=== PATIENT | female | born 1950 | race Caucasian/White ===

== ENCOUNTER 2016-12-25 05:18 | Inpatient (IN) | payer MEDICARE ==
[~2016-12-25] VITALS: Ht 165.1 cm; Wt 70.8 kg
[2016-12-25] VITALS (14 sets, daily range): BP systolic 116–148; BP diastolic 58–82
[~2016-12-25 05:18] MED LIST: ALPR1TAB2 PO; ASPI325T4 PO; ATORVASTATIN CA80 MG PO; CITA40TA5 PO; CLOP75TA PO; CYCL10TA2 PO; DOCU-27 PO; FURO80TA3 PO; GABA300S PO; GUAI1TAB PO; HYDR-2672 PO; ISOS60TA2 PO; LEVO500T38 PO; MULT-246 PO; OMEG1CAP38 PO; PANT40TA5 PO; POTA20TA12 PO; PRED-220 PO; PRED20TA PO; PROAIR HFA8.5 GM INH; SUCR1TAB PO; VERA180T4 PO; ZOLP10TA4 PO
[2016-12-25] MEDS ORDERED: IPRATRPIUM/ALBUTEROL 0.5/2.5MG 3 ML NEBU. NEB ONE (05:30)
[2016-12-25] MEDS ORDERED: IV NORMAL SALINE 500ML BAG 500 ML IV ONE (06:15)
[2016-12-25 06:16] LABS: BASO % 0 % (0-3); EOS % 0 % (0-3); HEMATOCRIT 39.7 % (36.0-47.0); HEMOGLOBIN 12.8 g/dL (12.0-15.5); LYMPH # 0.2 x10^3/uL (1.0-4.8); LYMPH % 2 % (24-48); MEAN CORPUSCULAR HEMOGLOBIN 26 pg (25-35); MEAN CORPUSCULAR HGB CONC 32 g/dL (31-37); MEAN CORPUSCULAR VOLUME 82 fL (79-100); MONO % 12 % (0-9); NEUT % 86 % (31-73); PLATELET COUNT 126 x10^3/uL (140-400); RED BLOOD COUNT 4.85 x10^6/uL (3.50-5.40); RED CELL DISTRIBUTION WIDTH 16.2 % (11.5-14.5); WHITE BLOOD COUNT 7.7 x10^3/uL (4.0-11.0)
[2016-12-25] MEDS ORDERED: DILTIAZEM IV PUSH 25 MG/5 ML VIAL. IVP ONE (06:30)
[2016-12-25] MEDS ORDERED: DILTIAZEM 125 MG in IV DEXTROSE 5% 100 ML IV ONE (06:30)
[2016-12-25 07:06] LABS: CALCIUM 9.2 mg/dL (8.5-10.1); CREATININE 0.8 mg/dL (0.6-1.0); POTASSIUM 3.2 mmol/L (3.5-5.1)
--- NOTE | 2016-12-25 07:31 | RAD ---
Portable chest, 12/25/2016: History: Shortness of breath Comparison is made to a study from 09/30/2016. The heart size and pulmonary vascularity are normal. There is calcific plaquing of the aorta. No pulmonary infiltrates are seen. There is no evidence of pleural fluid. IMPRESSION: No acute cardiopulmonary abnormality is detected.
--- NOTE | 2016-12-25 07:37 | PHYS DOC ---
Past Medical History Past Medical History: COPD, Depression, GERD, Hypertension, CA Additional Past Medical Histor: Alzheimer's, Chronic back and knee pain Past Surgical History: Angioplasty, Cholecystectomy, Hysterectomy, Other Additional Past Surgical Histo: WITH STENTS,KNEE SURGERY Alcohol Use: None Drug Use: None Adult General Chief Complaint Chief Complaint: SHORTNESS OF BREATH HPI HPI Patient is a 66 year old female who presents with complaint of shortness of breath. Patient states her symptoms started last night. The patient has history of COPD and is normally on 2 L nasal cannula. By arrival to the emergency department, the patient was found to have an O2 sat of 88%. The patient was given a DuoNeb treatment prior to my patient interview. The patient states that she is still having shortness of breath at this time. Patient has had history of atrial fibrillation in the past. Patient was found to have a rapid heartbeat area patient states that she does feel a rapid heart rate. Patient denies any chest pain, nausea, vomiting. Patient denies productive cough. Review of Systems Review of Systems Constitutional: Denies fever or chills [] Eyes: Denies change in visual acuity, redness, or eye pain [] HENT: Denies nasal congestion or sore throat [] Respiratory: Shortness of breath [] Cardiovascular: Racing heartbeat, edema [] GI: Denies abdominal pain, nausea, vomiting, bloody stools or diarrhea [] : Denies dysuria or hematuria [] Musculoskeletal: Denies back pain or joint pain [] Integument: Denies rash or skin lesions [] Neurologic: Denies headache, focal weakness or sensory changes [] Current Medications Current Medications Current Medications Medications (Trade) Dose Ordered Sig/Sima Start Time Stop Time Status Last Admin Dose Admin Albuterol/ Ipratropium 3 ml 3 ml 1X ONCE 12/25/16 05:30 12/25/16 05:31 DC 12/25/16 05:49 3 ML Sodium Chloride (Iv Sodium Chloride 0.9% 500ml Bag) 500 ml @ 500 mls/hr 1X ONCE 12/25/16 06:15 12/25/16 07:14 DC 12/25/16 06:09 500 MLS/HR Allergies Allergies Allergies Coded Allergies Type Severity Reaction Last Updated Verified I S O L A T I O N *CONTACT* Allergy Unknown 09/14/16 Yes No Known Medication Allergies Allergy Unknown 09/14/16 Yes Physical Exam Physical Exam Constitutional: Alert, afebrile, appears in moderate respiratory distress. [] HENT: Normocephalic, atraumatic, bilateral external ears normal, oropharynx moist, no oral exudates, nose normal. [] Eyes: PERRLA, EOMI, conjunctiva normal, no discharge. [] Neck: Normal range of motion, no tenderness, supple, no stridor. [] Cardiovascular: Tachycardia, irregular rhythm, no murmur [] Lungs & Thorax: Bilateral breath sounds clear to auscultation [] Abdomen: Bowel sounds normal, soft, no tenderness, no masses, no pulsatile masses. [] Skin: Warm, dry, no erythema, no rash. [] Back: No tenderness, no CVA tenderness. [] Extremities: No tenderness, no cyanosis, no clubbing, ROM intact, 2+ edema in the bilateral lower extremities. [] Neurologic: Alert and oriented X 3, normal motor function, normal sensory function, no focal deficits noted. [] Current Patient Data Vital Signs Vital Signs Date Time Temp Pulse Resp B/P Pulse Ox O2 Delivery O2 Flow Rate FiO2 12/25/16 05:53 114 21 115/77 96 12/25/16 05:52 Nasal Cannula 3.0 12/25/16 05:19 99.0 99.0 Lab Values Laboratory Tests Test 12/25/16 05:49 12/25/16 05:50 Influenza Type A Antigen Negative (NEGATIVE) Influenza Type B Antigen Negative (NEGATIVE) White Blood Count 7.7x10^3/uL (4.0-11.0) Red Blood Count 4.85x10^6/uL (3.50-5.40) Hemoglobin 12.8g/dL (12.0-15.5) Hematocrit 39.7% (36.0-47.0) Mean Corpuscular Volume 82fL (79-100) Mean Corpuscular Hemoglobin 26pg (25-35) Mean Corpuscular Hemoglobin Concent 32g/dL (31-37) Red Cell Distribution Width 16.2% (11.5-14.5) H Platelet Count 126x10^3/uL (140-400) L Neutrophils (%) (Auto) 86% (31-73) H Lymphocytes (%) (Auto) 2% (24-48) L Monocytes (%) (Auto) 12% (0-9) H Eosinophils (%) (Auto) 0% (0-3) Basophils (%) (Auto) 0% (0-3) Neutrophils # (Auto) 6.6x10^3uL (1.8-7.7) Lymphocytes # (Auto) 0.2x10^3/uL (1.0-4.8) L Monocytes # (Auto) 0.9x10^3/uL (0.0-1.1) Eosinophils # (Auto) 0.0x10^3/uL (0.0-0.7) Basophils # (Auto) 0.0x10^3/uL (0.0-0.2) Segmented Neutrophils % 89% (35-66) H Lymphocytes % 2% (24-48) L Monocytes % 9% (0-10) Platelet Estimate Decreased (ADEQUATE) Troponin I Quantitative 1.330ng/mL (0.000-0.055) Laboratory Tests 12/25/16 05:50 EKG EKG EKG #1 at 0530 interpreted by me: Heart rate 125, atrial fibrillation, normal axis, no acute ST/T-wave abnormalities present EKG #2 at 0605 interpreted by me: Heart rate 167, A. fib with RVR, normal axis, no acute ST/T-wave abnormalities present [] Radiology/Procedures Radiology/Procedures One view AP chest x-ray interpreted by me: No infiltrate, no effusion, normal cardiac silhouette [] Course & Med Decision Making Course & Med Decision Making Pertinent Labs and Imaging studies reviewed. (See chart for details) Patient was given IV Cardizem 20 mg bolus followed by continuous infusion. Patient found to have a positive troponin of 1.33. This is likely due to rapid heart rate. The patient will be admitted for further treatment. I spoke with Dr. Traylor who accepted care patient in hospital. I also consulted Dr. Meza of cardiology who will follow patient in hospital. Critical care time excluding procedures: 45 minutes Dragon Disclaimer Dragon Disclaimer This electronic medical record was generated, in whole or in part, using a voice recognition dictation system. Departure Departure Impression: Primary Impression: Atrial fibrillation with RVR Additional Impressions: COPD exacerbation Cardiac ischemia Disposition: ADMITTED INPATIENT Admitting Physician: Carl Traylor Condition: GUARDED Referrals: VÍCTOR STARK MD (PCP) Problem Qualifiers CLAUDETTE SNOW MD Dec 25, 2016 07:37
[2016-12-25 07:51] LABS: OBC FLU VALID
[2016-12-25 08:39] LABS: PLT ESTIMATE DECREASED (ADEQUATE)
--- NOTE | 2016-12-25 09:22 | EKG ---
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
--- NOTE | 2016-12-25 09:40 | ACF ---
Admit Criteria Forms Admit Criteria Forms Admit Criteria Forms ATRIAL FIBRILLATION Clinical Indications for Admission to Inpatient Care (Place 'X' for any and all applicable criteria): Admission indicated for ANY ONE of the following(1)(2)(3)(4)(5) : [X]I. Myocardial ischemia [X]II. Dyspnea or hypoxemia [ ]III. Hemodynamic instability [ ]IV. Heart failure (e.g., pulmonary edema) (7) [ ]V. New-onset (less than 48 hours) atrial fibrillation with high risk for causing complications secondary to comorbidities (eg, symptomatic heart failure ) [ ]. Altered mental status [ ]VII. Syncope [ ]VIII. Patient has implantable cardioverter defibrillator that has fired more than once within past 24hr or needs immediate adjustment of settings that cannot be done other than in inpatient setting. (8) [ ]IX. Suspected accessory pathway (e.g., Hkhkc-Bilhaztyo-Ndlfz syndrome) on ECG [ ]X. Recent systemic thromboembolism (eg, stroke) [ ]XI. Medication toxicity (e.g., digitalis) causing arrhythmia(9) [ ]XII. Underlying medical condition that necessitates inpatient care (e.g., thyrotoxicosis, pneumonia) (10) [ ]XIII. Continuous ECG monitoring is required for condition causing arrhythmia (e.g., severe hyperkalemia, hypokalemia, acid-base disturbance).(11)(12)(13) [ ]XIV. Initiation of antiarrhythmic drug therapy is needed in patient at high risk of adverse effects as indicated by ANY ONE of the following: [ ]a) Significant structural heart disease (e.g., reduced ejection fraction, congenital heart disease, valvular heart disease) [ ]b) Prolonged QT interval [ ]c) Underlying sinus node or atrioventricular conduction disturbances [ ]d) Need for treatment with antiarrhythmic drugs that have significant proarrhythmic potential (e.g., dofetilide, sotalol, procainamide) [ ]e) Patient whose sinus rhythm has never been observed on ECG [ ]XV. Intolerable symptoms despite optimal outpatient treatment [ ]XVI. Elective or urgent cardioversion that cannot be performed on outpatient basis or during observation care. [A] (Use also Atrial Fibrillation: Observation Care ) as appropriate.(14) [ ]XVII.Contraindications and/or Inappropriate clinical situations for Observational Care in patients with Atrial Fibrillation, when ANY ONE of the following is required: [ ]a) Patient with High risk of cardiac embolism (e.g, patients with previous cardiac embolism, LVEF < 40%, age >75 and patients with prosthetic valve) 18 [ ]b) Patient with Moderate risk including DM patient, CAD and patient aged 65-75 18 [ ]c) Patient with any change in cardiac biomarker especially troponin should be managed as high risk in an inpatient setting 19 [ ]d) Physician judgement irrespective of ECG and other diagnostic findings 20 [ ]XVIII.General contraindications and/or Inappropriate clinical situations for Observational Care in patients with Atrial Fibrillation, when ANY ONE of the following is required: [ ]a) Prediction of prolongation of LOS based on ANY ONE of the following may be considered as a contraindication for observational care 2, 3, 4, 5, 6, 7, 8, 9, 10, 11 [ ]i) Age > 65 yrs. [ ]ii) Patient arriving by ambulance [ ]iii) Patient with high acuity [ ]iv) Patient requiring vital sign monitoring [ ]v) Patient on IV medication [ ]b) Systolic blood pressures 180mmHg 3,12 [ ]c) Patient with altered mental status including delirium and other alteration of consciousness3 [ ]d) Patient whose discharge disposition will be to a residential home or rehabilitation home should not be managed in Emergency Department Observation Unit. CMS rule requires 3 days hospital stay before such placement.3,13 [ ]e) Patient with failure to thrive due to broad array of etiologies 3,16,17 [ ]f) Inability to ambulate 3,14 Extended stay beyond goal length of stay may be needed for (1)(25)(26): [ ]a) Unstable comorbidities [ ]b) Persistently uncontrolled atrial fibrillation or other arrhythmias [ ]c) Acute thromboembolic event (e.g., stroke, limb ischemia) [ ]d) Need for inpatient attainment of full anticoagulation The original [employer] content created by [employer] has been revised. The portions of the content which have been revised are identified through the use of italic text or in bold, and [employer] has neither reviewed nor approved the modified material. All other unmodified content is copyright [employer]. Please see references footnoted in the original [employer] edition 2016 JENNY MAURO Dec 25, 2016 09:40
--- NOTE | 2016-12-25 10:07 | EKG ---
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1950 Requested By: CLAUDETTE SNOW Order Number: [id number] Reading MD: Wes Garcia Measurements Intervals [place] Rate: 167 P: ID: QRS: 115 QRSD: 102 T: -78 QT: 298 QTc: 497 Interpretive Statements ATRIAL FIBRILLATION WITH RAPID VENTRICULAR RESPONSE COMPLEX(ES) WITH ABERRANT INTRAVENTRICULAR CONDUCTION ABNORMAL RIGHT AXIS DEVIATION LEFT POSTERIOR FASCICULAR BLOCK QRS(T) CONTOUR ABNORMALITY CONSISTENT WITH ANTERIOR INFARCT PROBABLY OLD CONSISTENT WITH INFEROLATERAL INFARCT AGE UNDETERMINED ABNORMAL ECG RI6.01 Electronically Signed On 01-11-2017 14:28:06 GEOSPATIAL PROGRAM MANAGEMENT OFFICER by Wes Garcia
--- NOTE | 2016-12-25 13:14 | PDOC2 ---
CAMI JOHNSON BRICK OR BLOCK MAKER 12/25/16 1314: CARDIAC CONSULT DATE OF CONSULT Date of Consult DATE: 12/25/16 TIME: 13:06 REASON FOR CONSULT Reason for Consult: AFIB with RVR REFERRING PHYSICIAN Referring Physician: Dr. Traylor SOURCE Source: Chart review, Patient HISTORY OF PRESENT ILLNESS HISTORY OF PRESENT ILLNESS This is a 66 yo female who presented with complaints of inability to move her lower extremities. Patient reports she woke up Sunday morning and was unable to get out of bed. Reports she was unable to feel or move her lower extremities. Had episode of incontinence in bed. Sister was concerned and called EMS. Was noted in AFIB with RVR upon arrival. Was treated with IV Cardizem bolus and gtt initiated. Covert to SR overnight. Patient additionally reports she has been experiencing productive cough and nasal/head congestion over the last couple weeks. Sister also ill. Thierry any chest pain, palpitations, SOA, dizziness, or syncope. Does reports diaphoresis overnight. H/o PVD. Patient reports LE are always cool to touch. Feeling/sensation has returned. Bilateral posterior tibial and left DP detected by doppler. Unable to doppler right DP pulse. Reports compliance with medications. PAST MEDICAL HISTORY Past Medical History Cardiovascular: CAD (with previous PCI to LAD, RCA, and circumflex with Cypher CRISTIAN 3.5 X 13, 2.75 X 18 and 3 X 13 mm - done at [facility] in 2008), HTN, Hyperlipidemia, PAD Pulmonary: COPD CENTRAL NERVOUS SYSTEM: Peripheral neuropathy GI: GERD Heme/Onc: No pertinent hx Hepatobiliary: No pertinent hx Psych: Anxiety, Depression Musculoskeletal: Osteoarthritis, lumbar stenosis ENT: No pertinent hx Renal/: No pertinent hx Endocrine: No pertinent hx Dermatology: No pertinent hx PAST SURGICAL HISTORY Past Surgical History Cholecystectomy, Hysterectomy FAMILY HISTORY Family History noncontributory SOCIAL HISTORY Social History Smoke: No ALCOHOL: none Drugs: None Lives: with Family CURRENT MEDICATIONS CURRENT MEDICATIONS Current Medications Medications (Trade) Dose Ordered Sig/Sima Route PRN Reason Start Time Stop Time Status Last Admin Dose Admin Albuterol/ Ipratropium 3 ml 3 ml 1X ONCE NEB 12/25/16 05:30 12/25/16 05:31 DC 12/25/16 05:49 Sodium Chloride (Iv Sodium Chloride 0.9% 500ml Bag) 500 ml @ 500 mls/hr 1X ONCE IV 12/25/16 06:15 12/25/16 07:14 DC 12/25/16 06:09 Diltiazem HCl 20 mg 20 mg 1X ONCE IVP 12/25/16 06:30 12/25/16 06:31 DC 12/25/16 06:30 Diltiazem HCl/ Dextrose (Cardizem) 125 ml @ 10 mls/hr 1X ONCE IV 12/25/16 06:30 12/25/16 18:59 12/25/16 06:30 ALLERGIES ALLERGIES: Coded Allergies: I S O L A T I O N *CONTACT* (Verified Allergy, Unknown, 09/14/16) ESBL No Known Medication Allergies (Verified Allergy, Unknown, 09/14/16) ROS Review of System 14 point ROS conducted with pertinent positives noted above in HPI PHYSICAL EXAM General: Alert, Oriented X3, Cooperative, No acute distress HEENT: Atraumatic Lungs: Other (expiratory wheezes throughout ) Heart: Regular rate, Normal S1, Normal S2, Other (2/6 systolic murmur, distant heart tones) Abdomen: Soft Extremities: Other (right foot mottling, bilateral posterior tibial and left DP pulses detected by doppler. unable to detect right DP pulse, 1+ bilateral LE edema. chronic venous stasis changes bi LE) Skin: No significant lesion Neuro: Normal speech, Sensation intact Psych/Mental Status: Mental status NL, Other (flat affect ) MUSCULOSKELETAL: Osteoarthritic changes both hands VITALS VITALS Vital Signs Date Time Temp Pulse Resp B/P Pulse Ox O2 Delivery O2 Flow Rate FiO2 12/25/16 13:05 96 Nasal Cannula 3.0 12/25/16 10:47 98.3 89 20 133/63 98.3 LABS Lab: Laboratory Tests Test 12/25/16 05:49 12/25/16 05:50 12/25/16 06:37 Influenza Type A Antigen Negative (NEGATIVE) Influenza Type B Antigen Negative (NEGATIVE) White Blood Count 7.7x10^3/uL (4.0-11.0) Red Blood Count 4.85x10^6/uL (3.50-5.40) Hemoglobin 12.8g/dL (12.0-15.5) Hematocrit 39.7% (36.0-47.0) Mean Corpuscular Volume 82fL (79-100) Mean Corpuscular Hemoglobin 26pg (25-35) Mean Corpuscular Hemoglobin Concent 32g/dL (31-37) Red Cell Distribution Width 16.2% (11.5-14.5) Platelet Count 126x10^3/uL (140-400) Neutrophils (%) (Auto) 86% (31-73) Lymphocytes (%) (Auto) 2% (24-48) Monocytes (%) (Auto) 12% (0-9) Eosinophils (%) (Auto) 0% (0-3) Basophils (%) (Auto) 0% (0-3) Neutrophils # (Auto) 6.6x10^3uL (1.8-7.7) Lymphocytes # (Auto) 0.2x10^3/uL (1.0-4.8) Monocytes # (Auto) 0.9x10^3/uL (0.0-1.1) Eosinophils # (Auto) 0.0x10^3/uL (0.0-0.7) Basophils # (Auto) 0.0x10^3/uL (0.0-0.2) Segmented Neutrophils % 89% (35-66) Lymphocytes % 2% (24-48) Monocytes % 9% (0-10) Platelet Estimate Decreased (ADEQUATE) Troponin I Quantitative 1.330ng/mL (0.000-0.055) Sodium Level 144mmol/L (136-145) Potassium Level 3.2mmol/L (3.5-5.1) Chloride Level 100mmol/L (98-107) Carbon Dioxide Level 33mmol/L (21-32) Anion Gap 11 (6-14) Blood Urea Nitrogen 14mg/dL (7-20) Creatinine 0.8mg/dL (0.6-1.0) Estimated GFR (Cockcroft-Gault) 72.0 Glucose Level 102mg/dL (70-99) Calcium Level 9.2mg/dL (8.5-10.1) ECHOCARDIOGRAM ECHOCARDIOGRAM <Conclusion> Normal LV systolic function. EF 55% No gross valvular abnormalities. DATE: 03/25/16 1653 STRESS TEST STRESS TEST Conclusion 1. No evidence of stress induced EKG changes. 2. Fixed inferior defect as described above. 3. Low normal EF at 50%. 4. Moderate risk based on degree of area previously affected. DATE: 06/28/16 1205 ASSESSMENT/PLAN ASSESSMENT/PLAN 1. Paroxysmal atrial fibrillation 2. NSTEMI 3. Coronary artery disease 4. Chronic diastolic heart failure; 03/2016 LVEF 55% 5. Acute on Chronic Respiratory Failure 6. AE COPD 7. Hypertension 8. Hyperlipidemia 9. Peripheral artery disease 10. h/o med non-compliance 11. Hypokalemia Recommendations Converted to SR with Cardizem. Will convert to oral for rate control Replace K. Check Mg. Recent TSH WNL LE doppler with diffuse plaquing bilaterally- medical management. Trop 7.474. Will start on heparin gtt for now and consider for cardiac cath in am- will discuss with primary cardiology Appears compensated from a HF standpoint; continue with routine diuresis Supportive care Problems: JIM GONZALEZ MD 12/25/162134: CARDIAC CONSULT ALLERGIES ALLERGIES: Coded Allergies: I S O L A T I O N *CONTACT* (Verified Allergy, Unknown, 09/14/16) ESBL No Known Medication Allergies (Verified Allergy, Unknown, 09/14/16) ASSESSMENT/PLAN ASSESSMENT/PLAN Pt. seen and examined. Agree with above STOPPERER ASSEMBLER note. 66 y.o woman with COPD, CAD presenting with NSTEMI On exam she has wheezing. No edema. Will plan for coronary angiography tomorrow. Problems: CAMI JOHNSON APRN Dec 25, 2016 13:14 JIM GONZALEZ MD Dec 25, 2016 21:35
[2016-12-25] MEDS ORDERED: IPRATRPIUM/ALBUTEROL 0.5/2.5MG 3 ML NEBU. NEB SCH (13:30)
--- NOTE | 2016-12-25 14:42 | RAD ---
INDICATION:weak and no pulses in both feet, red and edema. COMPARISON: None. Technique: Spectral Doppler, color and grayscale ultrasound images are obtained of the bilateral leg arterial structures. FINDINGS: Right: Biphasic waveform seen in right common femoral artery. There is more monophasic waveform seen extending from the superficial femoral artery through the popliteal artery. Monophasic waveform seen in the posterior tibial artery. Peroneal artery not well visualized. Anterior tibial and dorsalis pedis arteries are monophasic. Left: Monophasic waveforms in the left common femoral and superficial femoral artery. Popliteal artery is biphasic. Peroneal artery not visualized. Monophasic waveform in the posterior tibial, anterior tibial artery. Dorsalis pedis more biphasic. IMPRESSION: There is multifocal plaque seen throughout the vasculature of the bilateral legs. In addition there are monophasic waveforms seen bilaterally which can be seen with hemodynamically significant regions of narrowing. The bilateral peroneal arteries are not visualized therefore occlusion not excluded. Soft tissue edema is visualized
[2016-12-25] MEDS ORDERED: POTASSIUM CHLORIDE 20 MEQ TABLET.ER. PO ONE (15:00)
[2016-12-25] MEDS ORDERED: HEPARIN 25,000UTS/500ML PREMIX 500 ML IV PRN (15:00)
[2016-12-25] MEDS ORDERED: HEPARIN for IV BOLUS 10,000 UNIT/10 ML VIAL. IV PRN (15:00)
[2016-12-25] MEDS ORDERED: ANTI-COAG MONITOR BY PHARMACY. MC PRN (15:15)
[2016-12-25] MEDS: IPRATRPIUM/ALBUTEROL 0.5/2.5MG 3 ML NEBU. NEB SCH ×2 (15:39→19:49)
[2016-12-25] MEDS: ASPIRIN 325 MG TABLET PO SCH (15:47)
[2016-12-25] MEDS: FUROSEMIDE 80 MG TABLET PO SCH (15:48)
[2016-12-25] MEDS: ISOSORBIDE MONONITRATE ER 60 MG TAB.ER.24H PO SCH (15:48)
[2016-12-25] MEDS: PANTOPRAZOLE 40 MG TABLET. PO SCH (15:48)
[2016-12-25] MEDS: DILTIAZEM HCL 180 MG CAP.ER.24H PO SCH (15:48)
[2016-12-25] MEDS: ALBUTEROL SULFATE 2.5 MG/3 ML NEBU. NEB PRN (17:22)
[2016-12-25] MEDS ORDERED: MAGNESIUM SULFATE 2GM 50 ML IV ONE (17:30)
[2016-12-25] MEDS: POTASSIUM CHLORIDE 20 MEQ TABLET.ER. PO SCH (21:10)
[2016-12-25] MEDS: ATORVASTATIN CALCIUM 40 MG TABLET. PO SCH (21:10)
[2016-12-26] VITALS (8 sets, daily range): BP systolic 108–176; BP diastolic 68–96
[2016-12-26] MEDS: ALBUTEROL SULFATE 2.5 MG/3 ML NEBU. NEB PRN (02:05)
[2016-12-26] MEDS: LORAZEPAM 0.5 MG TABLET. PO PRN (02:45)
[2016-12-26 04:34] LABS: HEMATOCRIT 39.9 % (36.0-47.0); HEMOGLOBIN 12.9 g/dL (12.0-15.5); RED BLOOD COUNT 4.91 x10^6/uL (3.50-5.40); RED CELL DISTRIBUTION WIDTH 16.5 % (11.5-14.5)
[2016-12-26 05:14] LABS: CALCIUM 9.4 mg/dL (8.5-10.1); CREATININE 0.7 mg/dL (0.6-1.0); MAGNESIUM 1.8 mg/dL (1.8-2.4)
[2016-12-26 05:29] LABS: CHOLESTEROL/HDL RATIO 1.9; POTASSIUM 2.8 mmol/L (3.5-5.1)
[2016-12-26] MEDS ORDERED: POTASSIUM CHLORIDE 20 MEQ TABLET.ER. PO ONE (06:00)
[2016-12-26] MEDS: POTASSIUM CHLORIDE 10MEQ 100 ML IV SCH ×5 (06:34→15:29)
[2016-12-26] MEDS: ISOSORBIDE MONONITRATE ER 60 MG TAB.ER.24H PO SCH (08:29)
[2016-12-26] MEDS: FUROSEMIDE 80 MG TABLET PO SCH (08:30)
[2016-12-26] MEDS: DILTIAZEM HCL 180 MG CAP.ER.24H PO SCH (08:30)
[2016-12-26] MEDS: POTASSIUM CHLORIDE 20 MEQ TABLET.ER. PO SCH ×2 (09:00→21:33)
[2016-12-26] MEDS: ASPIRIN 325 MG TABLET PO SCH (09:00)
[2016-12-26] MEDS: PANTOPRAZOLE 40 MG TABLET. PO SCH (09:00)
[2016-12-26] MEDS: IPRATRPIUM/ALBUTEROL 0.5/2.5MG 3 ML NEBU. NEB SCH ×2 (09:01→12:27)
[2016-12-26] MEDS ORDERED: ALBUTEROL SULFATE 2.5 MG/3 ML NEBU. NEB PRN (09:30)
[2016-12-26] MEDS: HYDROCODONE/APAP 10/325 TABLET. PO PRN ×2 (09:48→18:22)
[2016-12-26] MEDS: OMEGA-3 FATTY ACIDS/FISH OIL 1,000 MG CAPSULE. PO SCH (10:00)
[2016-12-26] MEDS: ALPRAZOLAM 0.5 MG TABLET PO SCH ×3 (10:00→21:00)
[2016-12-26] MEDS ORDERED: VERAPAMIL SR 180 MG TABLET.ER. PO SCH (10:00)
[2016-12-26] MEDS ORDERED: IOHEXOL 300 MG/ML 100ML VIAL. ONE (10:51)
[2016-12-26] MEDS ORDERED: LIDOCAINE 2% 20 ML VIAL. ONE (10:52)
[2016-12-26 11:00] LABS: BILIRUBIN,URINE NEGATIVE (NEG); GLUCOSE,URINE NEGATIVE (NEG); NITRITE,URINE NEGATIVE (NEG); PROTEIN,URINE 100 mg/dL (NEG-TRACE)
[2016-12-26] MEDS: hydrALAZINE 20 MG/ML VIAL. IVP PRN (11:08)
[2016-12-26] MEDS ORDERED: FENTANYL PF 100 MCG/2 ML VIAL. ONE (11:19)
[2016-12-26] MEDS ORDERED: HEPARIN for IV BOLUS 10,000 UNIT/10 ML VIAL. ONE (11:19)
[2016-12-26] MEDS ORDERED: VERAPAMIL 5 MG/2 ML VIAL. ONE (11:19)
[2016-12-26] MEDS ORDERED: MIDAZOLAM HCL/PF 5 MG/5 ML VIAL ONE (11:19)
[2016-12-26] MEDS ORDERED: NITROGLYCERIN 200 MCG/2 ML SYRINGE FOR CATH/VASC LAB. ONE (11:19)
[2016-12-26] MEDS ORDERED: VERAPAMIL 5 MG/2 ML VIAL. IART ONE (11:30)
[2016-12-26] MEDS ORDERED: MIDAZOLAM HCL/PF 5 MG/5 ML VIAL IV ONE (11:30)
[2016-12-26] MEDS ORDERED: HEPARIN for IV BOLUS 10,000 UNIT/10 ML VIAL. IART ONE (11:30)
[2016-12-26] MEDS ORDERED: IOHEXOL 300 MG/ML 100ML VIAL. IART ONE (11:30)
[2016-12-26] MEDS ORDERED: LIDOCAINE 2% 20 ML VIAL. IJ ONE (11:30)
[2016-12-26] MEDS ORDERED: NITROGLYCERIN 200 MCG/2 ML SYRINGE FOR CATH/VASC LAB. IART ONE (11:30)
[2016-12-26] MEDS ORDERED: FENTANYL PF 100 MCG/2 ML VIAL. IV ONE (11:30)
[2016-12-26 11:58] LABS: BACTERIA,URINE 0 /HPF (0-FEW); WBC,URINE 0 /HPF (0-4)
[2016-12-26] MEDS ORDERED: CLOPIDOGREL BISULFATE 75 MG TABLET ONE (12:00)
[2016-12-26] MEDS ORDERED: CLOPIDOGREL BISULFATE 75 MG TABLET PO ONE (12:15)
[2016-12-26] MEDS ORDERED: ADENOSINE 6 MG/2 ML VIAL IV ONE (13:00)
[2016-12-26] MEDS: SUCRALFATE 1 GM TABLET. PO SCH ×3 (13:00→21:32)
--- NOTE | 2016-12-26 13:08 | PDOC1 ---
History and Physical Date of Admission Date of Admission 12/25/16 Identification/Chief Complaint Chief Complaint SOB Problems: Source Source: Chart review, Patient History of Present Illness History of Present Illness HPI HPI Patient is a 66 year old female who presents with complaint of shortness of breath. Pt said has been mild coughing with sob for 4 days, with substernal chest pain, cannot really tell me how it felt like, or radiation. home o2 2l, WAS FOUND SAT 88% IN er. RAPID afib IN ER HIGH TROPONIN. Past Medical History Cardiovascular: CAD, HTN Pulmonary: COPD, Pneumonia CENTRAL NERVOUS SYSTEM: Periperal neuropathy GI: Constipation Heme/Onc: Cancer Hepatobiliary: No pertinent hx Psych: Anxiety, Depression Renal/: No pertinent hx Endocrine: No pertinent hx Past Surgical History Past Surgical History: Cholecystectomy, Cataract Removal, Hysterectomy, Other Family History Family History: Other Social History Smoke: Quit ALCOHOL: none Drugs: None Current Problem List Problem List Problems Medical Problems: (1) Atrial fibrillation with RVR Status: Acute (2) Cardiac ischemia Status: Acute (3) COPD exacerbation Status: Acute Current Medications Current Medications Current Medications Medications (Trade) Dose Ordered Sig/Sima Start Time Stop Time Status Last Admin Dose Admin Acetaminophen/ Hydrocodone Bitart (Lortab 10/325) 1 tab PRN Q8HRS PRN 12/26/16 09:30 12/26/16 09:48 1 TAB Adenosine (Adenocard) 12 mg 1X ONCE 12/26/16 13:00 12/26/16 13:01 DC Albuterol Sulfate (Ventolin Neb Soln) 2.5 mg PRN Q4HRS PRN 12/26/16 09:30 Cancel Albuterol/ Ipratropium (Duoneb) 3 ml QID 12/25/16 13:30 12/25/16 14:46 DC 12/25/16 13:05 3 ML Albuterol/ Ipratropium 3 ml 3 ml RTQID 12/25/16 16:00 12/26/16 12:27 3 ML Alprazolam (Xanax) 0.5 mg TID 12/26/16 10:00 Aspirin (Dutch Aspirin) 325 mg DAILY 12/25/16 15:30 12/25/16 15:47 325 MG Atorvastatin Calcium (Lipitor) 80 mg QHS 12/25/16 21:00 12/25/16 21:10 80 MG Clopidogrel Bisulfate (Plavix) 600 mg 1X ONCE 12/26/16 12:15 12/26/16 12:16 DC 12/26/16 12:03 600 MG Cyclobenzaprine HCl (Flexeril) 10 mg PRN QHS PRN 12/26/16 09:30 Digoxin (Lanoxin) 500 mcg 1X ONCE 12/26/16 13:15 12/26/16 13:16 Diltiazem HCl (Cardizem 24hr Cd) 180 mg DAILY 12/25/16 15:30 12/26/16 08:30 180 MG Diltiazem HCl 20 mg 20 mg 1X ONCE 12/25/16 06:30 12/25/16 15:01 DC 12/25/16 06:30 20 MG Diltiazem HCl/ Dextrose (Cardizem) 125 ml @ 10 mls/hr 1X ONCE 12/25/16 06:30 12/25/16 15:01 DC 12/25/16 06:30 10 MLS/HR Docusate Sodium (Colace) 100 mg DAILY 12/26/16 10:00 Fentanyl Citrate (Fentanyl 2ml Vial) 100 mcg 1X ONCE 12/26/16 11:30 12/26/16 11:38 DC 12/26/16 11:53 25 MCG Fish Oil (Fish Oil) 1,000 mg DAILY 12/26/16 10:00 Furosemide (Lasix) 80 mg DAILY 12/25/16 15:30 12/26/16 08:30 80 MG Gabapentin (Neurontin) 300 mg QHS 12/26/16 21:00 Guaifenesin (Mucinex) 600 mg PRN BID PRN 12/26/16 21:00 Heparin Sodium (Porcine) 2,500 unit 1X ONCE 12/26/16 11:30 12/26/16 11:38 DC 12/26/16 11:55 2,500 UNIT Heparin Sodium/ Dextrose 500 ml @ 0 mls/hr CONT PRN 12/25/16 15:00 12/25/16 16:00 18.7 MLS/HR Heparin Sodium/ Sodium Chloride 1,000 unit 1X ONCE 12/26/16 11:30 12/26/16 11:38 DC 12/26/16 11:54 1,000 UNIT Hydralazine HCl (Apresoline) 10 mg PRN Q4HRS PRN 12/26/16 08:45 12/26/16 11:08 10 MG Info 1 each 1 each PRN DAILY PRN 12/25/16 15:15 Iohexol (Omnipaque 300 Mg/ml) 100 ml 1X ONCE 12/26/16 11:30 12/26/16 11:38 DC 12/26/16 11:53 102 ML Isosorbide Mononitrate (Imdur) 60 mg DAILY 12/25/16 15:30 12/26/16 08:29 60 MG Lidocaine HCl 20 ml 1X ONCE 12/26/16 11:30 12/26/16 11:38 DC 12/26/16 11:52 1 ML Lorazepam (Ativan) 0.5 mg PRN Q8HRS PRN 12/25/16 17:15 12/26/16 02:45 0.5 MG Magnesium Sulfate/ Dextrose (Magnesium Sulfate PREMIX 2GM) 50 ml @ 25 mls/hr 1X ONCE 12/25/16 17:30 12/25/16 19:29 DC 12/25/16 17:38 25 MLS/HR Midazolam HCl (Versed) 5 mg 1X ONCE 12/26/16 11:30 12/26/16 11:38 DC 12/26/16 11:52 1.5 MG Nitroglycerin (Nitroglycerin) 200 mcg 1X ONCE 12/26/16 11:30 12/26/16 11:38 DC 12/26/16 11:30 200 MCG Pantoprazole Sodium (Protonix) 40 mg DAILY 12/25/16 15:30 12/25/16 15:48 40 MG Potassium Chloride 40 meq 40 meq 1X ONCE 12/26/16 06:00 12/26/16 06:01 DC 12/26/16 06:34 40 MEQ Potassium Chloride (KCl Premix 10meq) 100 ml @ 100 mls/hr Q1H 12/26/16 06:00 12/26/16 09:59 DC 12/26/16 12:38 100 MLS/HR Potassium Chloride (Klor-Con) 40 meq 1X ONCE 12/25/16 15:00 12/25/16 15:01 DC 12/25/16 15:49 40 MEQ Prednisone (Prednisone) 10 mg DAILY 12/26/16 10:00 Sodium Chloride (Iv Sodium Chloride 0.9% 500ml Bag) 500 ml @ 500 mls/hr 1X ONCE 12/25/16 06:15 12/25/16 07:14 DC 12/25/16 06:09 500 MLS/HR Sucralfate (Carafate) 1 gm QID 12/26/16 13:00 Verapamil HCl (Calan Sr) 180 mg DAILY 12/26/16 10:00 12/26/16 10:12 180 MG Verapamil HCl (Verapamil) 2.5 mg 1X ONCE 12/26/16 11:30 12/26/16 11:38 DC 12/26/16 11:30 2.5 MG Allergies Allergies Allergies Coded Allergies Type Severity Reaction Last Updated Verified I S O L A T I O N *CONTACT* Allergy Unknown 09/14/16 Yes No Known Medication Allergies Allergy Unknown 09/14/16 Yes ROS Review of System CONSTITUTIONAL: No fever or chills EYES: No recent changes SKIN: No rash or itching CARDIOVASCULAR: No chest pain, syncope, palpitations, or edema RESPIRATORY: No SOB or cough GASTROINTESTINAL: No nausea, vomiting or abdominal pain NEUROLOGICAL: No headaches or weakness ENDOCRINE: No cold or heat intolerance GENITOURINARY: No urgency or frequency of urination MUSCULOSKELETAL: No back pain or joint pain LYMPHATICS: No enlarged lymph nodes PSYCHIATRIC: No anxiety or depression Physical Exam Physical Exam GEN.: No apparent distress. Alert and oriented. HEENT: Head is normocephalic, atraumatic NECK: Supple. LUNGS: Clear to auscultation. HEART: RRR, S1, S2 present. Peripheral pulses intact ABDOMEN: Soft, nontender. Positive bowel sounds. EXTREMITIES: Without any cyanosis. NEUROLOGIC: Normal speech, normal tone PSYCHIATRIC: Normal affect, normal mood. SKIN: No ulcerations Vitals Vitals Vital Signs Date Time Temp Pulse Resp B/P Pulse Ox O2 Delivery O2 Flow Rate FiO2 12/26/16 12:33 146/87 12/26/16 12:31 94 Nasal Cannula 3.0 12/26/16 11:53 25 12/26/16 11:47 86 12/26/16 10:10 98.8 98.8 Labs Labs Laboratory Tests Test 12/25/16 05:49 12/25/16 05:50 12/25/16 06:37 12/25/16 13:25 Influenza Type A Antigen Negative (NEGATIVE) Influenza Type B Antigen Negative (NEGATIVE) White Blood Count 7.7x10^3/uL (4.0-11.0) Red Blood Count 4.85x10^6/uL (3.50-5.40) Hemoglobin 12.8g/dL (12.0-15.5) Hematocrit 39.7% (36.0-47.0) Mean Corpuscular Volume 82fL (79-100) Mean Corpuscular Hemoglobin 26pg (25-35) Mean Corpuscular Hemoglobin Concent 32g/dL (31-37) Red Cell Distribution Width 16.2% (11.5-14.5) Platelet Count 126x10^3/uL (140-400) Neutrophils (%) (Auto) 86% (31-73) Lymphocytes (%) (Auto) 2% (24-48) Monocytes (%) (Auto) 12% (0-9) Eosinophils (%) (Auto) 0% (0-3) Basophils (%) (Auto) 0% (0-3) Neutrophils # (Auto) 6.6x10^3uL (1.8-7.7) Lymphocytes # (Auto) 0.2x10^3/uL (1.0-4.8) Monocytes # (Auto) 0.9x10^3/uL (0.0-1.1) Eosinophils # (Auto) 0.0x10^3/uL (0.0-0.7) Basophils # (Auto) 0.0x10^3/uL (0.0-0.2) Segmented Neutrophils % 89% (35-66) Lymphocytes % 2% (24-48) Monocytes % 9% (0-10) Platelet Estimate Decreased (ADEQUATE) Troponin I Quantitative 1.330ng/mL (0.000-0.055) 7.474ng/mL (0.000-0.055) Sodium Level 144mmol/L (136-145) Potassium Level 3.2mmol/L (3.5-5.1) Chloride Level 100mmol/L (98-107) Carbon Dioxide Level 33mmol/L (21-32) Anion Gap 11 (6-14) Blood Urea Nitrogen 14mg/dL (7-20) Creatinine 0.8mg/dL (0.6-1.0) Estimated GFR (Cockcroft-Gault) 72.0 Glucose Level 102mg/dL (70-99) Calcium Level 9.2mg/dL (8.5-10.1) Magnesium Level 1.7mg/dL (1.8-2.4) Test 12/25/16 18:30 12/25/16 22:24 12/26/16 03:45 12/26/16 08:00 Troponin I Quantitative 8.492ng/mL (0.000-0.055) Heparin Anti-Xa Act, Unfractionated 0.32IU/mL (0.30-0.70) 0.40IU/mL (0.30-0.70) White Blood Count 4.0x10^3/uL (4.0-11.0) Red Blood Count 4.91x10^6/uL (3.50-5.40) Hemoglobin 12.9g/dL (12.0-15.5) Hematocrit 39.9% (36.0-47.0) Mean Corpuscular Volume 81fL (79-100) Mean Corpuscular Hemoglobin 26pg (25-35) Mean Corpuscular Hemoglobin Concent 32g/dL (31-37) Red Cell Distribution Width 16.5% (11.5-14.5) Platelet Count 117x10^3/uL (140-400) Sodium Level 142mmol/L (136-145) Potassium Level 2.8mmol/L (3.5-5.1) Chloride Level 97mmol/L (98-107) Carbon Dioxide Level 36mmol/L (21-32) Anion Gap 9 (6-14) Blood Urea Nitrogen 10mg/dL (7-20) Creatinine 0.7mg/dL (0.6-1.0) Estimated GFR (Cockcroft-Gault) 84.0 Glucose Level 116mg/dL (70-99) Calcium Level 9.4mg/dL (8.5-10.1) Magnesium Level 1.8mg/dL (1.8-2.4) Triglycerides Level 53mg/dL (0-150) Cholesterol Level 182mg/dL (0-200) LDL Cholesterol, Calculated 75mg/dL (0-100) VLDL Cholesterol, Calculated 11mg/dL (0-40) HDL Cholesterol 96mg/dL (40-60) Cholesterol/HDL Ratio 1.9 Urine Collection Type U cath Urine Color Yellow Urine Clarity Clear Urine pH 8.0 Urine Specific Schurz 1.010 Urine Protein 100mg/dL (NEG-TRACE) Urine Glucose (UA) Negativemg/dL (NEG) Urine Ketones (Stick) Negativemg/dL (NEG) Urine Blood Large (NEG) Urine Nitrite Negative (NEG) Urine Bilirubin Negative (NEG) Urine Urobilinogen Dipstick 1.0mg/dL (0.2 mg/dL) Urine Leukocyte Esterase Negative (NEG) Urine RBC 11-20/HPF (0-2) Urine WBC 0/HPF (0-4) Urine Bacteria 0/HPF (0-FEW) Urine Mucus Slight/LPF Laboratory Tests Test 12/25/16 13:25 12/25/16 18:30 12/25/16 22:24 12/26/16 03:45 Magnesium Level 1.7mg/dL (1.8-2.4) 1.8mg/dL (1.8-2.4) Troponin I Quantitative 7.474ng/mL (0.000-0.055) 8.492ng/mL (0.000-0.055) Heparin Anti-Xa Act, Unfractionated 0.32IU/mL (0.30-0.70) 0.40IU/mL (0.30-0.70) White Blood Count 4.0x10^3/uL (4.0-11.0) Red Blood Count 4.91x10^6/uL (3.50-5.40) Hemoglobin 12.9g/dL (12.0-15.5) Hematocrit 39.9% (36.0-47.0) Mean Corpuscular Volume 81fL (79-100) Mean Corpuscular Hemoglobin 26pg (25-35) Mean Corpuscular Hemoglobin Concent 32g/dL (31-37) Red Cell Distribution Width 16.5% (11.5-14.5) Platelet Count 117x10^3/uL (140-400) Sodium Level 142mmol/L (136-145) Potassium Level 2.8mmol/L (3.5-5.1) Chloride Level 97mmol/L (98-107) Carbon Dioxide Level 36mmol/L (21-32) Anion Gap 9 (6-14) Blood Urea Nitrogen 10mg/dL (7-20) Creatinine 0.7mg/dL (0.6-1.0) Estimated GFR (Cockcroft-Gault) 84.0 Glucose Level 116mg/dL (70-99) Calcium Level 9.4mg/dL (8.5-10.1) Triglycerides Level 53mg/dL (0-150) Cholesterol Level 182mg/dL (0-200) LDL Cholesterol, Calculated 75mg/dL (0-100) VLDL Cholesterol, Calculated 11mg/dL (0-40) HDL Cholesterol 96mg/dL (40-60) Cholesterol/HDL Ratio 1.9 Test 12/26/16 08:00 Urine Collection Type U cath Urine Color Yellow Urine Clarity Clear Urine pH 8.0 Urine Specific Schurz 1.010 Urine Protein 100mg/dL (NEG-TRACE) Urine Glucose (UA) Negativemg/dL (NEG) Urine Ketones (Stick) Negativemg/dL (NEG) Urine Blood Large (NEG) Urine Nitrite Negative (NEG) Urine Bilirubin Negative (NEG) Urine Urobilinogen Dipstick 1.0mg/dL (0.2 mg/dL) Urine Leukocyte Esterase Negative (NEG) Urine RBC 11-20/HPF (0-2) Urine WBC 0/HPF (0-4) Urine Bacteria 0/HPF (0-FEW) Urine Mucus Slight/LPF VTE Prophylaxis Ordered VTE Prophylaxis Devices: Yes VTE Pharmacological Prophylaxi: Yes Assessment/Plan Assessment/Plan 1. ACUTE on chronic hypoxic resp failure with CHF, COPD 2. NSTEMI with chest pain 3. COPD 4. H/O CAD 5. htn 6.hld 7. GERD 8. DEmentia, mild 9. chronic back and knee pain 10. hypokalemia 11. hyomagnesemia 12. thrombocytopenia 13. rapid afib PLAN: .1. fu with card, on heparin drip, cath today 2. cont home meds 3. on cardizem 4. cont prednisone 10mg daily, duoneb gi ppx replete HEYDI SALDANA MD Dec 26, 2016 13:08
[2016-12-26] MEDS ORDERED: MAGNESIUM SULFATE 2GM 50 ML IV ONE (13:15)
[2016-12-26] MEDS ORDERED: DIGOXIN 500 MCG/2 ML AMPUL. IV ONE (13:15)
--- NOTE | 2016-12-26 14:11 | CARD ---
APPROVED REPORT Procedure(s) performed: Right transradial approach Left Heart Catheterization + Coronary angiography + Left ventriculography HISTORY The patient is a 66 year-old female with a history of : previous OK, diabetes mellitus with oral armen tment, coronary artery disease, chronic lung disease, previous PCI (The PCI date was 11/12/2008), hyper tension, dyslipidemia, family history of premature CAD. INDICATION The indication(s) include : non-STEMI . CASE TECHNIQUE During this case, Fluoroscopy and low osmolar contrast were used for imaging. PROCEDURE NARRATIVE The patient was brought electively to the cardiac catheterization lab. A timeout was performed confi rming the patient's name, date of , procedure, and site of procedure. All necessary personnel w ere wearing the appropriate protective equipment and radiation monitor devices. After explaining the risks and benefits of the procedure and alternatives, informed consent was obtained. (See nursing no pedro for medications administered). The right wrist was sterilely prepped and draped in the usual fas hion. The right wrist was infiltrated with 1 mL of 2% lidocaine for subcutaneous anesthesia. A 6 Fr ench Terumo glide sheath was inserted into the right radial artery without difficulty. Right and lef t coronary angiography was performed using a 6Fr TIG 4.0 catheter. Left ventricular end diastolic pr essure was obtained with a pigtail catheter and pullback was performed after left ventriculography. All catheter exchanges and advancements were performed over a guidewire. At case completion the righ t radial sheath was removed and a Terumo radial band was applied with 13 ml of air. The patient tole rated the procedure well and there were no immediate complications. HEMODYNAMICS: LVEDP 22 mm Hg No gradient on LV to aortic pullback. LEFT VENTRICULOGRAM: EF 25% There is severe global hypokinesis. No significant MR noted. CORONARY ANGIOGRAPHY: LM is a large caliber vessel with a patent stent extending into the LAD. The proximal edge of the graham nt has a 30-40% stenosis LAD is a large caliber tortous vessel with a patent LM into LAD stent with minimal ISR. D1 is a moderate caliber vessel with normal angiographic apeparance. LCx is a moderate caliber non-dominant vessel with a patent ostial ostent extending from the LM/LAD s tent in a T-stent manner versus culotte. OM1 is a moderate caliber vessel with normal angiographic appearance. RCA is a large caliber dominant vessel with mild diffuse irregularities with a mid stent with 40% ISR . RPDA and RPL are moderate caliber vessels with normal angiographic appearance. Conclusion 1. Mildly elevated left sided filling pressures. 2. Severe LV dysfunction. EF 25% 3. Three vessel CAD with patent LM into LCx and LAD stents. Patent RCA stent. 4. 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 Recommendations Aggressive Medical Therapy ASA 81mg daily Plavix 75mg daily.
[2016-12-26] MEDS: IPRATROPIUM BROMIDE 0.5 MG/2.5 ML NEBU. NEB SCH ×2 (16:02→19:42)
[2016-12-26] MEDS: DOCUSATE SODIUM 100 MG CAPSULE PO SCH (18:18)
[2016-12-26] MEDS: PREDNISONE 10 MG TABLET PO SCH (18:19)
[2016-12-26] MEDS: ATORVASTATIN CALCIUM 40 MG TABLET. PO SCH (21:31)
[2016-12-26] MEDS: GABAPENTIN 300 MG CAPSULE. PO SCH (21:31)
[2016-12-26] MEDS: GUAIFENESIN ER 600 MG TABLET.ER PO PRN (21:32)
[2016-12-26] MEDS: VERAPAMIL SR 180 MG TABLET.ER. PO SCH (21:32)
[2016-12-26] MEDS: CYCLOBENZAPRINE 10 MG TABLET. PO PRN (21:32)
[2016-12-27 03:14] VITALS: BP 112/76
[2016-12-27 06:04] LABS: BASO % 0 % (0-3); EOS % 0 % (0-3); HEMATOCRIT 41.4 % (36.0-47.0); HEMOGLOBIN 13.2 g/dL (12.0-15.5); LYMPH # 0.4 x10^3/uL (1.0-4.8); LYMPH % 10 % (24-48); MEAN CORPUSCULAR HEMOGLOBIN 27 pg (25-35); MEAN CORPUSCULAR HGB CONC 32 g/dL (31-37); MEAN CORPUSCULAR VOLUME 83 fL (79-100); MONO % 22 % (0-9); NEUT % 67 % (31-73); PLATELET COUNT 144 x10^3/uL (140-400); RED BLOOD COUNT 4.98 x10^6/uL (3.50-5.40); RED CELL DISTRIBUTION WIDTH 16.5 % (11.5-14.5); WHITE BLOOD COUNT 4.1 x10^3/uL (4.0-11.0)
[2016-12-27 07:00] VITALS: BP 126/88
[2016-12-27] MEDS: ALPRAZOLAM 0.5 MG TABLET PO SCH ×3 (07:55→20:38)
[2016-12-27] MEDS: SUCRALFATE 1 GM TABLET. PO SCH ×4 (07:56→20:39)
[2016-12-27] MEDS: DOCUSATE SODIUM 100 MG CAPSULE PO SCH (07:56)
[2016-12-27] MEDS: PANTOPRAZOLE 40 MG TABLET. PO SCH (07:56)
[2016-12-27] MEDS: FUROSEMIDE 80 MG TABLET PO SCH (07:56)
[2016-12-27] MEDS: ASPIRIN 325 MG TABLET PO SCH (07:56)
[2016-12-27] MEDS: PREDNISONE 10 MG TABLET PO SCH (07:56)
[2016-12-27] MEDS: POTASSIUM CHLORIDE 20 MEQ TABLET.ER. PO SCH ×2 (07:56→20:39)
[2016-12-27] MEDS: HYDROCODONE/APAP 10/325 TABLET. PO PRN ×2 (07:57→16:01)
[2016-12-27] MEDS: OMEGA-3 FATTY ACIDS/FISH OIL 1,000 MG CAPSULE. PO SCH (07:57)
[2016-12-27] MEDS: VERAPAMIL SR 180 MG TABLET.ER. PO SCH ×2 (08:00→20:39)
[2016-12-27] MEDS: ISOSORBIDE MONONITRATE ER 60 MG TAB.ER.24H PO SCH (08:00)
[2016-12-27] MEDS: IPRATROPIUM BROMIDE 0.5 MG/2.5 ML NEBU. NEB SCH ×2 (08:02→11:40)
[2016-12-27 08:37] LABS: CALCIUM 9.1 mg/dL (8.5-10.1); CREATININE 0.9 mg/dL (0.6-1.0); GFR 62.8; POTASSIUM 3.8 mmol/L (3.5-5.1)
[2016-12-27 11:26] VITALS: BP 98/69
[2016-12-27] MEDS: IPRATRPIUM/ALBUTEROL 0.5/2.5MG 3 ML NEBU. NEB SCH ×3 (11:40→19:13)
--- NOTE | 2016-12-27 11:46 | PDOC2 ---
Pulmonary Consultation Medications Current Medications Albuterol/ Ipratropium 3 ml 3 ml 1X ONCE NEB Last administered on 12/25/16 05 :49; Start 12/25/16 at 05:30; Stop 12/25/16 at 05:31; Status DC Sodium Chloride (Iv Sodium Chloride 0.9% 500ml Bag) 500 ml @ 500 mls/hr 1X ONCE IV Last administered on 12/25/16 06:09; Start 12/25/16 at 06:15; Stop at 07:14; Status DC Diltiazem HCl 20 mg 20 mg 1X ONCE IVP Last administered on 12/25/16 06:30; Start 12/25/16 at 06:30; Stop 12/25/16 at 15:01; Status DC Diltiazem HCl/ Dextrose (Cardizem) 125 ml @ 10 mls/hr 1X ONCE IV Last administered on 12/25/16 06:30; Start 12/25/16 at 06:30; Stop 12/25/16 at 15:01 ; Status DC Albuterol/ Ipratropium (Duoneb) 3 ml QID NEB Last administered on 12/25/16 13: 05; Start 12/25/16 at 13:30; Stop 12/25/16 at 14:46; Status DC Aspirin (Dutch Aspirin) 325 mg DAILY PO Last administered on 12/27/16 07:56; Start 12/25/16 at 15:30 Furosemide (Lasix) 80 mg DAILY PO Last administered on 12/27/16 07:56; Start 12/25/16 at 15:30 Isosorbide Mononitrate (Imdur) 60 mg DAILY PO Last administered on 12/27/16 08 :00; Start 12/25/16 at 15:30 Pantoprazole Sodium (Protonix) 40 mg DAILY PO Last administered on 12/27/16 07 :56; Start 12/25/16 at 15:30 Potassium Chloride (Klor-Con) 20 meq BID PO Last administered on 12/27/16 07: 56; Start 12/25/16 at 21:00 Atorvastatin Calcium (Lipitor) 80 mg QHS PO Last administered on 12/26/16 21: 31; Start 12/25/16 at 21:00 Potassium Chloride (Klor-Con) 40 meq 1X ONCE PO Last administered on 15:49; Start 12/25/16 at 15:00; Stop 12/25/16 at 15:01; Status DC Albuterol/ Ipratropium 3 ml 3 ml RTQID NEB Last administered on 12/26/16 12:27 ; Start 12/25/16 at 16:00; Stop 12/26/16 at 15:35; Status DC Heparin Sodium/ Dextrose 500 ml @ 0 mls/hr CONT PRN IV SEE I/O RECORD Last administered on 12/25/16 16:00; Start 12/25/16 at 15:00 Heparin Sodium (Porcine) 1,900 unit PRN Q6HRS PRN IV FOR UFH LEVEL LESS THAN 0.2; Start 12/25/16 at 15:00 Diltiazem HCl (Cardizem 24hr Cd) 180 mg DAILY PO Last administered on 08:30; Start 12/25/16 at 15:30; Stop 12/26/16 at 13:17; Status DC Info 1 each 1 each PRN DAILY PRN MC SEE COMMENTS Last administered on 13:01; Start 12/25/16 at 15:15 Magnesium Sulfate/ Dextrose (Magnesium Sulfate PREMIX 2GM) 50 ml @ 25 mls/hr 1X ONCE IV Last administered on 12/25/16 17:38; Start 12/25/16 at 17:30; Stop 12/25/16 at 19:29; Status DC Albuterol Sulfate (Ventolin Neb Soln) 2.5 mg PRN Q4HRS PRN NEB SHORTNESS OF BREATH Last administered on 12/26/16 02:05; Start 12/25/16 at 17:15 Lorazepam (Ativan) 0.5 mg PRN Q8HRS PRN PO ANXIETY / AGITATION Last administered on 12/26/16 02:45; Start 12/25/16 at 17:15 Potassium Chloride 40 meq 40 meq 1X ONCE PO Last administered on 12/26/16 06: 34; Start 12/26/16 at 06:00; Stop 12/26/16 at 06:01; Status DC Potassium Chloride (KCl Premix 10meq) 100 ml @ 100 mls/hr Q1H IV Last administered on 12/26/16 15:29; Start 12/26/16 at 06:00; Stop 12/26/16 at 09:59 ; Status DC Hydralazine HCl (Apresoline) 10 mg PRN Q4HRS PRN IVP ELEVATED BP, SEE COMMENTS Last administered on 12/26/16 11:08; Start 12/26/16 at 08:45 Alprazolam (Xanax) 0.5 mg TID PO Last administered on 12/27/16 07:55; Start at 10:00 Cyclobenzaprine HCl (Flexeril) 10 mg PRN QHS PRN PO MUSCLE SPASMS Last administered on 12/26/16 21:32; Start 12/26/16 at 09:30 Docusate Sodium (Colace) 100 mg DAILY PO Last administered on 12/27/16 07:56; Start 12/26/16 at 10:00 Acetaminophen/ Hydrocodone Bitart (Lortab 10/325) 1 tab PRN Q8HRS PRN PO PAIN Last administered on 12/27/16 07:57; Start 12/26/16 at 09:30 Prednisone (Prednisone) 10 mg DAILY PO Last administered on 12/27/16 07:56; Start 12/26/16 at 10:00 Verapamil HCl (Calan Sr) 180 mg DAILY PO Last administered on 12/26/16 10:12; Start 12/26/16 at 10:00; Stop 12/26/16 at 13:17; Status DC Gabapentin (Neurontin) 300 mg QHS PO Last administered on 12/26/16 21:31; Start 12/26/16 at 21:00 Guaifenesin (Mucinex) 600 mg PRN BID PRN PO CONGESTION Last administered on 21:32; Start 12/26/16 at 21:00 Fish Oil (Fish Oil) 1,000 mg DAILY PO Last administered on 12/27/16 07:57; Start 12/26/16 at 10:00 Sucralfate (Carafate) 1 gm QID PO Last administered on 12/27/16 07:56; Start 12/26/16 at 13:00 Albuterol Sulfate (Ventolin Neb Soln) 2.5 mg PRN Q4HRS PRN NEB SHORTNESS OF BREATH; Start 12/26/16 at 09:30; Status Cancel Iohexol 100 ml 100 ml STK-MED ONCE .ROUTE ; Start 12/26/16 at 10:51; Stop at 10:52; Status DC Heparin Sodium/ Sodium Chloride 1,000 ml @ As Directed STK-MED ONCE .ROUTE ; Start 12/26/16 at 10:51; Stop 12/26/16 at 10:52; Status DC Lidocaine HCl 20 ml STK-MED ONCE .ROUTE ; Start 12/26/16 at 10:52; Stop at 10:53; Status DC Nitroglycerin (Nitroglycerin) 200 mcg STK-MED ONCE .ROUTE ; Start 12/26/16 at 11 :19; Stop 12/26/16 at 11:20; Status DC Verapamil HCl (Verapamil) 5 mg STK-MED ONCE .ROUTE ; Start 12/26/16 at 11:19; Stop 12/26/16 at 11:20; Status DC Heparin Sodium (Porcine) 10,000 unit STK-MED ONCE .ROUTE ; Start 12/26/16 at 11: 19; Stop 12/26/16 at 11:20; Status DC Fentanyl Citrate (Fentanyl 2ml Vial) 100 mcg STK-MED ONCE .ROUTE ; Start at 11:19; Stop 12/26/16 at 11:20; Status DC Midazolam HCl (Versed) 5 mg STK-MED ONCE .ROUTE ; Start 12/26/16 at 11:19; Stop 12/26/16 at 11:20; Status DC Nitroglycerin (Nitroglycerin) 200 mcg 1X ONCE IART Last administered on 11:30; Start 12/26/16 at 11:30; Stop 12/26/16 at 11:38; Status DC Verapamil HCl (Verapamil) 2.5 mg 1X ONCE IART Last administered on 12/26/16 11:30; Start 12/26/16 at 11:30; Stop 12/26/16 at 11:38; Status DC Heparin Sodium (Porcine) 2,500 unit 1X ONCE IART Last administered on 11:55; Start 12/26/16 at 11:30; Stop 12/26/16 at 11:38; Status DC Heparin Sodium/ Sodium Chloride 1,000 unit 1X ONCE IART Last administered on 11:54; Start 12/26/16 at 11:30; Stop 12/26/16 at 11:38; Status DC Midazolam HCl (Versed) 5 mg 1X ONCE IV Last administered on 12/26/16 11:52; Start 12/26/16 at 11:30; Stop 12/26/16 at 11:38; Status DC Fentanyl Citrate (Fentanyl 2ml Vial) 100 mcg 1X ONCE IV Last administered on 11:53; Start 12/26/16 at 11:30; Stop 12/26/16 at 11:38; Status DC Iohexol (Omnipaque 300 Mg/ml) 100 ml 1X ONCE IART Last administered on 11:53; Start 12/26/16 at 11:30; Stop 12/26/16 at 11:38; Status DC Lidocaine HCl 20 ml 1X ONCE IJ Last administered on 12/26/16 11:52; Start at 11:30; Stop 12/26/16 at 11:38; Status DC Clopidogrel Bisulfate (Plavix) 75 mg STK-MED ONCE .ROUTE ; Start 12/26/16 at 12: 00; Stop 12/26/16 at 12:01; Status DC Clopidogrel Bisulfate (Plavix) 600 mg 1X ONCE PO Last administered on 12:03; Start 12/26/16 at 12:15; Stop 12/26/16 at 12:16; Status DC Digoxin (Lanoxin) 500 mcg 1X ONCE IV Last administered on 12/26/16 13:14; Start 12/26/16 at 13:15; Stop 12/26/16 at 13:16; Status DC Adenosine (Adenocard) 12 mg 1X ONCE IV Last administered on 12/26/16 13:08; Start 12/26/16 at 13:00; Stop 12/26/16 at 13:01; Status DC Verapamil HCl 180 mg 180 mg BID PO Last administered on 12/27/16 08:00; Start 12/26/16 at 21:00 Magnesium Sulfate/ Dextrose (Magnesium Sulfate PREMIX 2GM) 50 ml @ 25 mls/hr STAT ONCE IV Last administered on 12/26/16 13:55; Start 12/26/16 at 13:15; Stop 2/14/17 at 15:14; Status DC Ipratropium [place] (Atrovent) 0.5 mg RTQID NEB Last administered on 12/27/16t 11:40; Start 12/26/16 at 16:00 Digoxin (Lanoxin) 125 mcg DAILY PO ; Start 12/27/16 at 12:00 Active Scripts Active Hydrocodone-Apap 10-325 (Hydrocodone Bit/Acetaminophen) 1 Each Tablet 1 Tab PO Q8HRS PRN Reported Prednisone 10 Mg Tablet 10 Mg PO DAILY Proair Hfa Inhaler (Albuterol Sulfate) 8.5 Gm Hfa.aer.ad 1 Puff INH PRN Q6HRS PRN Zolpidem Tartrate 10 Mg Tablet 1 Tab PO QHS Verapamil Er (Verapamil Hcl) 180 Mg Tablet.er 180 Mg PO DAILY Pantoprazole Sodium 40 Mg Tablet.dr 1 Tab PO DAILY [place] 3 Fish Oil Softgel ([place]-3 Fatty Acids/Fish Oil) 1 Each Capsule.dr 1 Each PO DAILY Multi-Vitamin Daily (Multivitamin) 1 Each Tablet 1 Each PO Isosorbide Mononitrate Er (Isosorbide Mononitrate) 60 Mg Tab.er.24h 1.5 Tab PO DAILY Gabapentin Oral Solution (Gabapentin) 300 Mg/6 Ml Solution 300 Mg PO HS Furosemide 80 Mg Tablet 1 Tab PO DAILY Colace (Docusate Sodium) 100 Mg Capsule 1 Cap PO DAILY Cyclobenzaprine Hcl 10 Mg Tablet 1 Tab PO QHS PRN Atorvastatin Calcium 80 Mg Tablet 1 Tab PO HS PRN Aspirin 325 Mg Tablet 1 Tab PO DAILY Xanax (Alprazolam) 1 Mg Tablet 1 Tab PO TID Mucus And Cough Relief Tablet (Guaifenesin/Dextromethorphan) 1 Each Tablet 1 Each PO Q4-6HRS PRN Potassium Chloride 20 Meq Tab.er.prt 1 Tab PO BID Sucralfate 1 Gm Tablet 1 Tab PO QID Allergies Allergies Coded Allergies Type Severity Reaction Last Updated Verified I S O L A T I O N *CONTACT* Allergy Unknown 09/14/16 Yes No Known Medication Allergies Allergy Unknown 09/14/16 Yes Vital Signs Vital Signs Date Time Temp Pulse Resp B/P Pulse Ox O2 Delivery O2 Flow Rate FiO2 12/27/16 11:40 Nasal Cannula 3.0 12/27/16 11:26 97.4 50 19 98/69 95 97.4 Last Labs Laboratory Tests Test 12/27/16 05:44 2/15/17 08:10 White Blood Count 4.1x10^3/uL (4.0-11.0) Red Blood Count 4.98x10^6/uL (3.50-5.40) Hemoglobin 13.2g/dL (12.0-15.5) Hematocrit 41.4% (36.0-47.0) Mean Corpuscular Volume 83fL (79-100) Mean Corpuscular Hemoglobin 27pg (25-35) Mean Corpuscular Hemoglobin Concent 32g/dL (31-37) Red Cell Distribution Width 16.5% (11.5-14.5) Platelet Count 144x10^3/uL (140-400) Neutrophils (%) (Auto) 67% (31-73) Lymphocytes (%) (Auto) 10% (24-48) Monocytes (%) (Auto) 22% (0-9) Eosinophils (%) (Auto) 0% (0-3) Basophils (%) (Auto) 0% (0-3) Neutrophils # (Auto) 2.8x10^3uL (1.8-7.7) Lymphocytes # (Auto) 0.4x10^3/uL (1.0-4.8) Monocytes # (Auto) 0.9x10^3/uL (0.0-1.1) Eosinophils # (Auto) 0.0x10^3/uL (0.0-0.7) Basophils # (Auto) 0.0x10^3/uL (0.0-0.2) Magnesium Level 2.1mg/dL (1.8-2.4) Sodium Level 143mmol/L (136-145) Potassium Level 3.8mmol/L (3.5-5.1) Chloride Level 98mmol/L (98-107) Carbon Dioxide Level 36mmol/L (21-32) Anion Gap 9 (6-14) Blood Urea Nitrogen 18mg/dL (7-20) Creatinine 0.9mg/dL (0.6-1.0) Estimated GFR (Cockcroft-Gault) 62.8 Glucose Level 119mg/dL (70-99) Calcium Level 9.1mg/dL (8.5-10.1) ESCOBAR BALL MD Dec 27, 2016 11:46
[2016-12-27 12:14] LABS: ANISOCYTOSIS SLIGHT; PLT ESTIMATE ADEQUATE (ADEQUATE)
[2016-12-27 12:15] LABS: BURR CELLS FEW; OVALOCYTES PRESENT
[2016-12-27] MEDS: CYCLOBENZAPRINE 10 MG TABLET. PO PRN (13:21)
[2016-12-27] MEDS: DIGOXIN 125 MCG TABLET PO SCH (13:22)
--- NOTE | 2016-12-27 13:49 | PDOC ---
CAMI JOHNSON [employer]INATION SPINNER 12/27/16 1349: CARDIO Progress Notes Date and Time Date of Service 12/27/16 Time of Evaluation 1010 Subjective Subjective: Other (lower back pain, uncomfortable in bed. ) Vitals Vitals Vital Signs Date Time Temp Pulse Resp B/P Pulse Ox O2 Delivery O2 Flow Rate FiO2 12/27/16 13:22 89 123/62 12/27/16 11:40 Nasal Cannula 3.0 12/27/16 11:26 97.4 19 95 97.4 Weight Weight [ ] Input and Output Intake and Output Intake and Output 12/27/16 06:59 Intake Total 995 ml Output Total 3400 ml Balance -2405 ml Intake Oral 995 ml Output Urine Total 3400 ml Laboratory Labs Laboratory Tests Test 12/27/16 05:44 12/27/16 08:10 White Blood Count 4.1x10^3/uL (4.0-11.0) Red Blood Count 4.98x10^6/uL (3.50-5.40) Hemoglobin 13.2g/dL (12.0-15.5) Hematocrit 41.4% (36.0-47.0) Mean Corpuscular Volume 83fL (79-100) Mean Corpuscular Hemoglobin 27pg (25-35) Mean Corpuscular Hemoglobin Concent 32g/dL (31-37) Red Cell Distribution Width 16.5% (11.5-14.5) Platelet Count 144x10^3/uL (140-400) Neutrophils (%) (Auto) 67% (31-73) Lymphocytes (%) (Auto) 10% (24-48) Monocytes (%) (Auto) 22% (0-9) Eosinophils (%) (Auto) 0% (0-3) Basophils (%) (Auto) 0% (0-3) Neutrophils # (Auto) 2.8x10^3uL (1.8-7.7) Lymphocytes # (Auto) 0.4x10^3/uL (1.0-4.8) Monocytes # (Auto) 0.9x10^3/uL (0.0-1.1) Eosinophils # (Auto) 0.0x10^3/uL (0.0-0.7) Basophils # (Auto) 0.0x10^3/uL (0.0-0.2) Segmented Neutrophils % 53% (35-66) Band Neutrophils % 16% (0-9) Lymphocytes % 11% (24-48) Monocytes % 20% (0-10) Platelet Estimate Adequate (ADEQUATE) Anisocytosis Slight Ovalocytes Present [place] Cells Few Magnesium Level 2.1mg/dL (1.8-2.4) Sodium Level 143mmol/L (136-145) Potassium Level 3.8mmol/L (3.5-5.1) Chloride Level 98mmol/L (98-107) Carbon Dioxide Level 36mmol/L (21-32) Anion Gap 9 (6-14) Blood Urea Nitrogen 18mg/dL (7-20) Creatinine 0.9mg/dL (0.6-1.0) Estimated GFR (Cockcroft-Gault) 62.8 Glucose Level 119mg/dL (70-99) Calcium Level 9.1mg/dL (8.5-10.1) Physical Exam HEENT: Neck Supple W Full Motion Chest: Symmetric LUNGS: Other (fine ext. wheezes) Heart: S1S2, RRR, other (2/6 systolic murmur ) Abdomen: Soft N/T Extremities: No Edema, Other (1+ bilateral DP pulses. Chronic venous stasis changes to bi LE. Bi feet cool to touch. ) Neurology: alert, follow commands, other (anxious ) Assessment Assessment 1. Paroxysmal atrial fibrillation 2. SVT 3. NSTEMI s/p cath with no obstructive CAD 4. Chronic diastolic heart failure; 03/2016 LVEF 55% 5. Acute on Chronic Respiratory Failure 6. Hypertension 7. Peripheral artery disease Recommendations Bradycardia noted in vital sign recordings; telemetry reviewed with no evidence of bradycardia noted. Tachy throughout evening but HR stable overnight. Will add dig for rate control in addition to Verapamil If further paroxysmal episodes occur; will consider Sotalol for rhythm maintenance Compensated from HF standpoint; continue with routine diuresis Supportive care JIM GONZALEZ MD 12/28/16 0933: CARDIO Progress Notes Plan Plan Late entry for 12/27/2016. Pt. seen and examined. 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 Patient stable overnight. HR has been stable. On exam she still has rhonchi/wheezing. On cath her volume status was wnl. Await pulmonary input. Continue supportive care with Verapamil/Dig. She might ultimately be a candidate for ablation for atrial tachycardia/AVNRT if she is stable from a psychiatric perspective given her anxiety issues. CAMI JOHNSON APRN Dec 27, 2016 13:49 JIM GONZALEZ MD Dec 28, 2016 09:33
--- NOTE | 2016-12-27 13:58 | PDOC ---
PROGRESS NOTES Chief Complaint Chief Complaint 1. ACUTE on chronic hypoxic resp failure with COPD 2. NSTEMI s/p PCI with 2 stents 3. COPD 4. H/O CAD 5. htn 6.hld 7. GERD 8. DEmentia, mild 9. chronic back and knee pain 10. hypokalemia 11. hyomagnesemia 12. thrombocytopenia 13. rapid afib 14. CHF diastolic , stable 15. SVT POST cath 16. PAD PLAN: .1. fu with card. post Cath , fu pulm 2. cont home meds 3. off cardizem, on dig and verapimil. ON ASA, plavix, lipitor 4. cont prednisone 10mg daily, duoneb gi ppx replete K History of Present Illness History of Present Illness post cath on 12/26, 2 stents SVT at night, got adenosine 2 times, then dig sob, home o2 2.5L, now 3 Vitals Vitals Vital Signs Date Time Temp Pulse Resp B/P Pulse Ox O2 Delivery O2 Flow Rate FiO2 12/27/16 13:22 89 123/62 12/27/16 11:40 Nasal Cannula 3.0 12/27/16 11:26 97.4 19 95 97.4 Physical Exam General: Alert, Oriented X3, Cooperative, No acute distress Heart: Regular rate, Normal S1, Normal S2, Other (2/6 systolic murmur, distant heart tones) Lungs: Other (BL DECREASED BS) Abdomen: Soft Extremities: Other (right foot mottling, bilateral posterior tibial and left DP pulses detected by doppler. unable to detect right DP pulse, 1+ bilateral LE edema. chronic venous stasis changes bi LE) Skin: No significant lesion Labs LABS Laboratory Tests Test 12/27/16 05:44 12/27/16 08:10 White Blood Count 4.1x10^3/uL (4.0-11.0) Red Blood Count 4.98x10^6/uL (3.50-5.40) Hemoglobin 13.2g/dL (12.0-15.5) Hematocrit 41.4% (36.0-47.0) Mean Corpuscular Volume 83fL (79-100) Mean Corpuscular Hemoglobin 27pg (25-35) Mean Corpuscular Hemoglobin Concent 32g/dL (31-37) Red Cell Distribution Width 16.5% (11.5-14.5) Platelet Count 144x10^3/uL (140-400) Neutrophils (%) (Auto) 67% (31-73) Lymphocytes (%) (Auto) 10% (24-48) Monocytes (%) (Auto) 22% (0-9) Eosinophils (%) (Auto) 0% (0-3) Basophils (%) (Auto) 0% (0-3) Neutrophils # (Auto) 2.8x10^3uL (1.8-7.7) Lymphocytes # (Auto) 0.4x10^3/uL (1.0-4.8) Monocytes # (Auto) 0.9x10^3/uL (0.0-1.1) Eosinophils # (Auto) 0.0x10^3/uL (0.0-0.7) Basophils # (Auto) 0.0x10^3/uL (0.0-0.2) Segmented Neutrophils % 53% (35-66) Band Neutrophils % 16% (0-9) Lymphocytes % 11% (24-48) Monocytes % 20% (0-10) Platelet Estimate Adequate (ADEQUATE) Anisocytosis Slight Ovalocytes Present [place] Cells Few Magnesium Level 2.1mg/dL (1.8-2.4) Sodium Level 143mmol/L (136-145) Potassium Level 3.8mmol/L (3.5-5.1) Chloride Level 98mmol/L (98-107) Carbon Dioxide Level 36mmol/L (21-32) Anion Gap 9 (6-14) Blood Urea Nitrogen 18mg/dL (7-20) Creatinine 0.9mg/dL (0.6-1.0) Estimated GFR (Cockcroft-Gault) 62.8 Glucose Level 119mg/dL (70-99) Calcium Level 9.1mg/dL (8.5-10.1) Assessment and Plan Assessmemt and Plan Problems Medical Problems: (1) Atrial fibrillation with RVR Status: Acute (2) Cardiac ischemia Status: Acute (3) COPD exacerbation Status: Acute Problems: Comment Review of Relevant I have reviewed the following items claudia (where applicable) has been applied. Labs Laboratory Tests Test 12/25/16 18:30 12/25/16 22:24 12/26/16 03:45 12/26/16 08:00 Troponin I Quantitative 8.492ng/mL (0.000-0.055) Heparin Anti-Xa Act, Unfractionated 0.32IU/mL (0.30-0.70) 0.40IU/mL (0.30-0.70) White Blood Count 4.0x10^3/uL (4.0-11.0) Red Blood Count 4.91x10^6/uL (3.50-5.40) Hemoglobin 12.9g/dL (12.0-15.5) Hematocrit 39.9% (36.0-47.0) Mean Corpuscular Volume 81fL (79-100) Mean Corpuscular Hemoglobin 26pg (25-35) Mean Corpuscular Hemoglobin Concent 32g/dL (31-37) Red Cell Distribution Width 16.5% (11.5-14.5) Platelet Count 117x10^3/uL (140-400) Sodium Level 142mmol/L (136-145) Potassium Level 2.8mmol/L (3.5-5.1) Chloride Level 97mmol/L (98-107) Carbon Dioxide Level 36mmol/L (21-32) Anion Gap 9 (6-14) Blood Urea Nitrogen 10mg/dL (7-20) Creatinine 0.7mg/dL (0.6-1.0) Estimated GFR (Cockcroft-Gault) 84.0 Glucose Level 116mg/dL (70-99) Calcium Level 9.4mg/dL (8.5-10.1) Magnesium Level 1.8mg/dL (1.8-2.4) Triglycerides Level 53mg/dL (0-150) Cholesterol Level 182mg/dL (0-200) LDL Cholesterol, Calculated 75mg/dL (0-100) VLDL Cholesterol, Calculated 11mg/dL (0-40) HDL Cholesterol 96mg/dL (40-60) Cholesterol/HDL Ratio 1.9 Urine Collection Type U cath Urine Color Yellow Urine Clarity Clear Urine pH 8.0 Urine Specific [place] 1.010 Urine Protein 100mg/dL (NEG-TRACE) Urine Glucose (UA) Negativemg/dL (NEG) Urine Ketones (Stick) Negativemg/dL (NEG) Urine Blood Large (NEG) Urine Nitrite Negative (NEG) Urine Bilirubin Negative (NEG) Urine Urobilinogen Dipstick 1.0mg/dL (0.2 mg/dL) Urine Leukocyte Esterase Negative (NEG) Urine RBC 11-20/HPF (0-2) Urine WBC 0/HPF (0-4) Urine Bacteria 0/HPF (0-FEW) Urine Mucus Slight/LPF Test 12/27/16 05:44 12/27/16 08:10 White Blood Count 4.1x10^3/uL (4.0-11.0) Red Blood Count 4.98x10^6/uL (3.50-5.40) Hemoglobin 13.2g/dL (12.0-15.5) Hematocrit 41.4% (36.0-47.0) Mean Corpuscular Volume 83fL (79-100) Mean Corpuscular Hemoglobin 27pg (25-35) Mean Corpuscular Hemoglobin Concent 32g/dL (31-37) Red Cell Distribution Width 16.5% (11.5-14.5) Platelet Count 144x10^3/uL (140-400) Neutrophils (%) (Auto) 67% (31-73) Lymphocytes (%) (Auto) 10% (24-48) Monocytes (%) (Auto) 22% (0-9) Eosinophils (%) (Auto) 0% (0-3) Basophils (%) (Auto) 0% (0-3) Neutrophils # (Auto) 2.8x10^3uL (1.8-7.7) Lymphocytes # (Auto) 0.4x10^3/uL (1.0-4.8) Monocytes # (Auto) 0.9x10^3/uL (0.0-1.1) Eosinophils # (Auto) 0.0x10^3/uL (0.0-0.7) Basophils # (Auto) 0.0x10^3/uL (0.0-0.2) Segmented Neutrophils % 53% (35-66) Band Neutrophils % 16% (0-9) Lymphocytes % 11% (24-48) Monocytes % 20% (0-10) Platelet Estimate Adequate (ADEQUATE) Anisocytosis Slight Ovalocytes Present [place] Cells Few Magnesium Level 2.1mg/dL (1.8-2.4) Sodium Level 143mmol/L (136-145) Potassium Level 3.8mmol/L (3.5-5.1) Chloride Level 98mmol/L (98-107) Carbon Dioxide Level 36mmol/L (21-32) Anion Gap 9 (6-14) Blood Urea Nitrogen 18mg/dL (7-20) Creatinine 0.9mg/dL (0.6-1.0) Estimated GFR (Cockcroft-Gault) 62.8 Glucose Level 119mg/dL (70-99) Calcium Level 9.1mg/dL (8.5-10.1) Laboratory Tests Test 12/27/16 05:44 12/27/16 08:10 White Blood Count 4.1x10^3/uL (4.0-11.0) Red Blood Count 4.98x10^6/uL (3.50-5.40) Hemoglobin 13.2g/dL (12.0-15.5) Hematocrit 41.4% (36.0-47.0) Mean Corpuscular Volume 83fL (79-100) Mean Corpuscular Hemoglobin 27pg (25-35) Mean Corpuscular Hemoglobin Concent 32g/dL (31-37) Red Cell Distribution Width 16.5% (11.5-14.5) Platelet Count 144x10^3/uL (140-400) Neutrophils (%) (Auto) 67% (31-73) Lymphocytes (%) (Auto) 10% (24-48) Monocytes (%) (Auto) 22% (0-9) Eosinophils (%) (Auto) 0% (0-3) Basophils (%) (Auto) 0% (0-3) Neutrophils # (Auto) 2.8x10^3uL (1.8-7.7) Lymphocytes # (Auto) 0.4x10^3/uL (1.0-4.8) Monocytes # (Auto) 0.9x10^3/uL (0.0-1.1) Eosinophils # (Auto) 0.0x10^3/uL (0.0-0.7) Basophils # (Auto) 0.0x10^3/uL (0.0-0.2) Segmented Neutrophils % 53% (35-66) Band Neutrophils % 16% (0-9) Lymphocytes % 11% (24-48) Monocytes % 20% (0-10) Platelet Estimate Adequate (ADEQUATE) Anisocytosis Slight Ovalocytes Present [place] Cells Few Magnesium Level 2.1mg/dL (1.8-2.4) Sodium Level 143mmol/L (136-145) Potassium Level 3.8mmol/L (3.5-5.1) Chloride Level 98mmol/L (98-107) Carbon Dioxide Level 36mmol/L (21-32) Anion Gap 9 (6-14) Blood Urea Nitrogen 18mg/dL (7-20) Creatinine 0.9mg/dL (0.6-1.0) Estimated GFR (Cockcroft-Gault) 62.8 Glucose Level 119mg/dL (70-99) Calcium Level 9.1mg/dL (8.5-10.1) Medications Current Medications Albuterol/ Ipratropium 3 ml 3 ml 1X ONCE NEB Last administered on 12/25/16 05 :49; Start 12/25/16 at 05:30; Stop 12/25/16 at 05:31; Status DC Sodium Chloride (Iv Sodium Chloride 0.9% 500ml Bag) 500 ml @ 500 mls/hr 1X ONCE IV Last administered on 12/25/16 06:09; Start 12/25/16 at 06:15; Stop at 07:14; Status DC Diltiazem HCl 20 mg 20 mg 1X ONCE IVP Last administered on 12/25/16 06:30; Start 12/25/16 at 06:30; Stop 12/25/16 at 15:01; Status DC Diltiazem HCl/ Dextrose (Cardizem) 125 ml @ 10 mls/hr 1X ONCE IV Last administered on 12/25/16 06:30; Start 12/25/16 at 06:30; Stop 12/25/16 at 15:01 ; Status DC Albuterol/ Ipratropium (Duoneb) 3 ml QID NEB Last administered on 12/25/16 13: 05; Start 12/25/16 at 13:30; Stop 12/25/16 at 14:46; Status DC Aspirin ([place] Aspirin) 325 mg DAILY PO Last administered on 12/27/16 07:56; Start 12/25/16 at 15:30 Furosemide (Lasix) 80 mg DAILY PO Last administered on 12/27/16 07:56; Start 12/25/16 at 15:30 Isosorbide Mononitrate (Imdur) 60 mg DAILY PO Last administered on 12/27/16 08 :00; Start 12/25/16 at 15:30 Pantoprazole Sodium (Protonix) 40 mg DAILY PO Last administered on 12/27/16 07 :56; Start 12/25/16 at 15:30 Potassium Chloride (Klor-Con) 20 meq BID PO Last administered on 12/27/16 07: 56; Start 12/25/16 at 21:00 Atorvastatin Calcium (Lipitor) 80 mg QHS PO Last administered on 12/26/16 21: 31; Start 12/25/16 at 21:00 Potassium Chloride (Klor-Con) 40 meq 1X ONCE PO Last administered on 15:49; Start 12/25/16 at 15:00; Stop 12/25/16 at 15:01; Status DC Albuterol/ Ipratropium 3 ml 3 ml RTQID NEB Last administered on 12/26/16 12:27 ; Start 12/25/16 at 16:00; Stop 12/26/16 at 15:35; Status DC Heparin Sodium/ Dextrose 500 ml @ 0 mls/hr CONT PRN IV SEE I/O RECORD Last administered on 12/25/16 16:00; Start 12/25/16 at 15:00 Heparin Sodium (Porcine) 1,900 unit PRN Q6HRS PRN IV FOR UFH LEVEL LESS THAN 0.2; Start 12/25/16 at 15:00 Diltiazem HCl (Cardizem 24hr Cd) 180 mg DAILY PO Last administered on 08:30; Start 12/25/16 at 15:30; Stop 12/26/16 at 13:17; Status DC Info 1 each 1 each PRN DAILY PRN MC SEE COMMENTS Last administered on 13:01; Start 12/25/16 at 15:15 Magnesium Sulfate/ Dextrose (Magnesium Sulfate PREMIX 2GM) 50 ml @ 25 mls/hr 1X ONCE IV Last administered on 12/25/16 17:38; Start 12/25/16 at 17:30; Stop 12/25/16 at 19:29; Status DC Albuterol Sulfate (Ventolin Neb Soln) 2.5 mg PRN Q4HRS PRN NEB SHORTNESS OF BREATH Last administered on 12/26/16 02:05; Start 12/25/16 at 17:15 Lorazepam (Ativan) 0.5 mg PRN Q8HRS PRN PO ANXIETY / AGITATION Last administered on 12/26/16 02:45; Start 12/25/16 at 17:15 Potassium Chloride 40 meq 40 meq 1X ONCE PO Last administered on 12/26/16 06: 34; Start 12/26/16 at 06:00; Stop 12/26/16 at 06:01; Status DC Potassium Chloride (KCl Premix 10meq) 100 ml @ 100 mls/hr Q1H IV Last administered on 12/26/16 15:29; Start 12/26/16 at 06:00; Stop 12/26/16 at 09:59 ; Status DC Hydralazine HCl (Apresoline) 10 mg PRN Q4HRS PRN IVP ELEVATED BP, SEE COMMENTS Last administered on 12/26/16 11:08; Start 12/26/16 at 08:45 Alprazolam (Xanax) 0.5 mg TID PO Last administered on 12/27/16 13:22; Start at 10:00 Cyclobenzaprine HCl (Flexeril) 10 mg PRN QHS PRN PO MUSCLE SPASMS Last administered on 12/27/16 13:21; Start 12/26/16 at 09:30 Docusate Sodium (Colace) 100 mg DAILY PO Last administered on 12/27/16 07:56; Start 12/26/16 at 10:00 Acetaminophen/ Hydrocodone Bitart (Lortab 10/325) 1 tab PRN Q8HRS PRN PO PAIN Last administered on 12/27/16 07:57; Start 12/26/16 at 09:30 Prednisone (Prednisone) 10 mg DAILY PO Last administered on 12/27/16 07:56; Start 12/26/16 at 10:00 Verapamil HCl (Calan Sr) 180 mg DAILY PO Last administered on 12/26/16 10:12; Start 12/26/16 at 10:00; Stop 12/26/16 at 13:17; Status DC Gabapentin (Neurontin) 300 mg QHS PO Last administered on 12/26/16 21:31; Start 12/26/16 at 21:00 Guaifenesin (Mucinex) 600 mg PRN BID PRN PO CONGESTION Last administered on 21:32; Start 12/26/16 at 21:00 Fish Oil (Fish Oil) 1,000 mg DAILY PO Last administered on 12/27/16 07:57; Start 12/26/16 at 10:00 Sucralfate (Carafate) 1 gm QID PO Last administered on 12/27/16 13:22; Start 12/26/16 at 13:00 Albuterol Sulfate (Ventolin Neb Soln) 2.5 mg PRN Q4HRS PRN NEB SHORTNESS OF BREATH; Start 12/26/16 at 09:30; Status Cancel Iohexol 100 ml 100 ml STK-MED ONCE .ROUTE ; Start 12/26/16 at 10:51; Stop at 10:52; Status DC Heparin Sodium/ Sodium Chloride 1,000 ml @ As Directed STK-MED ONCE .ROUTE ; Start 12/26/16 at 10:51; Stop 12/26/16 at 10:52; Status DC Lidocaine HCl 20 ml STK-MED ONCE .ROUTE ; Start 12/26/16 at 10:52; Stop at 10:53; Status DC Nitroglycerin (Nitroglycerin) 200 mcg STK-MED ONCE .ROUTE ; Start 12/26/16 at 11 :19; Stop 12/26/16 at 11:20; Status DC Verapamil HCl (Verapamil) 5 mg STK-MED ONCE .ROUTE ; Start 12/26/16 at 11:19; Stop 12/26/16 at 11:20; Status DC Heparin Sodium (Porcine) 10,000 unit STK-MED ONCE .ROUTE ; Start 12/26/16 at 11: 19; Stop 12/26/16 at 11:20; Status DC Fentanyl Citrate (Fentanyl 2ml Vial) 100 mcg STK-MED ONCE .ROUTE ; Start at 11:19; Stop 12/26/16 at 11:20; Status DC Midazolam HCl (Versed) 5 mg STK-MED ONCE .ROUTE ; Start 12/26/16 at 11:19; Stop 12/26/16 at 11:20; Status DC Nitroglycerin (Nitroglycerin) 200 mcg 1X ONCE IART Last administered on 11:30; Start 12/26/16 at 11:30; Stop 12/26/16 at 11:38; Status DC Verapamil HCl (Verapamil) 2.5 mg 1X ONCE IART Last administered on 12/26/16 11:30; Start 12/26/16 at 11:30; Stop 12/26/16 at 11:38; Status DC Heparin Sodium (Porcine) 2,500 unit 1X ONCE IART Last administered on 11:55; Start 12/26/16 at 11:30; Stop 12/26/16 at 11:38; Status DC Heparin Sodium/ Sodium Chloride 1,000 unit 1X ONCE IART Last administered on 11:54; Start 12/26/16 at 11:30; Stop 12/26/16 at 11:38; Status DC Midazolam HCl (Versed) 5 mg 1X ONCE IV Last administered on 12/26/16 11:52; Start 12/26/16 at 11:30; Stop 12/26/16 at 11:38; Status DC Fentanyl Citrate (Fentanyl 2ml Vial) 100 mcg 1X ONCE IV Last administered on 11:53; Start 12/26/16 at 11:30; Stop 12/26/16 at 11:38; Status DC Iohexol (Omnipaque 300 Mg/ml) 100 ml 1X ONCE IART Last administered on 11:53; Start 12/26/16 at 11:30; Stop 12/26/16 at 11:38; Status DC Lidocaine HCl 20 ml 1X ONCE IJ Last administered on 12/26/16 11:52; Start at 11:30; Stop 12/26/16 at 11:38; Status DC Clopidogrel Bisulfate (Plavix) 75 mg STK-MED ONCE .ROUTE ; Start 12/26/16 at 12: 00; Stop 12/26/16 at 12:01; Status DC Clopidogrel Bisulfate (Plavix) 600 mg 1X ONCE PO Last administered on 12:03; Start 12/26/16 at 12:15; Stop 12/26/16 at 12:16; Status DC Digoxin (Lanoxin) 500 mcg 1X ONCE IV Last administered on 12/26/16 13:14; Start 12/26/16 at 13:15; Stop 12/26/16 at 13:16; Status DC Adenosine (Adenocard) 12 mg 1X ONCE IV Last administered on 12/26/16 13:08; Start 12/26/16 at 13:00; Stop 12/26/16 at 13:01; Status DC Verapamil HCl 180 mg 180 mg BID PO Last administered on 12/27/16 08:00; Start 12/26/16 at 21:00 Magnesium Sulfate/ Dextrose (Magnesium Sulfate PREMIX 2GM) 50 ml @ 25 mls/hr STAT ONCE IV Last administered on 12/26/16 13:55; Start 12/26/16 at 13:15; Stop 12/26/16 at 15:14; Status DC Ipratropium [place] (Atrovent) 0.5 mg RTQID NEB Last administered on 12/27/16 11:40; Start 12/26/16 at 16:00; Stop 12/27/16 at 11:50; Status DC Digoxin (Lanoxin) 125 mcg DAILY PO Last administered on 12/27/16 13:22; Start 12/27/16 at 12:00 Albuterol/ Ipratropium (Duoneb) 3 ml RTQID NEB ; Start 12/27/16 at 12:00 Active Scripts Active Hydrocodone-Apap 10-325 (Hydrocodone Bit/Acetaminophen) 1 Each Tablet 1 Tab PO Q8HRS PRN Reported Prednisone 10 Mg Tablet 10 Mg PO DAILY Proair Hfa Inhaler (Albuterol Sulfate) 8.5 Gm Hfa.aer.ad 1 Puff INH PRN Q6HRS PRN Zolpidem Tartrate 10 Mg Tablet 1 Tab PO QHS Verapamil Er (Verapamil Hcl) 180 Mg Tablet.er 180 Mg PO DAILY Pantoprazole Sodium 40 Mg Tablet. 1 Tab PO DAILY [place] 3 Fish Oil Softgel ([place]-3 Fatty Acids/Fish Oil) 1 Each Capsule.dr 1 Each PO DAILY Multi-Vitamin Daily (Multivitamin) 1 Each Tablet 1 Each PO Isosorbide Mononitrate Er (Isosorbide Mononitrate) 60 Mg Tab.er.24h 1.5 Tab PO DAILY Gabapentin Oral Solution (Gabapentin) 300 Mg/6 Ml Solution 300 Mg PO HS Furosemide 80 Mg Tablet 1 Tab PO DAILY Colace (Docusate Sodium) 100 Mg Capsule 1 Cap PO DAILY Cyclobenzaprine Hcl 10 Mg Tablet 1 Tab PO QHS PRN Atorvastatin Calcium 80 Mg Tablet 1 Tab PO HS PRN Aspirin 325 Mg Tablet 1 Tab PO DAILY Xanax (Alprazolam) 1 Mg Tablet 1 Tab PO TID Mucus And Cough Relief Tablet (Guaifenesin/Dextromethorphan) 1 Each Tablet 1 Each PO Q4-6HRS PRN Potassium Chloride 20 Meq Tab.er.prt 1 Tab PO BID Sucralfate 1 Gm Tablet 1 Tab PO QID Vitals/I & O Vital Sign - Last 24 Hours 12/26/16 12/26/16 12/26/16 12/26/16 15:23 16:05 18:22 19:44 Pulse 114 Resp 26 B/P 150/89 Pulse Ox 94 94 94 O2 Delivery Nasal Cannula Nasal Cannula Nasal Cannula Nasal Cannula O2 Flow Rate 2.0 3.0 3.0 3.0 12/26/16 12/26/16 12/26/16 12/26/16 20:00 20:19 21:32 23:40 Temp 97.5 97.4 97.5 97.4 Pulse 53 96 77 Resp 18 20 B/P 120/90 150/89 108/68 Pulse Ox 94 93 O2 Delivery Nasal Cannula Nasal Cannula Nasal Cannula O2 Flow Rate 3.0 3.0 3.0 12/27/16 12/27/16 12/27/16 12/27/16 03:14 07:00 07:57 08:00 Temp 97.7 98.3 97.7 98.3 Pulse 54 101 101 Resp 18 18 20 B/P 112/76 126/88 126/88 Pulse Ox 91 94 91 O2 Delivery Nasal Cannula Nasal Cannula Nasal Cannula O2 Flow Rate 3.0 3.0 3.0 12/27/16 12/27/16 12/27/16 12/27/16 08:00 08:01 08:02 08:57 Pulse 101 Resp 18 B/P 126/88 Pulse Ox 95 95 O2 Delivery Nasal Cannula Nasal Cannula Nasal Cannula O2 Flow Rate 3.0 3.0 3.0 12/27/16 12/27/16 12/27/16 11:26 11:40 13:22 Temp 97.4 97.4 Pulse 50 89 Resp 19 B/P 98/69 123/62 Pulse Ox 95 O2 Delivery Nasal Cannula Nasal Cannula O2 Flow Rate 3.0 3.0 Intake and Output 12/26/16 12/26/16 12/27/16 15:00 23:00 07:00 Intake Total 375 ml 620 ml Output Total 2500 ml 900 ml Balance -2125 ml -280 ml HEYDI IGLESIAS MD Dec 27, 2016 13:57
[2016-12-27 14:38] VITALS: BP 126/80
--- NOTE | 2016-12-27 17:52 | PDOC ---
PULMONARY PROGRESS NOTES Vitals Vital Signs Date Time Temp Pulse Resp B/P Pulse Ox O2 Delivery O2 Flow Rate FiO2 12/27/16 17:01 20 95 Nasal Cannula 3.0 12/27/16 14:38 97.4 126/80 97.4 12/27/16 13:22 89 General: Alert, No acute distress Lungs: Other (BL DECREASED BS) Cardiovascular: S1, S2 Abdomen: Soft, Non-tender Extremities: Other Labs Laboratory Tests Test 12/25/16 18:30 12/25/16 22:24 12/26/16 03:45 12/26/16 08:00 Troponin I Quantitative 8.492ng/mL (0.000-0.055) Heparin Anti-Xa Act, Unfractionated 0.32IU/mL (0.30-0.70) 0.40IU/mL (0.30-0.70) White Blood Count 4.0x10^3/uL (4.0-11.0) Red Blood Count 4.91x10^6/uL (3.50-5.40) Hemoglobin 12.9g/dL (12.0-15.5) Hematocrit 39.9% (36.0-47.0) Mean Corpuscular Volume 81fL (79-100) Mean Corpuscular Hemoglobin 26pg (25-35) Mean Corpuscular Hemoglobin Concent 32g/dL (31-37) Red Cell Distribution Width 16.5% (11.5-14.5) Platelet Count 117x10^3/uL (140-400) Sodium Level 142mmol/L (136-145) Potassium Level 2.8mmol/L (3.5-5.1) Chloride Level 97mmol/L (98-107) Carbon Dioxide Level 36mmol/L (21-32) Anion Gap 9 (6-14) Blood Urea Nitrogen 10mg/dL (7-20) Creatinine 0.7mg/dL (0.6-1.0) Estimated GFR (Cockcroft-Gault) 84.0 Glucose Level 116mg/dL (70-99) Calcium Level 9.4mg/dL (8.5-10.1) Magnesium Level 1.8mg/dL (1.8-2.4) Triglycerides Level 53mg/dL (0-150) Cholesterol Level 182mg/dL (0-200) LDL Cholesterol, Calculated 75mg/dL (0-100) VLDL Cholesterol, Calculated 11mg/dL (0-40) HDL Cholesterol 96mg/dL (40-60) Cholesterol/HDL Ratio 1.9 Urine Collection Type U cath Urine Color Yellow Urine Clarity Clear Urine pH 8.0 Urine Specific [place] 1.010 Urine Protein 100mg/dL (NEG-TRACE) Urine Glucose (UA) Negativemg/dL (NEG) Urine Ketones (Stick) Negativemg/dL (NEG) Urine Blood Large (NEG) Urine Nitrite Negative (NEG) Urine Bilirubin Negative (NEG) Urine Urobilinogen Dipstick 1.0mg/dL (0.2 mg/dL) Urine Leukocyte Esterase Negative (NEG) Urine RBC 11-20/HPF (0-2) Urine WBC 0/HPF (0-4) Urine Bacteria 0/HPF (0-FEW) Urine Mucus Slight/LPF Test 12/27/16 05:44 12/27/16 08:10 White Blood Count 4.1x10^3/uL (4.0-11.0) Red Blood Count 4.98x10^6/uL (3.50-5.40) Hemoglobin 13.2g/dL (12.0-15.5) Hematocrit 41.4% (36.0-47.0) Mean Corpuscular Volume 83fL (79-100) Mean Corpuscular Hemoglobin 27pg (25-35) Mean Corpuscular Hemoglobin Concent 32g/dL (31-37) Red Cell Distribution Width 16.5% (11.5-14.5) Platelet Count 144x10^3/uL (140-400) Neutrophils (%) (Auto) 67% (31-73) Lymphocytes (%) (Auto) 10% (24-48) Monocytes (%) (Auto) 22% (0-9) Eosinophils (%) (Auto) 0% (0-3) Basophils (%) (Auto) 0% (0-3) Neutrophils # (Auto) 2.8x10^3uL (1.8-7.7) Lymphocytes # (Auto) 0.4x10^3/uL (1.0-4.8) Monocytes # (Auto) 0.9x10^3/uL (0.0-1.1) Eosinophils # (Auto) 0.0x10^3/uL (0.0-0.7) Basophils # (Auto) 0.0x10^3/uL (0.0-0.2) Segmented Neutrophils % 53% (35-66) Band Neutrophils % 16% (0-9) Lymphocytes % 11% (24-48) Monocytes % 20% (0-10) Platelet Estimate Adequate (ADEQUATE) Anisocytosis Slight Ovalocytes Present [place] Cells Few Magnesium Level 2.1mg/dL (1.8-2.4) Sodium Level 143mmol/L (136-145) Potassium Level 3.8mmol/L (3.5-5.1) Chloride Level 98mmol/L (98-107) Carbon Dioxide Level 36mmol/L (21-32) Anion Gap 9 (6-14) Blood Urea Nitrogen 18mg/dL (7-20) Creatinine 0.9mg/dL (0.6-1.0) Estimated GFR (Cockcroft-Gault) 62.8 Glucose Level 119mg/dL (70-99) Calcium Level 9.1mg/dL (8.5-10.1) Laboratory Tests Test 12/27/16 05:44 12/27/16 08:10 White Blood Count 4.1x10^3/uL (4.0-11.0) Red Blood Count 4.98x10^6/uL (3.50-5.40) Hemoglobin 13.2g/dL (12.0-15.5) Hematocrit 41.4% (36.0-47.0) Mean Corpuscular Volume 83fL (79-100) Mean Corpuscular Hemoglobin 27pg (25-35) Mean Corpuscular Hemoglobin Concent 32g/dL (31-37) Red Cell Distribution Width 16.5% (11.5-14.5) Platelet Count 144x10^3/uL (140-400) Neutrophils (%) (Auto) 67% (31-73) Lymphocytes (%) (Auto) 10% (24-48) Monocytes (%) (Auto) 22% (0-9) Eosinophils (%) (Auto) 0% (0-3) Basophils (%) (Auto) 0% (0-3) Neutrophils # (Auto) 2.8x10^3uL (1.8-7.7) Lymphocytes # (Auto) 0.4x10^3/uL (1.0-4.8) Monocytes # (Auto) 0.9x10^3/uL (0.0-1.1) Eosinophils # (Auto) 0.0x10^3/uL (0.0-0.7) Basophils # (Auto) 0.0x10^3/uL (0.0-0.2) Segmented Neutrophils % 53% (35-66) Band Neutrophils % 16% (0-9) Lymphocytes % 11% (24-48) Monocytes % 20% (0-10) Platelet Estimate Adequate (ADEQUATE) Anisocytosis Slight Ovalocytes Present Sherry Cells Few Magnesium Level 2.1mg/dL (1.8-2.4) Sodium Level 143mmol/L (136-145) Potassium Level 3.8mmol/L (3.5-5.1) Chloride Level 98mmol/L (98-107) Carbon Dioxide Level 36mmol/L (21-32) Anion Gap 9 (6-14) Blood Urea Nitrogen 18mg/dL (7-20) Creatinine 0.9mg/dL (0.6-1.0) Estimated GFR (Cockcroft-Gault) 62.8 Glucose Level 119mg/dL (70-99) Calcium Level 9.1mg/dL (8.5-10.1) Medications Active Scripts Medications Dose Route/Sig Days Date Category Prednisone 10 Mg Tablet 10 Mg PO DAILY 09/13/16 Reported Proair Hfa Inhaler (Albuterol Sulfate) 8.5 Gm Hfa.aer.ad 1 Puff INH PRN Q6HRS PRN 08/01/16 Reported Hydrocodone-Apap 10-325 (Hydrocodone Bit/Acetaminophen) 1 Each Tablet 1 Tab PO Q8HRS PRN 07/19/16 Rx Zolpidem Tartrate 10 Mg Tablet 1 Tab PO QHS 10/31/15 Reported Verapamil Er (Verapamil Hcl) 180 Mg Tablet.er 180 Mg PO DAILY 10/31/15 Reported Pantoprazole Sodium 40 Mg Tablet.dr 1 Tab PO DAILY 10/31/15 Reported [place] 3 Fish Oil Softgel ([place]-3 Fatty Acids/Fish Oil) 1 Each Capsule.dr 1 Each PO DAILY 10/31/15 Reported Multi-Vitamin Daily (Multivitamin) 1 Each Tablet 1 Each PO 10/31/15 Reported Isosorbide Mononitrate Er (Isosorbide Mononitrate) 60 Mg Tab.er.24h 1.5 Tab PO DAILY 10/31/15 Reported Gabapentin Oral Solution (Gabapentin) 300 Mg/6 Ml Solution 300 Mg PO HS 10/31/15 Reported Furosemide 80 Mg Tablet 1 Tab PO DAILY 10/31/15 Reported Colace (Docusate Sodium) 100 Mg Capsule 1 Cap PO DAILY 10/31/15 Reported Cyclobenzaprine Hcl 10 Mg Tablet 1 Tab PO QHS PRN 10/31/15 Reported Atorvastatin Calcium 80 Mg Tablet 1 Tab PO HS PRN 10/31/15 Reported Aspirin 325 Mg Tablet 1 Tab PO DAILY 10/31/15 Reported Xanax (Alprazolam) 1 Mg Tablet 1 Tab PO TID 10/31/15 Reported Mucus And Cough Relief Tablet (Guaifenesin/Dextromethorphan) 1 Each Tablet 1 Each PO Q4-6HRS PRN 10/31/15 Reported Potassium Chloride 20 Meq Tab.er.prt 1 Tab PO BID 10/31/15 Reported Sucralfate 1 Gm Tablet 1 Tab PO QID 10/31/15 Reported Impression . [id number] AGREE WITH CURRENT RX AECOPD CM EF 25 SEE ORDERS THANKS ESCOBAR BALL MD Dec 27, 2016 17:53
[2016-12-27 19:42] VITALS: BP 117/88
[2016-12-27] MEDS: GUAIFENESIN ER 600 MG TABLET.ER PO PRN (20:38)
[2016-12-27] MEDS: GABAPENTIN 300 MG CAPSULE. PO SCH (20:39)
[2016-12-27] MEDS: ATORVASTATIN CALCIUM 40 MG TABLET. PO SCH (20:39)
[2016-12-27 22:39] VITALS: BP 140/77
[2016-12-28] VITALS (17 sets, daily range): BP systolic 102–157; BP diastolic 60–115
[2016-12-28 05:01] LABS: BASO % 0 % (0-3); EOS % 0 % (0-3); HEMATOCRIT 42.4 % (36.0-47.0); HEMOGLOBIN 13.3 g/dL (12.0-15.5); LYMPH # 0.4 x10^3/uL (1.0-4.8); LYMPH % 6 % (24-48); MEAN CORPUSCULAR HEMOGLOBIN 26 pg (25-35); MEAN CORPUSCULAR HGB CONC 31 g/dL (31-37); MEAN CORPUSCULAR VOLUME 84 fL (79-100); MONO % 20 % (0-9); NEUT % 74 % (31-73); PLATELET COUNT 144 x10^3/uL (140-400); RED BLOOD COUNT 5.05 x10^6/uL (3.50-5.40); RED CELL DISTRIBUTION WIDTH 16.5 % (11.5-14.5); WHITE BLOOD COUNT 5.8 x10^3/uL (4.0-11.0)
[2016-12-28] MEDS: IPRATRPIUM/ALBUTEROL 0.5/2.5MG 3 ML NEBU. NEB SCH ×3 (05:11→20:19)
[2016-12-28 05:29] LABS: CALCIUM 9.2 mg/dL (8.5-10.1); CREATININE 1.4 mg/dL (0.6-1.0); GFR 37.7; POTASSIUM 4.1 mmol/L (3.5-5.1)
[2016-12-28] MEDS: SUCRALFATE 1 GM TABLET. PO SCH ×5 (06:55→21:29)
[2016-12-28] MEDS ORDERED: FUROSEMIDE 40 MG/4 ML VIAL IVP ONE ×2 (07:00→09:00)
[2016-12-28] MEDS: ALBUTEROL SULFATE 2.5 MG/3 ML NEBU. NEB PRN ×2 (08:02→15:12)
[2016-12-28] MEDS ORDERED: methylPREDNISolone SOD SUCC PF 125 MG/2 ML VIAL. IV ONE (08:30)
[2016-12-28] MEDS: ALPRAZOLAM 0.5 MG TABLET PO SCH ×4 (08:39→21:30)
[2016-12-28 08:51] LABS: HCO3 ABG 38 mmol/L (21-28); PH ABG 7.26 (7.35-7.45); PO2 ABG 73 mmHg (65-108)
--- NOTE | 2016-12-28 08:58 | RAD ---
Portable chest, 12/28/2016: History: Respiratory distress Comparison is made to a study from 12/25/2016. The heart size and pulmonary vascularity are normal. There is calcific plaquing of the aorta. No pulmonary infiltrates are seen. There is no evidence of pleural fluid. A moderate amount of bowel gas is noted in the upper abdomen. IMPRESSION: No acute cardiopulmonary abnormality is detected.
[2016-12-28] MEDS: VERAPAMIL SR 180 MG TABLET.ER. PO SCH ×3 (09:00→21:31)
[2016-12-28] MEDS: FUROSEMIDE 80 MG TABLET PO SCH (09:00)
[2016-12-28] MEDS: DOCUSATE SODIUM 100 MG CAPSULE PO SCH ×2 (09:00→13:44)
[2016-12-28] MEDS: OMEGA-3 FATTY ACIDS/FISH OIL 1,000 MG CAPSULE. PO SCH ×2 (09:00→13:42)
[2016-12-28] MEDS: ISOSORBIDE MONONITRATE ER 60 MG TAB.ER.24H PO SCH ×2 (09:00→13:44)
[2016-12-28] MEDS: POTASSIUM CHLORIDE 20 MEQ TABLET.ER. PO SCH ×3 (09:00→21:30)
--- NOTE | 2016-12-28 09:02 | CONS ---
DATE OF CONSULTATION: 12/27/2016 ATTENDING PHYSICIAN: Dr. Mcdaniel. REASON FOR CONSULTATION: The patient is seen in pulmonary consultation at the request of Dr. Mcdaniel for shortness of air. HISTORY OF PRESENT ILLNESS: The patient is a 66-year-old female who presented with shortness of breath, started the evening prior to admission. She normally wears 2 liters of oxygen at home. She was found to have O2 saturations on 2 liters of 88%. She was given breathing treatments. She was still short of breath. She was admitted. She was also complaining of some chest discomfort. Cardiology has seen her. The patient underwent a cardiac catheterization today revealing mildly elevated left-sided filling pressures, ejection fraction of 25%. Three-vessel coronary artery disease. It was suspected that she had suspected takotsubo stress-induced cardiomyopathy. The patient feels better. She is still short of breath. She has a cough mostly nonproductive. No fever, chills or night sweats. PAST MEDICAL HISTORY: Chronic respiratory failure, on oxygen supplementation at 2 liters. She has had previous respiratory failure requiring mechanical ventilation. Depression, gastroesophageal, hypertension, coronary artery disease, Alzheimer dementia, and chronic back pain. PAST SURGICAL HISTORY: Cholecystectomy, hysterectomy, previous coronary artery stenting, previous knee surgery. ALLERGIES: No known drug allergies. CURRENT MEDICATIONS: List was reviewed. Please see the MRAD. ALLERGIES: No known drug allergies. REVIEW OF SYSTEMS: As indicated above, otherwise a 10-point system was reviewed and negative. GENERAL: No fever, chills, or night sweats. EYES: No change in visual acuity. HEENT: No nasal congestion, no sore throat. RESPIRATORY: As indicated above. CARDIOVASCULAR: Some tachycardia and chest discomfort. GASTROINTESTINAL: No nausea, vomiting, or diarrhea. GENITOURINARY: No dysuria or frequency. MUSCULOSKELETAL: No localized muscle aches or joint pains. SKIN: No new skin lesions. NEUROLOGIC: No headaches, diplopia or blurred vision. SOCIAL HISTORY: She continues to smoke on and off. PHYSICAL EXAMINATION: VITAL SIGNS: Stable. O2 saturation is greater than 92%, currently on 3 liters. HEENT: Eyes, the sclerae were nonicteric. NECK: Jugular venous distention was not elevated. No lymphadenopathy. CHEST: Full expansion. LUNGS: Poor airway flow with no wheezes. CARDIOVASCULAR: Regular rate and rhythm with S1, S2, no S3. ABDOMEN: Soft, nontender, nondistended. EXTREMITIES: No clubbing, cyanosis. Minimal edema. NEUROLOGIC: The patient was awake, alert, following commands. A detailed neuro exam was not performed. LABORATORY DATA: Reviewed. Chest x-ray revealed no new infiltrates. White count was normal. Hemoglobin and hematocrit noted. Electrolytes were noted. BUN and creatinine were normal. IMPRESSION: 1. Wmvoy-vk-dpcyeey hypoxemic respiratory failure. 2. Mild acute exacerbation of chronic obstructive pulmonary disease. 3. Non-ST segment elevation, status post previous percutaneous coronary with two stents. 4. Coronary artery disease as described above. 5. Chronic obstructive pulmonary disease. 6. Gastroesophageal reflux. 7. Dementia. 8. Electrolytes abnormalities. 9. Chronic diastolic heart failure. 10. Peripheral arterial disease. 11. Nonspecific anxiety. PLAN: 1. Respiratory ray, the patient appears to be compensated. I recommend continued prednisone 20 mg a day. 2. No antibiotics. 3. Nebulized treatments. 4. Oxygen supplementation. 5. Xanax p.r.n. for anxiety. 6. P.r.n. BiPAP. Dr. Mcdaniel, I do appreciate the privilege in sharing in the patient's care. ESCOBAR BALL MD DR: VLADISLAV/dawson JOB#: [id number] / [id number]
--- NOTE | 2016-12-28 09:41 | PDOC ---
PULMONARY PROGRESS NOTES Subjective PT ON BIPAP, FOLLOWS COMMANDS Vitals Vital Signs Date Time Temp Pulse Resp B/P Pulse Ox O2 Delivery O2 Flow Rate FiO2 12/28/16 08:04 Nasal Cannula 5.0 12/28/16 07:00 98.4 95 28 149/71 84 98.4 ROS: No Nausea, No Chest Pain, No Abdominal Pain, No Increase Cough General: Alert Lungs: Other (BL DECREASED BS) Cardiovascular: S1, S2 Abdomen: Soft, Non-tender Neuro Exam: Alert Extremities: No Edema, Other Skin: Warm Labs Laboratory Tests Test 12/27/16 05:44 12/27/16 08:10 12/28/16 03:10 12/28/16 03:40 White Blood Count 4.1x10^3/uL (4.0-11.0) 5.8x10^3/uL (4.0-11.0) Red Blood Count 4.98x10^6/uL (3.50-5.40) 5.05x10^6/uL (3.50-5.40) Hemoglobin 13.2g/dL (12.0-15.5) 13.3g/dL (12.0-15.5) Hematocrit 41.4% (36.0-47.0) 42.4% (36.0-47.0) Mean Corpuscular Volume 83fL (79-100) 84fL (79-100) Mean Corpuscular Hemoglobin 27pg (25-35) 26pg (25-35) Mean Corpuscular Hemoglobin Concent 32g/dL (31-37) 31g/dL (31-37) Red Cell Distribution Width 16.5% (11.5-14.5) 16.5% (11.5-14.5) Platelet Count 144x10^3/uL (140-400) 144x10^3/uL (140-400) Neutrophils (%) (Auto) 67% (31-73) 74% (31-73) Lymphocytes (%) (Auto) 10% (24-48) 6% (24-48) Monocytes (%) (Auto) 22% (0-9) 20% (0-9) Eosinophils (%) (Auto) 0% (0-3) 0% (0-3) Basophils (%) (Auto) 0% (0-3) 0% (0-3) Neutrophils # (Auto) 2.8x10^3uL (1.8-7.7) 4.3x10^3uL (1.8-7.7) Lymphocytes # (Auto) 0.4x10^3/uL (1.0-4.8) 0.4x10^3/uL (1.0-4.8) Monocytes # (Auto) 0.9x10^3/uL (0.0-1.1) 1.1x10^3/uL (0.0-1.1) Eosinophils # (Auto) 0.0x10^3/uL (0.0-0.7) 0.0x10^3/uL (0.0-0.7) Basophils # (Auto) 0.0x10^3/uL (0.0-0.2) 0.0x10^3/uL (0.0-0.2) Segmented Neutrophils % 53% (35-66) Band Neutrophils % 16% (0-9) Lymphocytes % 11% (24-48) Monocytes % 20% (0-10) Platelet Estimate Adequate (ADEQUATE) Anisocytosis Slight Ovalocytes Present [place] Cells Few Magnesium Level 2.1mg/dL (1.8-2.4) Sodium Level 143mmol/L (136-145) 143mmol/L (136-145) Potassium Level 3.8mmol/L (3.5-5.1) 4.1mmol/L (3.5-5.1) Chloride Level 98mmol/L (98-107) 100mmol/L (98-107) Carbon Dioxide Level 36mmol/L (21-32) 37mmol/L (21-32) Anion Gap 9 (6-14) 6 (6-14) Blood Urea Nitrogen 18mg/dL (7-20) 34mg/dL (7-20) Creatinine 0.9mg/dL (0.6-1.0) 1.4mg/dL (0.6-1.0) Estimated GFR (Cockcroft-Gault) 62.8 37.7 Glucose Level 119mg/dL (70-99) 107mg/dL (70-99) Calcium Level 9.1mg/dL (8.5-10.1) 9.2mg/dL (8.5-10.1) BX-Enp-F-Type Natriuretic Peptide 4846pg/mL (0-124) Laboratory Tests Test 12/28/16 03:10 12/28/16 03:40 Sodium Level 143mmol/L (136-145) Potassium Level 4.1mmol/L (3.5-5.1) Chloride Level 100mmol/L (98-107) Carbon Dioxide Level 37mmol/L (21-32) Anion Gap 6 (6-14) Blood Urea Nitrogen 34mg/dL (7-20) Creatinine 1.4mg/dL (0.6-1.0) Estimated GFR (Cockcroft-Gault) 37.7 Glucose Level 107mg/dL (70-99) Calcium Level 9.2mg/dL (8.5-10.1) LA-Deo-G-Type Natriuretic Peptide 4846pg/mL (0-124) White Blood Count 5.8x10^3/uL (4.0-11.0) Red Blood Count 5.05x10^6/uL (3.50-5.40) Hemoglobin 13.3g/dL (12.0-15.5) Hematocrit 42.4% (36.0-47.0) Mean Corpuscular Volume 84fL (79-100) Mean Corpuscular Hemoglobin 26pg (25-35) Mean Corpuscular Hemoglobin Concent 31g/dL (31-37) Red Cell Distribution Width 16.5% (11.5-14.5) Platelet Count 144x10^3/uL (140-400) Neutrophils (%) (Auto) 74% (31-73) Lymphocytes (%) (Auto) 6% (24-48) Monocytes (%) (Auto) 20% (0-9) Eosinophils (%) (Auto) 0% (0-3) Basophils (%) (Auto) 0% (0-3) Neutrophils # (Auto) 4.3x10^3uL (1.8-7.7) Lymphocytes # (Auto) 0.4x10^3/uL (1.0-4.8) Monocytes # (Auto) 1.1x10^3/uL (0.0-1.1) Eosinophils # (Auto) 0.0x10^3/uL (0.0-0.7) Basophils # (Auto) 0.0x10^3/uL (0.0-0.2) Medications Active Scripts Medications Dose Route/Sig Days Date Category Prednisone 10 Mg Tablet 10 Mg PO DAILY 09/13/16 Reported Proair Hfa Inhaler (Albuterol Sulfate) 8.5 Gm Hfa.aer.ad 1 Puff INH PRN Q6HRS PRN 08/01/16 Reported Hydrocodone-Apap 10-325 (Hydrocodone Bit/Acetaminophen) 1 Each Tablet 1 Tab PO Q8HRS PRN 07/19/16 Rx Zolpidem Tartrate 10 Mg Tablet 1 Tab PO QHS 10/31/15 Reported Verapamil Er (Verapamil Hcl) 180 Mg Tablet.er 180 Mg PO DAILY 10/31/15 Reported Pantoprazole Sodium 40 Mg Tablet.dr 1 Tab PO DAILY 10/31/15 Reported [place] 3 Fish Oil Softgel ([place]-3 Fatty Acids/Fish Oil) 1 Each Capsule.dr 1 Each PO DAILY 10/31/15 Reported Multi-Vitamin Daily (Multivitamin) 1 Each Tablet 1 Each PO 10/31/15 Reported Isosorbide Mononitrate Er (Isosorbide Mononitrate) 60 Mg Tab.er.24h 1.5 Tab PO DAILY 10/31/15 Reported Gabapentin Oral Solution (Gabapentin) 300 Mg/6 Ml Solution 300 Mg PO HS 10/31/15 Reported Furosemide 80 Mg Tablet 1 Tab PO DAILY 10/31/15 Reported Colace (Docusate Sodium) 100 Mg Capsule 1 Cap PO DAILY 10/31/15 Reported Cyclobenzaprine Hcl 10 Mg Tablet 1 Tab PO QHS PRN 10/31/15 Reported Atorvastatin Calcium 80 Mg Tablet 1 Tab PO HS PRN 10/31/15 Reported Aspirin 325 Mg Tablet 1 Tab PO DAILY 10/31/15 Reported Xanax (Alprazolam) 1 Mg Tablet 1 Tab PO TID 10/31/15 Reported Mucus And Cough Relief Tablet (Guaifenesin/Dextromethorphan) 1 Each Tablet 1 Each PO Q4-6HRS PRN 10/31/15 Reported Potassium Chloride 20 Meq Tab.er.prt 1 Tab PO BID 10/31/15 Reported Sucralfate 1 Gm Tablet 1 Tab PO QID 10/31/15 Reported Impression . 1. Txsis-xy-nbikyyn hypoxemic respiratory failure. 2. Mild acute exacerbation of chronic obstructive pulmonary disease. 3. Non-ST segment elevation, status post previous percutaneous coronary with two stents. 4. Coronary artery disease as described above. 5. Chronic obstructive pulmonary disease. 6. Gastroesophageal reflux. 7. Dementia. 8. Electrolytes abnormalities. 9. Chronic diastolic heart failure. 10. Peripheral arterial disease. 11. Nonspecific anxiety. Plan . PT MOVE TO ICU ABG NOTED BECAME HYPERCAPNIC NOW BETTER WILL TRY N/C SPOKE WITH RT CONTINUE SAME START DIET ARTERIAL STUDY BELOW PER PCP ARTERIAL STUDY There is multifocal plaque seen throughout the vasculature of the bilateral legs. In addition there are monophasic waveforms seen bilaterally which can be seen with hemodynamically significant regions of narrowing. The bilateral peroneal arteries are not visualized therefore occlusion not excluded. Soft tissue edema is visualized ESCOBAR BALL MD Dec 28, 2016 09:41
--- NOTE | 2016-12-28 10:03 | PDOC ---
CARDIO Progress Notes Date and Time Date of Service 12/28/2016 Time of Evaluation 0915 Subjective Subjective: Other (nods head; pulling off bi-pap) Vitals Vitals Vital Signs Date Time Temp Pulse Resp B/P Pulse Ox O2 Delivery O2 Flow Rate FiO2 12/28/16 08:04 Nasal Cannula 5.0 12/28/16 07:00 98.4 95 28 149/71 84 98.4 Weight Weight [ ] Input and Output Intake and Output Intake and Output 12/28/16 07:00 Intake Total 480 ml Output Total 100 ml Balance 380 ml Intake Oral 480 ml Output Urine Total 100 ml Laboratory Labs Laboratory Tests Test 12/28/16 03:10 12/28/16 03:40 Sodium Level 143mmol/L (136-145) Potassium Level 4.1mmol/L (3.5-5.1) Chloride Level 100mmol/L (98-107) Carbon Dioxide Level 37mmol/L (21-32) Anion Gap 6 (6-14) Blood Urea Nitrogen 34mg/dL (7-20) Creatinine 1.4mg/dL (0.6-1.0) Estimated GFR (Cockcroft-Gault) 37.7 Glucose Level 107mg/dL (70-99) Calcium Level 9.2mg/dL (8.5-10.1) ZX-Dmf-U-Type Natriuretic Peptide 4846pg/mL (0-124) White Blood Count 5.8x10^3/uL (4.0-11.0) Red Blood Count 5.05x10^6/uL (3.50-5.40) Hemoglobin 13.3g/dL (12.0-15.5) Hematocrit 42.4% (36.0-47.0) Mean Corpuscular Volume 84fL (79-100) Mean Corpuscular Hemoglobin 26pg (25-35) Mean Corpuscular Hemoglobin Concent 31g/dL (31-37) Red Cell Distribution Width 16.5% (11.5-14.5) Platelet Count 144x10^3/uL (140-400) Neutrophils (%) (Auto) 74% (31-73) Lymphocytes (%) (Auto) 6% (24-48) Monocytes (%) (Auto) 20% (0-9) Eosinophils (%) (Auto) 0% (0-3) Basophils (%) (Auto) 0% (0-3) Neutrophils # (Auto) 4.3x10^3uL (1.8-7.7) Lymphocytes # (Auto) 0.4x10^3/uL (1.0-4.8) Monocytes # (Auto) 1.1x10^3/uL (0.0-1.1) Eosinophils # (Auto) 0.0x10^3/uL (0.0-0.7) Basophils # (Auto) 0.0x10^3/uL (0.0-0.2) Physical Exam HEENT: Neck Supple W Full Motion Chest: Symmetric LUNGS: Other (basilar crackles anteriorly; coarse) Heart: S1S2, RRR, murmurs, other (tele: SR/ST with PAF) Abdomen: Soft N/T Extremities: No Edema Neurology: alert, other (anxious ) Assessment Assessment 1. acute on chronic systolic heart failure depressed LV function @ 25% by cath; 12/26/2016 NT-proBNP 4846 this a.m. has been given IV furosemide 40 mg X 1 @ 0649 and then again at 0852; re- evaluate output tomorrow and consider IV bumex instead of furosemide ? accuracy of I & O and weights 2. acute on chronic respiratory failure currently on bi-pap and non-compliant with use 3. non-ischemic cardiomyopathy ? Takotsubo's continue diuretics no BB due to wheezing ? ACEI vs Entresto 4. NSTEMI troponin peaked @ 8.42 non-obstructive disease on cath patent LM to Lt circ, LAD and RCA stents 4. atrial dysrythmias SVT previously treated with adenosine PAF - now on dig and verapamil BID for rate control; consider use of sotalol as anti-arrhythmic if freq recurrence 5. HTN controlled with multiple medications 6. Hyperlipidemia LDLs = 75 on statin therapy 7. RILEY CUMMINGS ELIGIBILITY ANALYST Dec 28, 2016 10:03
[2016-12-28 10:55] LABS: FIO2 ABG 40; PCO2 ABG 87 mmHg (35-46)
[2016-12-28 11:46] LABS: HCO3 ABG 32 mmol/L (21-28); PCO2 ABG 54 mmHg (35-46); PH ABG 7.39 (7.35-7.45); PO2 ABG 79 mmHg (65-108); SAT O2 ABG 95 % (92-99)
[2016-12-28 11:48] LABS: FIO2 ABG 40
[2016-12-28] MEDS: CLOPIDOGREL BISULFATE 75 MG TABLET PO SCH ×2 (12:30→13:42)
[2016-12-28] MEDS: PREDNISONE 10 MG TABLET PO SCH (13:42)
[2016-12-28] MEDS: DIGOXIN 125 MCG TABLET PO SCH (13:43)
[2016-12-28] MEDS: PANTOPRAZOLE 40 MG TABLET. PO SCH (13:46)
[2016-12-28] MEDS ORDERED: DIGOXIN 500 MCG/2 ML AMPUL. IV ONE (14:30)
--- NOTE | 2016-12-28 14:53 | PDOC ---
PROGRESS NOTES Chief Complaint Chief Complaint 1. ACUTE on chronic hypoxic resp failure with COPD 2. NSTEMI s/p PCI with 2 stents 3. COPD 4. H/O CAD 5. htn 6.hld 7. GERD 8. DEmentia, mild 9. chronic back and knee pain 10. hypokalemia 11. hyomagnesemia 12. thrombocytopenia 13. rapid afib 14. CHF diastolic , stable 15. SVT POST cath 16. PAD 17 rapid afib PLAN: .1. fu with card. post Cath , fu pulm 2. cont home meds 3. off cardizem, on dig and verapimil. ON ASA, plavix, lipitor 4.transfer to ICU ON 12/28 WITH RESP FAIlure, need bipap. add solumedrol, levaquin, on duoneb change some meds to iv since cannot eat dig iv now, will give cardizem if need gi ppx replete K History of Present Illness History of Present Illness post cath on 12/26, 2 stents SVT at night, got adenosine 2 times, then dig sob, home o2 2.5L, now 3 very sob on 12/28 am, desat, got ABG, CXR, lasix iv ,PCO2 86 TRANSFER TO icu rapid afib Vitals Vitals Vital Signs Date Time Temp Pulse Resp B/P Pulse Ox O2 Delivery O2 Flow Rate FiO2 12/28/16 14:36 156 118/87 12/28/16 12:05 BiPAP/CPAP 12/28/16 12:00 98.7 26 96 98.7 12/28/16 09:10 5.0 Physical Exam General: Alert, Oriented X3, Cooperative, No acute distress Heart: Regular rate, Normal S1, Normal S2, Other (2/6 systolic murmur, distant heart tones) Lungs: Other (bl rhonchis) Abdomen: Soft Extremities: Other (right foot mottling, bilateral posterior tibial and left DP pulses detected by doppler. unable to detect right DP pulse, 1+ bilateral LE edema. chronic venous stasis changes bi LE) Skin: No significant lesion Labs LABS Laboratory Tests Test 12/28/16 03:10 12/28/16 03:40 12/28/16 08:34 12/28/16 10:45 Sodium Level 143mmol/L (136-145) Potassium Level 4.1mmol/L (3.5-5.1) Chloride Level 100mmol/L (98-107) Carbon Dioxide Level 37mmol/L (21-32) Anion Gap 6 (6-14) Blood Urea Nitrogen 34mg/dL (7-20) Creatinine 1.4mg/dL (0.6-1.0) Estimated GFR (Cockcroft-Gault) 37.7 Glucose Level 107mg/dL (70-99) Calcium Level 9.2mg/dL (8.5-10.1) UF-Lnt-S-Type Natriuretic Peptide 4846pg/mL (0-124) White Blood Count 5.8x10^3/uL (4.0-11.0) Red Blood Count 5.05x10^6/uL (3.50-5.40) Hemoglobin 13.3g/dL (12.0-15.5) Hematocrit 42.4% (36.0-47.0) Mean Corpuscular Volume 84fL (79-100) Mean Corpuscular Hemoglobin 26pg (25-35) Mean Corpuscular Hemoglobin Concent 31g/dL (31-37) Red Cell Distribution Width 16.5% (11.5-14.5) Platelet Count 144x10^3/uL (140-400) Neutrophils (%) (Auto) 74% (31-73) Lymphocytes (%) (Auto) 6% (24-48) Monocytes (%) (Auto) 20% (0-9) Eosinophils (%) (Auto) 0% (0-3) Basophils (%) (Auto) 0% (0-3) Neutrophils # (Auto) 4.3x10^3uL (1.8-7.7) Lymphocytes # (Auto) 0.4x10^3/uL (1.0-4.8) Monocytes # (Auto) 1.1x10^3/uL (0.0-1.1) Eosinophils # (Auto) 0.0x10^3/uL (0.0-0.7) Basophils # (Auto) 0.0x10^3/uL (0.0-0.2) Arterial Blood pH 7.26 (7.35-7.45) 7.39 (7.35-7.45) Arterial Blood pCO2 at Patient Temp 87mmHg (35-46) 54mmHg (35-46) Arterial Blood pO2 at Patient Temp 73mmHg (65-108) 79mmHg (65-108) Arterial Blood HCO3 38mmol/L (21-28) 32mmol/L (21-28) Arterial Blood Base Excess 7mmol/L (-3-3) 6mmol/L (-3-3) FiO2 40 40 O2 Saturation 95% (92-99) Review of Systems Review of Systems no fever, chills, chest pain Assessment and Plan Assessmemt and Plan Problems Medical Problems: (1) Atrial fibrillation with RVR Status: Acute (2) Cardiac ischemia Status: Acute (3) COPD exacerbation Status: Acute Problems: Comment Review of Relevant I have reviewed the following items claudia (where applicable) has been applied. Labs Laboratory Tests Test 12/27/16 05:44 12/27/16 08:10 12/28/16 03:10 12/28/16 03:40 White Blood Count 4.1x10^3/uL (4.0-11.0) 5.8x10^3/uL (4.0-11.0) Red Blood Count 4.98x10^6/uL (3.50-5.40) 5.05x10^6/uL (3.50-5.40) Hemoglobin 13.2g/dL (12.0-15.5) 13.3g/dL (12.0-15.5) Hematocrit 41.4% (36.0-47.0) 42.4% (36.0-47.0) Mean Corpuscular Volume 83fL (79-100) 84fL (79-100) Mean Corpuscular Hemoglobin 27pg (25-35) 26pg (25-35) Mean Corpuscular Hemoglobin Concent 32g/dL (31-37) 31g/dL (31-37) Red Cell Distribution Width 16.5% (11.5-14.5) 16.5% (11.5-14.5) Platelet Count 144x10^3/uL (140-400) 144x10^3/uL (140-400) Neutrophils (%) (Auto) 67% (31-73) 74% (31-73) Lymphocytes (%) (Auto) 10% (24-48) 6% (24-48) Monocytes (%) (Auto) 22% (0-9) 20% (0-9) Eosinophils (%) (Auto) 0% (0-3) 0% (0-3) Basophils (%) (Auto) 0% (0-3) 0% (0-3) Neutrophils # (Auto) 2.8x10^3uL (1.8-7.7) 4.3x10^3uL (1.8-7.7) Lymphocytes # (Auto) 0.4x10^3/uL (1.0-4.8) 0.4x10^3/uL (1.0-4.8) Monocytes # (Auto) 0.9x10^3/uL (0.0-1.1) 1.1x10^3/uL (0.0-1.1) Eosinophils # (Auto) 0.0x10^3/uL (0.0-0.7) 0.0x10^3/uL (0.0-0.7) Basophils # (Auto) 0.0x10^3/uL (0.0-0.2) 0.0x10^3/uL (0.0-0.2) Segmented Neutrophils % 53% (35-66) Band Neutrophils % 16% (0-9) Lymphocytes % 11% (24-48) Monocytes % 20% (0-10) Platelet Estimate Adequate (ADEQUATE) Anisocytosis Slight Ovalocytes Present Sherry Cells Few Magnesium Level 2.1mg/dL (1.8-2.4) Sodium Level 143mmol/L (136-145) 143mmol/L (136-145) Potassium Level 3.8mmol/L (3.5-5.1) 4.1mmol/L (3.5-5.1) Chloride Level 98mmol/L (98-107) 100mmol/L (98-107) Carbon Dioxide Level 36mmol/L (21-32) 37mmol/L (21-32) Anion Gap 9 (6-14) 6 (6-14) Blood Urea Nitrogen 18mg/dL (7-20) 34mg/dL (7-20) Creatinine 0.9mg/dL (0.6-1.0) 1.4mg/dL (0.6-1.0) Estimated GFR (Cockcroft-Gault) 62.8 37.7 Glucose Level 119mg/dL (70-99) 107mg/dL (70-99) Calcium Level 9.1mg/dL (8.5-10.1) 9.2mg/dL (8.5-10.1) SQ-Ngf-K-Type Natriuretic Peptide 4846pg/mL (0-124) Test 12/28/16 08:34 12/28/16 10:45 Arterial Blood pH 7.26 (7.35-7.45) 7.39 (7.35-7.45) Arterial Blood pCO2 at Patient Temp 87mmHg (35-46) 54mmHg (35-46) Arterial Blood pO2 at Patient Temp 73mmHg (65-108) 79mmHg (65-108) Arterial Blood HCO3 38mmol/L (21-28) 32mmol/L (21-28) Arterial Blood Base Excess 7mmol/L (-3-3) 6mmol/L (-3-3) FiO2 40 40 O2 Saturation 95% (92-99) Laboratory Tests Test 12/28/16 03:10 12/28/16 03:40 12/28/16 08:34 12/28/16 10:45 Sodium Level 143mmol/L (136-145) Potassium Level 4.1mmol/L (3.5-5.1) Chloride Level 100mmol/L (98-107) Carbon Dioxide Level 37mmol/L (21-32) Anion Gap 6 (6-14) Blood Urea Nitrogen 34mg/dL (7-20) Creatinine 1.4mg/dL (0.6-1.0) Estimated GFR (Cockcroft-Gault) 37.7 Glucose Level 107mg/dL (70-99) Calcium Level 9.2mg/dL (8.5-10.1) CA-Jok-Q-Type Natriuretic Peptide 4846pg/mL (0-124) White Blood Count 5.8x10^3/uL (4.0-11.0) Red Blood Count 5.05x10^6/uL (3.50-5.40) Hemoglobin 13.3g/dL (12.0-15.5) Hematocrit 42.4% (36.0-47.0) Mean Corpuscular Volume 84fL (79-100) Mean Corpuscular Hemoglobin 26pg (25-35) Mean Corpuscular Hemoglobin Concent 31g/dL (31-37) Red Cell Distribution Width 16.5% (11.5-14.5) Platelet Count 144x10^3/uL (140-400) Neutrophils (%) (Auto) 74% (31-73) Lymphocytes (%) (Auto) 6% (24-48) Monocytes (%) (Auto) 20% (0-9) Eosinophils (%) (Auto) 0% (0-3) Basophils (%) (Auto) 0% (0-3) Neutrophils # (Auto) 4.3x10^3uL (1.8-7.7) Lymphocytes # (Auto) 0.4x10^3/uL (1.0-4.8) Monocytes # (Auto) 1.1x10^3/uL (0.0-1.1) Eosinophils # (Auto) 0.0x10^3/uL (0.0-0.7) Basophils # (Auto) 0.0x10^3/uL (0.0-0.2) Arterial Blood pH 7.26 (7.35-7.45) 7.39 (7.35-7.45) Arterial Blood pCO2 at Patient Temp 87mmHg (35-46) 54mmHg (35-46) Arterial Blood pO2 at Patient Temp 73mmHg (65-108) 79mmHg (65-108) Arterial Blood HCO3 38mmol/L (21-28) 32mmol/L (21-28) Arterial Blood Base Excess 7mmol/L (-3-3) 6mmol/L (-3-3) FiO2 40 40 O2 Saturation 95% (92-99) Medications Current Medications Albuterol/ Ipratropium 3 ml 3 ml 1X ONCE NEB Last administered on 12/25/16 05 :49; Start 12/25/16 at 05:30; Stop 12/25/16 at 05:31; Status DC Sodium Chloride (Iv Sodium Chloride 0.9% 500ml Bag) 500 ml @ 500 mls/hr 1X ONCE IV Last administered on 12/25/16 06:09; Start 12/25/16 at 06:15; Stop at 07:14; Status DC Diltiazem HCl 20 mg 20 mg 1X ONCE IVP Last administered on 12/25/16 06:30; Start 12/25/16 at 06:30; Stop 12/25/16 at 15:01; Status DC Diltiazem HCl/ Dextrose (Cardizem) 125 ml @ 10 mls/hr 1X ONCE IV Last administered on 12/25/16 06:30; Start 12/25/16 at 06:30; Stop 12/25/16 at 15:01 ; Status DC Albuterol/ Ipratropium (Duoneb) 3 ml QID NEB Last administered on 12/25/16 13: 05; Start 12/25/16 at 13:30; Stop 12/25/16 at 14:46; Status DC Aspirin (Dutch Aspirin) 325 mg DAILY PO Last administered on 12/27/16 07:56; Start 12/25/16 at 15:30; Stop 12/28/16 at 12:29; Status DC Furosemide (Lasix) 80 mg DAILY PO Last administered on 12/27/16 07:56; Start 12/25/16 at 15:30 Isosorbide Mononitrate (Imdur) 60 mg DAILY PO Last administered on 12/27/16 08 :00; Start 12/25/16 at 15:30 Pantoprazole Sodium (Protonix) 40 mg DAILY PO Last administered on 12/27/16 07 :56; Start 12/25/16 at 15:30 Potassium Chloride (Klor-Con) 20 meq BID PO Last administered on 12/27/16 20: 39; Start 12/25/16 at 21:00 Atorvastatin Calcium (Lipitor) 80 mg QHS PO Last administered on 12/27/16 20: 39; Start 12/25/16 at 21:00 Potassium Chloride (Klor-Con) 40 meq 1X ONCE PO Last administered on 15:49; Start 12/25/16 at 15:00; Stop 12/25/16 at 15:01; Status DC Albuterol/ Ipratropium 3 ml 3 ml RTQID NEB Last administered on 12/26/16 12:27 ; Start 12/25/16 at 16:00; Stop 12/26/16 at 15:35; Status DC Heparin Sodium/ Dextrose 500 ml @ 0 mls/hr CONT PRN IV SEE I/O RECORD Last administered on 12/25/16 16:00; Start 12/25/16 at 15:00; Stop 12/27/16 at 16:54 ; Status DC Heparin Sodium (Porcine) 1,900 unit PRN Q6HRS PRN IV FOR UFH LEVEL LESS THAN 0.2; Start 12/25/16 at 15:00; Stop 12/27/16 at 16:54; Status DC Diltiazem HCl (Cardizem 24hr Cd) 180 mg DAILY PO Last administered on 08:30; Start 12/25/16 at 15:30; Stop 12/26/16 at 13:17; Status DC Info 1 each 1 each PRN DAILY PRN MC SEE COMMENTS Last administered on 13:01; Start 12/25/16 at 15:15; Stop 12/28/16 at 12:31; Status DC Magnesium Sulfate/ Dextrose (Magnesium Sulfate PREMIX 2GM) 50 ml @ 25 mls/hr 1X ONCE IV Last administered on 12/25/16 17:38; Start 12/25/16 at 17:30; Stop 12/25/16 at 19:29; Status DC Albuterol Sulfate (Ventolin Neb Soln) 2.5 mg PRN Q4HRS PRN NEB SHORTNESS OF BREATH Last administered on 12/28/16 08:02; Start 12/25/16 at 17:15 Lorazepam (Ativan) 0.5 mg PRN Q8HRS PRN PO ANXIETY / AGITATION Last administered on 12/26/16 02:45; Start 12/25/16 at 17:15 Potassium Chloride 40 meq 40 meq 1X ONCE PO Last administered on 12/26/16 06: 34; Start 12/26/16 at 06:00; Stop 12/26/16 at 06:01; Status DC Potassium Chloride (KCl Premix 10meq) 100 ml @ 100 mls/hr Q1H IV Last administered on 12/26/16 15:29; Start 12/26/16 at 06:00; Stop 12/26/16 at 09:59 ; Status DC Hydralazine HCl (Apresoline) 10 mg PRN Q4HRS PRN IVP ELEVATED BP, SEE COMMENTS Last administered on 12/26/16 11:08; Start 12/26/16 at 08:45 Alprazolam (Xanax) 0.5 mg TID PO Last administered on 12/28/16 08:39; Start at 10:00 Cyclobenzaprine HCl (Flexeril) 10 mg PRN QHS PRN PO MUSCLE SPASMS Last administered on 12/27/16 13:21; Start 12/26/16 at 09:30 Docusate Sodium (Colace) 100 mg DAILY PO Last administered on 12/27/16 07:56; Start 12/26/16 at 10:00 Acetaminophen/ Hydrocodone Bitart (Lortab 10/325) 1 tab PRN Q8HRS PRN PO PAIN Last administered on 12/27/16 16:01; Start 12/26/16 at 09:30 Prednisone (Prednisone) 10 mg DAILY PO Last administered on 12/27/16 07:56; Start 12/26/16 at 10:00 Verapamil HCl (Calan Sr) 180 mg DAILY PO Last administered on 12/26/16 10:12; Start 12/26/16 at 10:00; Stop 12/26/16 at 13:17; Status DC Gabapentin (Neurontin) 300 mg QHS PO Last administered on 12/27/16 20:39; Start 12/26/16 at 21:00 Guaifenesin (Mucinex) 600 mg PRN BID PRN PO CONGESTION Last administered on 20:38; Start 12/26/16 at 21:00 Fish Oil (Fish Oil) 1,000 mg DAILY PO Last administered on 12/27/16 07:57; Start 12/26/16 at 10:00 Sucralfate (Carafate) 1 gm QID PO Last administered on 12/28/16 06:55; Start 12/26/16 at 13:00 Albuterol Sulfate (Ventolin Neb Soln) 2.5 mg PRN Q4HRS PRN NEB SHORTNESS OF BREATH; Start 12/26/16 at 09:30; Status Cancel Iohexol 100 ml 100 ml STK-MED ONCE .ROUTE ; Start 12/26/16 at 10:51; Stop at 10:52; Status DC Heparin Sodium/ Sodium Chloride 1,000 ml @ As Directed STK-MED ONCE .ROUTE ; Start 12/26/16 at 10:51; Stop 12/26/16 at 10:52; Status DC Lidocaine HCl 20 ml STK-MED ONCE .ROUTE ; Start 12/26/16 at 10:52; Stop at 10:53; Status DC Nitroglycerin (Nitroglycerin) 200 mcg STK-MED ONCE .ROUTE ; Start 12/26/16 at 11 :19; Stop 12/26/16 at 11:20; Status DC Verapamil HCl (Verapamil) 5 mg STK-MED ONCE .ROUTE ; Start 12/26/16 at 11:19; Stop 12/26/16 at 11:20; Status DC Heparin Sodium (Porcine) 10,000 unit STK-MED ONCE .ROUTE ; Start 12/26/16 at 11: 19; Stop 12/26/16 at 11:20; Status DC Fentanyl Citrate (Fentanyl 2ml Vial) 100 mcg STK-MED ONCE .ROUTE ; Start at 11:19; Stop 12/26/16 at 11:20; Status DC Midazolam HCl (Versed) 5 mg STK-MED ONCE .ROUTE ; Start 12/26/16 at 11:19; Stop 12/26/16 at 11:20; Status DC Nitroglycerin (Nitroglycerin) 200 mcg 1X ONCE IART Last administered on 11:30; Start 12/26/16 at 11:30; Stop 12/26/16 at 11:38; Status DC Verapamil HCl (Verapamil) 2.5 mg 1X ONCE IART Last administered on 12/26/16 11:30; Start 12/26/16 at 11:30; Stop 12/26/16 at 11:38; Status DC Heparin Sodium (Porcine) 2,500 unit 1X ONCE IART Last administered on 11:55; Start 12/26/16 at 11:30; Stop 12/26/16 at 11:38; Status DC Heparin Sodium/ Sodium Chloride 1,000 unit 1X ONCE IART Last administered on 11:54; Start 12/26/16 at 11:30; Stop 12/26/16 at 11:38; Status DC Midazolam HCl (Versed) 5 mg 1X ONCE IV Last administered on 12/26/16 11:52; Start 12/26/16 at 11:30; Stop 12/26/16 at 11:38; Status DC Fentanyl Citrate (Fentanyl 2ml Vial) 100 mcg 1X ONCE IV Last administered on 11:53; Start 12/26/16 at 11:30; Stop 12/26/16 at 11:38; Status DC Iohexol (Omnipaque 300 Mg/ml) 100 ml 1X ONCE IART Last administered on 11:53; Start 12/26/16 at 11:30; Stop 12/26/16 at 11:38; Status DC Lidocaine HCl 20 ml 1X ONCE IJ Last administered on 12/26/16 11:52; Start at 11:30; Stop 12/26/16 at 11:38; Status DC Clopidogrel Bisulfate (Plavix) 75 mg STK-MED ONCE .ROUTE ; Start 12/26/16 at 12: 00; Stop 12/26/16 at 12:01; Status DC Clopidogrel Bisulfate (Plavix) 600 mg 1X ONCE PO Last administered on 12:03; Start 12/26/16 at 12:15; Stop 12/26/16 at 12:16; Status DC Digoxin (Lanoxin) 500 mcg 1X ONCE IV Last administered on 12/26/16 13:14; Start 12/26/16 at 13:15; Stop 12/26/16 at 13:16; Status DC Adenosine (Adenocard) 12 mg 1X ONCE IV Last administered on 12/26/16 13:08; Start 12/26/16 at 13:00; Stop 12/26/16 at 13:01; Status DC Verapamil HCl 180 mg 180 mg BID PO Last administered on 12/27/16 20:39; Start 12/26/16 at 21:00 Magnesium Sulfate/ Dextrose (Magnesium Sulfate PREMIX 2GM) 50 ml @ 25 mls/hr STAT ONCE IV Last administered on 12/26/16 13:55; Start 12/26/16 at 13:15; Stop 12/26/16 at 15:14; Status DC Ipratropium Renner (Atrovent) 0.5 mg RTQID NEB Last administered on 12/27/16 11:40; Start 12/26/16 at 16:00; Stop 12/27/16 at 11:50; Status DC Digoxin (Lanoxin) 125 mcg DAILY PO Last administered on 12/27/16 13:22; Start 12/27/16 at 12:00; Stop 12/28/16 at 14:27; Status DC Albuterol/ Ipratropium (Duoneb) 3 ml RTQID NEB Last administered on 12/28/16 05:11; Start 12/27/16 at 12:00 Furosemide (Lasix) 40 mg 1X ONCE IVP Last administered on 12/28/16 06:49; Start 12/28/16 at 07:00; Stop 12/28/16 at 07:01; Status DC Methylprednisolone Sodium Succinate (Solu-Medrol 125mg Vial) 125 mg 1X ONCE IV Last administered on 12/28/16 08:39; Start 12/28/16 at 08:30; Stop 12/28/16 at 08:31; Status DC Furosemide (Lasix) 40 mg 1X ONCE IVP Last administered on 12/28/16 08:52; Start 12/28/16 at 09:00; Stop 12/28/16 at 09:01; Status DC Aspirin (Children'S Aspirin) 81 mg DAILYWBKFT PO ; Start 12/29/16 at 08:00 Clopidogrel Bisulfate (Plavix) 75 mg DAILYWBKFT PO ; Start 12/28/16 at 12:30 Digoxin (Lanoxin) 125 mcg DAILY IV ; Start 12/29/16 at 09:00 Digoxin (Lanoxin) 125 mcg 1X ONCE IV Last administered on 12/28/16 14:36; Start 12/28/16 at 14:30; Stop 12/28/16 at 14:31; Status DC Active Scripts Active Hydrocodone-Apap 10-325 (Hydrocodone Bit/Acetaminophen) 1 Each Tablet 1 Tab PO Q8HRS PRN Reported Prednisone 10 Mg Tablet 10 Mg PO DAILY Proair Hfa Inhaler (Albuterol Sulfate) 8.5 Gm Hfa.aer.ad 1 Puff INH PRN Q6HRS PRN Zolpidem Tartrate 10 Mg Tablet 1 Tab PO QHS Verapamil Er (Verapamil Hcl) 180 Mg Tablet.er 180 Mg PO DAILY Pantoprazole Sodium 40 Mg Tablet.dr 1 Tab PO DAILY Galva 3 Fish Oil Softgel (Galva-3 Fatty Acids/Fish Oil) 1 Each Capsule.dr 1 Each PO DAILY Multi-Vitamin Daily (Multivitamin) 1 Each Tablet 1 Each PO Isosorbide Mononitrate Er (Isosorbide Mononitrate) 60 Mg Tab.er.24h 1.5 Tab PO DAILY Gabapentin Oral Solution (Gabapentin) 300 Mg/6 Ml Solution 300 Mg PO HS Furosemide 80 Mg Tablet 1 Tab PO DAILY Colace (Docusate Sodium) 100 Mg Capsule 1 Cap PO DAILY Cyclobenzaprine Hcl 10 Mg Tablet 1 Tab PO QHS PRN Atorvastatin Calcium 80 Mg Tablet 1 Tab PO HS PRN Aspirin 325 Mg Tablet 1 Tab PO DAILY Xanax (Alprazolam) 1 Mg Tablet 1 Tab PO TID Mucus And Cough Relief Tablet (Guaifenesin/Dextromethorphan) 1 Each Tablet 1 Each PO Q4-6HRS PRN Potassium Chloride 20 Meq Tab.er.prt 1 Tab PO BID Sucralfate 1 Gm Tablet 1 Tab PO QID Vitals/I & O Vital Sign - Last 24 Hours 12/27/16 12/27/16 12/27/16 12/27/16 15:40 16:01 17:01 19:13 Resp 20 20 Pulse Ox 95 95 95 O2 Delivery Nasal Cannula Nasal Cannula Nasal Cannula Nasal Cannula O2 Flow Rate 3.0 3.0 3.0 3.0 12/27/16 12/27/16 12/27/16 12/28/16 19:42 20:39 22:39 02:20 Temp 97.6 97.6 97.4 97.6 97.6 97.4 Pulse 75 75 84 76 Resp 22 22 20 B/P 117/88 117/88 140/77 152/115 Pulse Ox 91 91 89 O2 Delivery Nasal Cannula Nasal Cannula Nasal Cannula O2 Flow Rate 3.0 3.0 3.0 12/28/16 12/28/16 12/28/16 12/28/16 05:11 05:35 06:00 07:00 Temp 98.4 98.4 98.4 98.4 Pulse 109 95 Resp 28 28 B/P 140/69 149/71 Pulse Ox 79 91 84 O2 Delivery Nasal Cannula Nasal Cannula Nasal Cannula O2 Flow Rate 3.0 2.0 3.0 12/28/16 12/28/16 12/28/16 12/28/16 07:35 08:04 09:10 09:20 Pulse Ox 90 O2 Delivery Nasal Cannula Nasal Cannula Nasal Cannula BiPAP/CPAP O2 Flow Rate 3.0 5.0 5.0 12/28/16 12/28/16 12/28/16 12/28/16 10:15 11:00 12:00 12:05 Temp 98.4 98.7 98.4 98.7 Pulse 99 106 105 Resp 28 28 26 B/P 121/78 102/75 109/72 Pulse Ox 92 98 96 O2 Delivery BiPAP/CPAP BiPAP/CPAP Venturi Mask BiPAP/CPAP 12/28/16 14:36 Pulse 156 B/P 118/87 Intake and Output 12/27/16 12/27/16 12/28/16 15:00 23:00 07:00 Intake Total 360 ml 120 ml Output Total 100 ml Balance 260 ml 120 ml HEYDI IGLESIAS MD Dec 28, 2016 14:53
[2016-12-28] MEDS ORDERED: DILTIAZEM IV PUSH 25 MG/5 ML VIAL. IVP ONE (15:00)
[2016-12-28] MEDS ORDERED: LEVOFLOXACIN PER PHARMACY MC PRN (15:00)
[2016-12-28] MEDS: methylPREDNISolone SOD SUCC PF 40 MG/ML VIAL. IV SCH ×2 (15:22→21:32)
[2016-12-28 15:41] LABS: MAGNESIUM 2.1 mg/dL (1.8-2.4); POTASSIUM 4.4 mmol/L (3.5-5.1)
[2016-12-28] MEDS: GABAPENTIN 300 MG CAPSULE. PO SCH (21:29)
[2016-12-28] MEDS: ATORVASTATIN CALCIUM 40 MG TABLET. PO SCH (21:32)
[2016-12-29] VITALS (22 sets, daily range): BP systolic 87–164; BP diastolic 40–111
[2016-12-29] MEDS: LORAZEPAM 0.5 MG TABLET. PO PRN (01:53)
[2016-12-29] MEDS: methylPREDNISolone SOD SUCC PF 40 MG/ML VIAL. IV SCH ×3 (05:42→20:33)
[2016-12-29] MEDS: IPRATRPIUM/ALBUTEROL 0.5/2.5MG 3 ML NEBU. NEB SCH ×4 (07:10→19:27)
[2016-12-29] MEDS: VERAPAMIL SR 180 MG TABLET.ER. PO SCH ×2 (08:19→20:33)
[2016-12-29] MEDS: PANTOPRAZOLE IV PUSH 40 MG VIAL. IVP SCH (08:19)
[2016-12-29 08:20] LABS: HCO3 ABG 34 mmol/L (21-28); PCO2 ABG 57 mmHg (35-46); PH ABG 7.39 (7.35-7.45); PO2 ABG 73 mmHg (65-108); SAT O2 ABG 93 % (92-99)
[2016-12-29] MEDS: SUCRALFATE 1 GM TABLET. PO SCH ×5 (08:20→20:52)
[2016-12-29] MEDS: OMEGA-3 FATTY ACIDS/FISH OIL 1,000 MG CAPSULE. PO SCH (08:20)
[2016-12-29] MEDS: ISOSORBIDE MONONITRATE ER 60 MG TAB.ER.24H PO SCH (08:20)
[2016-12-29] MEDS: ALPRAZOLAM 0.5 MG TABLET PO SCH ×3 (08:20→20:32)
[2016-12-29] MEDS: ASPIRIN 81 MG TAB.CHEW PO SCH (08:20)
[2016-12-29] MEDS: CLOPIDOGREL BISULFATE 75 MG TABLET PO SCH (08:20)
[2016-12-29] MEDS: DIGOXIN 500 MCG/2 ML AMPUL. IV SCH (08:21)
[2016-12-29] MEDS: POTASSIUM CHLORIDE 20 MEQ TABLET.ER. PO SCH ×3 (08:22→20:53)
[2016-12-29] MEDS: DOCUSATE SODIUM 100 MG CAPSULE PO SCH (08:23)
--- NOTE | 2016-12-29 08:36 | RAD ---
Portable chest, 12/29/2016: History: Shortness of breath Comparison is made to yesterday's study. The heart size and pulmonary vascularity are normal. There is calcific plaquing of the aorta. No pulmonary infiltrates are seen. There is no evidence of pleural fluid. IMPRESSION: No acute cardiopulmonary abnormality is detected.
[2016-12-29 08:56] LABS: FIO2 ABG 50
[2016-12-29] MEDS: HYDROCODONE/APAP 10/325 TABLET. PO PRN ×2 (09:34→19:54)
[2016-12-29 09:57] LABS: BASO % 0 % (0-3); EOS % 0 % (0-3); HEMATOCRIT 39.8 % (36.0-47.0); HEMOGLOBIN 12.8 g/dL (12.0-15.5); LYMPH # 0.4 x10^3/uL (1.0-4.8); LYMPH % 5 % (24-48); MEAN CORPUSCULAR HEMOGLOBIN 26 pg (25-35); MEAN CORPUSCULAR HGB CONC 32 g/dL (31-37); MEAN CORPUSCULAR VOLUME 82 fL (79-100); MONO % 9 % (0-9); NEUT % 86 % (31-73); PLATELET COUNT 145 x10^3/uL (140-400); RED BLOOD COUNT 4.87 x10^6/uL (3.50-5.40); RED CELL DISTRIBUTION WIDTH 16.3 % (11.5-14.5); WHITE BLOOD COUNT 6.9 x10^3/uL (4.0-11.0)
[2016-12-29 10:02] LABS: GFR 55.6; POTASSIUM 3.9 mmol/L (3.5-5.1)
--- NOTE | 2016-12-29 11:43 | PDOC ---
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 Vitals Vitals Vital Signs Date Time Temp Pulse Resp B/P Pulse Ox O2 Delivery O2 Flow Rate FiO2 12/29/16 10:00 100 143/75 94 BiPAP/CPAP 12/29/16 09:34 22 12/29/16 08:00 98.8 98.8 12/29/16 08:00 5.0 Weight Weight [ ] Input and Output Intake and Output Intake and Output 12/29/16 07:00 Intake Total 455 ml Output Total 1680 ml Balance -1225 ml Intake Oral 305 ml IV Total 150 ml Output Urine Total 1680 ml Laboratory Labs Laboratory Tests Test 12/28/16 15:20 12/29/16 08:00 12/29/16 09:40 Potassium Level 4.4mmol/L (3.5-5.1) 3.9mmol/L (3.5-5.1) Magnesium Level 2.1mg/dL (1.8-2.4) O2 Saturation 93% (92-99) Arterial Blood pH 7.39 (7.35-7.45) Arterial Blood pCO2 at Patient Temp 57mmHg (35-46) Arterial Blood pO2 at Patient Temp 73mmHg (65-108) Arterial Blood HCO3 34mmol/L (21-28) Arterial Blood Base Excess 7mmol/L (-3-3) FiO2 50 White Blood Count 6.9x10^3/uL (4.0-11.0) Red Blood Count 4.87x10^6/uL (3.50-5.40) Hemoglobin 12.8g/dL (12.0-15.5) Hematocrit 39.8% (36.0-47.0) Mean Corpuscular Volume 82fL (79-100) Mean Corpuscular Hemoglobin 26pg (25-35) Mean Corpuscular Hemoglobin Concent 32g/dL (31-37) Red Cell Distribution Width 16.3% (11.5-14.5) Platelet Count 145x10^3/uL (140-400) Neutrophils (%) (Auto) 86% (31-73) Lymphocytes (%) (Auto) 5% (24-48) Monocytes (%) (Auto) 9% (0-9) Eosinophils (%) (Auto) 0% (0-3) Basophils (%) (Auto) 0% (0-3) Neutrophils # (Auto) 6.0x10^3uL (1.8-7.7) Lymphocytes # (Auto) 0.4x10^3/uL (1.0-4.8) Monocytes # (Auto) 0.6x10^3/uL (0.0-1.1) Eosinophils # (Auto) 0.0x10^3/uL (0.0-0.7) Basophils # (Auto) 0.0x10^3/uL (0.0-0.2) Sodium Level 144mmol/L (136-145) Chloride Level 102mmol/L (98-107) Carbon Dioxide Level 36mmol/L (21-32) Anion Gap 6 (6-14) Blood Urea Nitrogen 48mg/dL (7-20) Creatinine 1.0mg/dL (0.6-1.0) Estimated GFR (Cockcroft-Gault) 55.6 Glucose Level 123mg/dL (70-99) Calcium Level 9.0mg/dL (8.5-10.1) Physical Exam HEENT: Neck Supple W Full Motion Chest: Symmetric LUNGS: Other (diminished bases. continuous BiPAP) Heart: S1S2, RRR, murmurs, other (tele: SR/ST with PAF. distant heart tones) Abdomen: Soft N/T Extremities: No Edema Neurology: alert, follow commands, confused (intermittent ), other Assessment Assessment 1. atrial dysrhythmia 2. acute on chronic systolic heart failure 3. NICM 4. Acute on Chronic Respiratory Failure 5. NSTEMI s/p cath with no obstructive CAD 6. Hypertension 7. Peripheral artery disease Recommendations Continues to have intermittent PAFIB. Rate presently controlled. Dysrhythmias likely respiratory inducted- requiring continuous BiPAP. Continue dig and verapamil for rate control. If further PSVT occurs, will use short-term Amiodarone for rate/rhythm control. Add RESHMA for HF optimization Continue supportive care Management of respiratory failure per pulmonary. JIM GONZALEZ MD 01/01/17 1004: CARDIO Progress Notes Plan Plan Patient [place] for 12/29/2016. Patient seen and examined. Agree with the nurse practitioner note. Patient with persistent respiratory failure. Paroxysmal supraventricular tachycardia secondary to respiratory failure from COPD. No significant changes in cardiac and pulmonary examination. Significantly decreased breath sounds bilaterally. Labs and medications reviewed. Continue supportive care from a cardiac standpoint. We will use amiodarone as necessary to decrease any paroxysmal supraventricular tachycardia. CAMI JOHNSON APRN Dec 29, 2016 11:42 JIM GONZALEZ MD Jan 01, 2017 10:04
--- NOTE | 2016-12-29 12:58 | PDOC ---
PULMONARY PROGRESS NOTES Subjective PT ON BIPAP, FOLLOWS COMMANDS Vitals Vital Signs Date Time Temp Pulse Resp B/P Pulse Ox O2 Delivery O2 Flow Rate FiO2 12/29/16 11:48 93 BiPAP/CPAP 12/29/16 10:00 100 143/75 12/29/16 09:34 22 12/29/16 08:00 98.8 98.8 12/29/16 08:00 5.0 ROS: No Nausea, No Chest Pain, No Abdominal Pain, No Increase Cough General: Alert Lungs: Other (bl rhonchis) Cardiovascular: S1, S2 Abdomen: Soft, Non-tender Neuro Exam: Alert Extremities: No Edema, Other Skin: Warm Labs Laboratory Tests Test 12/28/16 03:10 12/28/16 03:40 12/28/16 08:34 12/28/16 10:45 Sodium Level 143mmol/L (136-145) Potassium Level 4.1mmol/L (3.5-5.1) Chloride Level 100mmol/L (98-107) Carbon Dioxide Level 37mmol/L (21-32) Anion Gap 6 (6-14) Blood Urea Nitrogen 34mg/dL (7-20) Creatinine 1.4mg/dL (0.6-1.0) Estimated GFR (Cockcroft-Gault) 37.7 Glucose Level 107mg/dL (70-99) Calcium Level 9.2mg/dL (8.5-10.1) OL-Lvv-S-Type Natriuretic Peptide 4846pg/mL (0-124) White Blood Count 5.8x10^3/uL (4.0-11.0) Red Blood Count 5.05x10^6/uL (3.50-5.40) Hemoglobin 13.3g/dL (12.0-15.5) Hematocrit 42.4% (36.0-47.0) Mean Corpuscular Volume 84fL (79-100) Mean Corpuscular Hemoglobin 26pg (25-35) Mean Corpuscular Hemoglobin Concent 31g/dL (31-37) Red Cell Distribution Width 16.5% (11.5-14.5) Platelet Count 144x10^3/uL (140-400) Neutrophils (%) (Auto) 74% (31-73) Lymphocytes (%) (Auto) 6% (24-48) Monocytes (%) (Auto) 20% (0-9) Eosinophils (%) (Auto) 0% (0-3) Basophils (%) (Auto) 0% (0-3) Neutrophils # (Auto) 4.3x10^3uL (1.8-7.7) Lymphocytes # (Auto) 0.4x10^3/uL (1.0-4.8) Monocytes # (Auto) 1.1x10^3/uL (0.0-1.1) Eosinophils # (Auto) 0.0x10^3/uL (0.0-0.7) Basophils # (Auto) 0.0x10^3/uL (0.0-0.2) Arterial Blood pH 7.26 (7.35-7.45) 7.39 (7.35-7.45) Arterial Blood pCO2 at Patient Temp 87mmHg (35-46) 54mmHg (35-46) Arterial Blood pO2 at Patient Temp 73mmHg (65-108) 79mmHg (65-108) Arterial Blood HCO3 38mmol/L (21-28) 32mmol/L (21-28) Arterial Blood Base Excess 7mmol/L (-3-3) 6mmol/L (-3-3) FiO2 40 40 O2 Saturation 95% (92-99) Test 12/28/16 15:20 12/29/16 08:00 12/29/16 09:40 Potassium Level 4.4mmol/L (3.5-5.1) 3.9mmol/L (3.5-5.1) Magnesium Level 2.1mg/dL (1.8-2.4) O2 Saturation 93% (92-99) Arterial Blood pH 7.39 (7.35-7.45) Arterial Blood pCO2 at Patient Temp 57mmHg (35-46) Arterial Blood pO2 at Patient Temp 73mmHg (65-108) Arterial Blood HCO3 34mmol/L (21-28) Arterial Blood Base Excess 7mmol/L (-3-3) FiO2 50 White Blood Count 6.9x10^3/uL (4.0-11.0) Red Blood Count 4.87x10^6/uL (3.50-5.40) Hemoglobin 12.8g/dL (12.0-15.5) Hematocrit 39.8% (36.0-47.0) Mean Corpuscular Volume 82fL (79-100) Mean Corpuscular Hemoglobin 26pg (25-35) Mean Corpuscular Hemoglobin Concent 32g/dL (31-37) Red Cell Distribution Width 16.3% (11.5-14.5) Platelet Count 145x10^3/uL (140-400) Neutrophils (%) (Auto) 86% (31-73) Lymphocytes (%) (Auto) 5% (24-48) Monocytes (%) (Auto) 9% (0-9) Eosinophils (%) (Auto) 0% (0-3) Basophils (%) (Auto) 0% (0-3) Neutrophils # (Auto) 6.0x10^3uL (1.8-7.7) Lymphocytes # (Auto) 0.4x10^3/uL (1.0-4.8) Monocytes # (Auto) 0.6x10^3/uL (0.0-1.1) Eosinophils # (Auto) 0.0x10^3/uL (0.0-0.7) Basophils # (Auto) 0.0x10^3/uL (0.0-0.2) Sodium Level 144mmol/L (136-145) Chloride Level 102mmol/L (98-107) Carbon Dioxide Level 36mmol/L (21-32) Anion Gap 6 (6-14) Blood Urea Nitrogen 48mg/dL (7-20) Creatinine 1.0mg/dL (0.6-1.0) Estimated GFR (Cockcroft-Gault) 55.6 Glucose Level 123mg/dL (70-99) Calcium Level 9.0mg/dL (8.5-10.1) Laboratory Tests Test 12/28/16 15:20 12/29/16 08:00 12/29/16 09:40 Potassium Level 4.4mmol/L (3.5-5.1) 3.9mmol/L (3.5-5.1) Magnesium Level 2.1mg/dL (1.8-2.4) O2 Saturation 93% (92-99) Arterial Blood pH 7.39 (7.35-7.45) Arterial Blood pCO2 at Patient Temp 57mmHg (35-46) Arterial Blood pO2 at Patient Temp 73mmHg (65-108) Arterial Blood HCO3 34mmol/L (21-28) Arterial Blood Base Excess 7mmol/L (-3-3) FiO2 50 White Blood Count 6.9x10^3/uL (4.0-11.0) Red Blood Count 4.87x10^6/uL (3.50-5.40) Hemoglobin 12.8g/dL (12.0-15.5) Hematocrit 39.8% (36.0-47.0) Mean Corpuscular Volume 82fL (79-100) Mean Corpuscular Hemoglobin 26pg (25-35) Mean Corpuscular Hemoglobin Concent 32g/dL (31-37) Red Cell Distribution Width 16.3% (11.5-14.5) Platelet Count 145x10^3/uL (140-400) Neutrophils (%) (Auto) 86% (31-73) Lymphocytes (%) (Auto) 5% (24-48) Monocytes (%) (Auto) 9% (0-9) Eosinophils (%) (Auto) 0% (0-3) Basophils (%) (Auto) 0% (0-3) Neutrophils # (Auto) 6.0x10^3uL (1.8-7.7) Lymphocytes # (Auto) 0.4x10^3/uL (1.0-4.8) Monocytes # (Auto) 0.6x10^3/uL (0.0-1.1) Eosinophils # (Auto) 0.0x10^3/uL (0.0-0.7) Basophils # (Auto) 0.0x10^3/uL (0.0-0.2) Sodium Level 144mmol/L (136-145) Chloride Level 102mmol/L (98-107) Carbon Dioxide Level 36mmol/L (21-32) Anion Gap 6 (6-14) Blood Urea Nitrogen 48mg/dL (7-20) Creatinine 1.0mg/dL (0.6-1.0) Estimated GFR (Cockcroft-Gault) 55.6 Glucose Level 123mg/dL (70-99) Calcium Level 9.0mg/dL (8.5-10.1) Medications Active Scripts Medications Dose Route/Sig Days Date Category Prednisone 10 Mg Tablet 10 Mg PO DAILY 09/13/16 Reported Proair Hfa Inhaler (Albuterol Sulfate) 8.5 Gm Hfa.aer.ad 1 Puff INH PRN Q6HRS PRN 08/01/16 Reported Hydrocodone-Apap 10-325 (Hydrocodone Bit/Acetaminophen) 1 Each Tablet 1 Tab PO Q8HRS PRN 07/19/16 Rx Zolpidem Tartrate 10 Mg Tablet 1 Tab PO QHS 10/31/15 Reported Verapamil Er (Verapamil Hcl) 180 Mg Tablet.er 180 Mg PO DAILY 10/31/15 Reported Pantoprazole Sodium 40 Mg Tablet.dr 1 Tab PO DAILY 10/31/15 Reported [place] 3 Fish Oil Softgel ([place]-3 Fatty Acids/Fish Oil) 1 Each Capsule.dr 1 Each PO DAILY 10/31/15 Reported Multi-Vitamin Daily (Multivitamin) 1 Each Tablet 1 Each PO 10/31/15 Reported Isosorbide Mononitrate Er (Isosorbide Mononitrate) 60 Mg Tab.er.24h 1.5 Tab PO DAILY 10/31/15 Reported Gabapentin Oral Solution (Gabapentin) 300 Mg/6 Ml Solution 300 Mg PO HS 10/31/15 Reported Furosemide 80 Mg Tablet 1 Tab PO DAILY 10/31/15 Reported Colace (Docusate Sodium) 100 Mg Capsule 1 Cap PO DAILY 10/31/15 Reported Cyclobenzaprine Hcl 10 Mg Tablet 1 Tab PO QHS PRN 10/31/15 Reported Atorvastatin Calcium 80 Mg Tablet 1 Tab PO HS PRN 10/31/15 Reported Aspirin 325 Mg Tablet 1 Tab PO DAILY 10/31/15 Reported Xanax (Alprazolam) 1 Mg Tablet 1 Tab PO TID 10/31/15 Reported Mucus And Cough Relief Tablet (Guaifenesin/Dextromethorphan) 1 Each Tablet 1 Each PO Q4-6HRS PRN 10/31/15 Reported Potassium Chloride 20 Meq Tab.er.prt 1 Tab PO BID 10/31/15 Reported Sucralfate 1 Gm Tablet 1 Tab PO QID 10/31/15 Reported Impression . 1. [id number] hypoxemic respiratory failure. 2. Mild acute exacerbation of chronic obstructive pulmonary disease. 3. Non-ST segment elevation, status post previous percutaneous coronary with two stents. 4. Coronary artery disease as described above. 5. Chronic obstructive pulmonary disease. 6. Gastroesophageal reflux. 7. Dementia. 8. Electrolytes abnormalities. 9. Chronic diastolic heart failure. 10. Peripheral arterial disease. 11. Nonspecific anxiety. Plan . ABG IMPROVED BUT PT DOES NOT TOLERATE BEING OFF BIPAP MAY NEED LTAC CONTINUE SAME START DIET ARTERIAL STUDY BELOW PER PCP ARTERIAL STUDY There is multifocal plaque seen throughout the vasculature of the bilateral legs. In addition there are monophasic waveforms seen bilaterally which can be seen with hemodynamically significant regions of narrowing. The bilateral peroneal arteries are not visualized therefore occlusion not excluded. Soft tissue edema is visualized ESCOBAR BALL MD Dec 29, 2016 12:58
--- NOTE | 2016-12-29 13:39 | PDOC ---
PROGRESS NOTES Chief Complaint Chief Complaint 1. ACUTE on chronic hypoxic resp failure with COPD, CHF 2. NSTEMI s/p PCI with 2 stents 3. COPD 4. H/O CAD 5. htn 6.hld 7. GERD 8. DEmentia, mild 9. chronic back and knee pain 10. hypokalemia 11. hyomagnesemia 12. thrombocytopenia 13. rapid afib 14. systolic CHF exacerbation EF 255 15. SVT POST cath 16. PAD 17 rapid afib PLAN: .1. fu with card. post Cath , fu pulm 2. cont home meds 3. off cardizem, on dig and verapimil. ON ASA, plavix, lipitor 4.transfer to ICU ON 12/28 WITH RESP FAIlure, need bipap. add solumedrol, levaquin, on duoneb, BIPAP as needed dig iv now, will give cardizem if need gi ppx replete K History of Present Illness History of Present Illness post cath on 12/26, 2 stents SVT at night, got adenosine 2 times, then dig sob, home o2 2.5L, now 3 very sob on 12/28 am, desat, got ABG, CXR, lasix iv ,PCO2 86 TRANSFER TO icu, still need bipap rapid afib, better Vitals Vitals Vital Signs Date Time Temp Pulse Resp B/P Pulse Ox O2 Delivery O2 Flow Rate FiO2 12/29/16 11:48 93 BiPAP/CPAP 12/29/16 10:00 100 143/75 12/29/16 09:34 22 12/29/16 08:00 98.8 98.8 12/29/16 08:00 5.0 Physical Exam General: Alert, Oriented X3, Cooperative, No acute distress Heart: Regular rate, Normal S1, Normal S2, Other (2/6 systolic murmur, distant heart tones) Lungs: Other (bl rhonchis) Abdomen: Soft Extremities: Other (right foot mottling, bilateral posterior tibial and left DP pulses detected by doppler. unable to detect right DP pulse, 1+ bilateral LE edema. chronic venous stasis changes bi LE) Skin: No significant lesion Labs LABS Laboratory Tests Test 12/28/16 15:20 12/29/16 08:00 12/29/16 09:40 Potassium Level 4.4mmol/L (3.5-5.1) 3.9mmol/L (3.5-5.1) Magnesium Level 2.1mg/dL (1.8-2.4) O2 Saturation 93% (92-99) Arterial Blood pH 7.39 (7.35-7.45) Arterial Blood pCO2 at Patient Temp 57mmHg (35-46) Arterial Blood pO2 at Patient Temp 73mmHg (65-108) Arterial Blood HCO3 34mmol/L (21-28) Arterial Blood Base Excess 7mmol/L (-3-3) FiO2 50 White Blood Count 6.9x10^3/uL (4.0-11.0) Red Blood Count 4.87x10^6/uL (3.50-5.40) Hemoglobin 12.8g/dL (12.0-15.5) Hematocrit 39.8% (36.0-47.0) Mean Corpuscular Volume 82fL (79-100) Mean Corpuscular Hemoglobin 26pg (25-35) Mean Corpuscular Hemoglobin Concent 32g/dL (31-37) Red Cell Distribution Width 16.3% (11.5-14.5) Platelet Count 145x10^3/uL (140-400) Neutrophils (%) (Auto) 86% (31-73) Lymphocytes (%) (Auto) 5% (24-48) Monocytes (%) (Auto) 9% (0-9) Eosinophils (%) (Auto) 0% (0-3) Basophils (%) (Auto) 0% (0-3) Neutrophils # (Auto) 6.0x10^3uL (1.8-7.7) Lymphocytes # (Auto) 0.4x10^3/uL (1.0-4.8) Monocytes # (Auto) 0.6x10^3/uL (0.0-1.1) Eosinophils # (Auto) 0.0x10^3/uL (0.0-0.7) Basophils # (Auto) 0.0x10^3/uL (0.0-0.2) Sodium Level 144mmol/L (136-145) Chloride Level 102mmol/L (98-107) Carbon Dioxide Level 36mmol/L (21-32) Anion Gap 6 (6-14) Blood Urea Nitrogen 48mg/dL (7-20) Creatinine 1.0mg/dL (0.6-1.0) Estimated GFR (Cockcroft-Gault) 55.6 Glucose Level 123mg/dL (70-99) Calcium Level 9.0mg/dL (8.5-10.1) Review of Systems Review of Systems no fever, chills, chest pain Assessment and Plan Assessmemt and Plan Problems Medical Problems: (1) Atrial fibrillation with RVR Status: Acute (2) Cardiac ischemia Status: Acute (3) COPD exacerbation Status: Acute Problems: Comment Review of Relevant I have reviewed the following items claudia (where applicable) has been applied. Labs Laboratory Tests Test 12/28/16 03:10 12/28/16 03:40 12/28/16 08:34 12/28/16 10:45 Sodium Level 143mmol/L (136-145) Potassium Level 4.1mmol/L (3.5-5.1) Chloride Level 100mmol/L (98-107) Carbon Dioxide Level 37mmol/L (21-32) Anion Gap 6 (6-14) Blood Urea Nitrogen 34mg/dL (7-20) Creatinine 1.4mg/dL (0.6-1.0) Estimated GFR (Cockcroft-Gault) 37.7 Glucose Level 107mg/dL (70-99) Calcium Level 9.2mg/dL (8.5-10.1) VE-Dwv-T-Type Natriuretic Peptide 4846pg/mL (0-124) White Blood Count 5.8x10^3/uL (4.0-11.0) Red Blood Count 5.05x10^6/uL (3.50-5.40) Hemoglobin 13.3g/dL (12.0-15.5) Hematocrit 42.4% (36.0-47.0) Mean Corpuscular Volume 84fL (79-100) Mean Corpuscular Hemoglobin 26pg (25-35) Mean Corpuscular Hemoglobin Concent 31g/dL (31-37) Red Cell Distribution Width 16.5% (11.5-14.5) Platelet Count 144x10^3/uL (140-400) Neutrophils (%) (Auto) 74% (31-73) Lymphocytes (%) (Auto) 6% (24-48) Monocytes (%) (Auto) 20% (0-9) Eosinophils (%) (Auto) 0% (0-3) Basophils (%) (Auto) 0% (0-3) Neutrophils # (Auto) 4.3x10^3uL (1.8-7.7) Lymphocytes # (Auto) 0.4x10^3/uL (1.0-4.8) Monocytes # (Auto) 1.1x10^3/uL (0.0-1.1) Eosinophils # (Auto) 0.0x10^3/uL (0.0-0.7) Basophils # (Auto) 0.0x10^3/uL (0.0-0.2) Arterial Blood pH 7.26 (7.35-7.45) 7.39 (7.35-7.45) Arterial Blood pCO2 at Patient Temp 87mmHg (35-46) 54mmHg (35-46) Arterial Blood pO2 at Patient Temp 73mmHg (65-108) 79mmHg (65-108) Arterial Blood HCO3 38mmol/L (21-28) 32mmol/L (21-28) Arterial Blood Base Excess 7mmol/L (-3-3) 6mmol/L (-3-3) FiO2 40 40 O2 Saturation 95% (92-99) Test 12/28/16 15:20 12/29/16 08:00 12/29/16 09:40 Potassium Level 4.4mmol/L (3.5-5.1) 3.9mmol/L (3.5-5.1) Magnesium Level 2.1mg/dL (1.8-2.4) O2 Saturation 93% (92-99) Arterial Blood pH 7.39 (7.35-7.45) Arterial Blood pCO2 at Patient Temp 57mmHg (35-46) Arterial Blood pO2 at Patient Temp 73mmHg (65-108) Arterial Blood HCO3 34mmol/L (21-28) Arterial Blood Base Excess 7mmol/L (-3-3) FiO2 50 White Blood Count 6.9x10^3/uL (4.0-11.0) Red Blood Count 4.87x10^6/uL (3.50-5.40) Hemoglobin 12.8g/dL (12.0-15.5) Hematocrit 39.8% (36.0-47.0) Mean Corpuscular Volume 82fL (79-100) Mean Corpuscular Hemoglobin 26pg (25-35) Mean Corpuscular Hemoglobin Concent 32g/dL (31-37) Red Cell Distribution Width 16.3% (11.5-14.5) Platelet Count 145x10^3/uL (140-400) Neutrophils (%) (Auto) 86% (31-73) Lymphocytes (%) (Auto) 5% (24-48) Monocytes (%) (Auto) 9% (0-9) Eosinophils (%) (Auto) 0% (0-3) Basophils (%) (Auto) 0% (0-3) Neutrophils # (Auto) 6.0x10^3uL (1.8-7.7) Lymphocytes # (Auto) 0.4x10^3/uL (1.0-4.8) Monocytes # (Auto) 0.6x10^3/uL (0.0-1.1) Eosinophils # (Auto) 0.0x10^3/uL (0.0-0.7) Basophils # (Auto) 0.0x10^3/uL (0.0-0.2) Sodium Level 144mmol/L (136-145) Chloride Level 102mmol/L (98-107) Carbon Dioxide Level 36mmol/L (21-32) Anion Gap 6 (6-14) Blood Urea Nitrogen 48mg/dL (7-20) Creatinine 1.0mg/dL (0.6-1.0) Estimated GFR (Cockcroft-Gault) 55.6 Glucose Level 123mg/dL (70-99) Calcium Level 9.0mg/dL (8.5-10.1) Laboratory Tests Test 12/28/16 15:20 12/29/16 08:00 12/29/16 09:40 Potassium Level 4.4mmol/L (3.5-5.1) 3.9mmol/L (3.5-5.1) Magnesium Level 2.1mg/dL (1.8-2.4) O2 Saturation 93% (92-99) Arterial Blood pH 7.39 (7.35-7.45) Arterial Blood pCO2 at Patient Temp 57mmHg (35-46) Arterial Blood pO2 at Patient Temp 73mmHg (65-108) Arterial Blood HCO3 34mmol/L (21-28) Arterial Blood Base Excess 7mmol/L (-3-3) FiO2 50 White Blood Count 6.9x10^3/uL (4.0-11.0) Red Blood Count 4.87x10^6/uL (3.50-5.40) Hemoglobin 12.8g/dL (12.0-15.5) Hematocrit 39.8% (36.0-47.0) Mean Corpuscular Volume 82fL (79-100) Mean Corpuscular Hemoglobin 26pg (25-35) Mean Corpuscular Hemoglobin Concent 32g/dL (31-37) Red Cell Distribution Width 16.3% (11.5-14.5) Platelet Count 145x10^3/uL (140-400) Neutrophils (%) (Auto) 86% (31-73) Lymphocytes (%) (Auto) 5% (24-48) Monocytes (%) (Auto) 9% (0-9) Eosinophils (%) (Auto) 0% (0-3) Basophils (%) (Auto) 0% (0-3) Neutrophils # (Auto) 6.0x10^3uL (1.8-7.7) Lymphocytes # (Auto) 0.4x10^3/uL (1.0-4.8) Monocytes # (Auto) 0.6x10^3/uL (0.0-1.1) Eosinophils # (Auto) 0.0x10^3/uL (0.0-0.7) Basophils # (Auto) 0.0x10^3/uL (0.0-0.2) Sodium Level 144mmol/L (136-145) Chloride Level 102mmol/L (98-107) Carbon Dioxide Level 36mmol/L (21-32) Anion Gap 6 (6-14) Blood Urea Nitrogen 48mg/dL (7-20) Creatinine 1.0mg/dL (0.6-1.0) Estimated GFR (Cockcroft-Gault) 55.6 Glucose Level 123mg/dL (70-99) Calcium Level 9.0mg/dL (8.5-10.1) Medications Current Medications Albuterol/ Ipratropium 3 ml 3 ml 1X ONCE NEB Last administered on 12/25/16 05 :49; Start 12/25/16 at 05:30; Stop 12/25/16 at 05:31; Status DC Sodium Chloride (Iv Sodium Chloride 0.9% 500ml Bag) 500 ml @ 500 mls/hr 1X ONCE IV Last administered on 12/25/16 06:09; Start 12/25/16 at 06:15; Stop at 07:14; Status DC Diltiazem HCl 20 mg 20 mg 1X ONCE IVP Last administered on 12/25/16 06:30; Start 12/25/16 at 06:30; Stop 12/25/16 at 15:01; Status DC Diltiazem HCl/ Dextrose (Cardizem) 125 ml @ 10 mls/hr 1X ONCE IV Last administered on 12/25/16 06:30; Start 12/25/16 at 06:30; Stop 12/25/16 at 15:01 ; Status DC Albuterol/ Ipratropium (Duoneb) 3 ml QID NEB Last administered on 12/25/16 13: 05; Start 12/25/16 at 13:30; Stop 12/25/16 at 14:46; Status DC Aspirin (Dutch Aspirin) 325 mg DAILY PO Last administered on 12/27/16 07:56; Start 12/25/16 at 15:30; Stop 12/28/16 at 12:29; Status DC Furosemide (Lasix) 80 mg DAILY PO Last administered on 12/27/16 07:56; Start 12/25/16 at 15:30; Stop 12/28/16 at 14:50; Status DC Isosorbide Mononitrate (Imdur) 60 mg DAILY PO Last administered on 12/29/16 08 :20; Start 12/25/16 at 15:30 Pantoprazole Sodium (Protonix) 40 mg DAILY PO Last administered on 12/27/16 07 :56; Start 12/25/16 at 15:30; Stop 12/28/16 at 14:50; Status DC Potassium Chloride (Klor-Con) 20 meq BID PO Last administered on 12/29/16 08: 22; Start 12/25/16 at 21:00 Atorvastatin Calcium (Lipitor) 80 mg QHS PO Last administered on 12/28/16 21: 32; Start 12/25/16 at 21:00 Potassium Chloride (Klor-Con) 40 meq 1X ONCE PO Last administered on 15:49; Start 12/25/16 at 15:00; Stop 12/25/16 at 15:01; Status DC Albuterol/ Ipratropium 3 ml 3 ml RTQID NEB Last administered on 12/26/16 12:27 ; Start 12/25/16 at 16:00; Stop 12/26/16 at 15:35; Status DC Heparin Sodium/ Dextrose 500 ml @ 0 mls/hr CONT PRN IV SEE I/O RECORD Last administered on 12/25/16 16:00; Start 12/25/16 at 15:00; Stop 12/27/16 at 16:54 ; Status DC Heparin Sodium (Porcine) 1,900 unit PRN Q6HRS PRN IV FOR UFH LEVEL LESS THAN 0.2; Start 12/25/16 at 15:00; Stop 12/27/16 at 16:54; Status DC Diltiazem HCl (Cardizem 24hr Cd) 180 mg DAILY PO Last administered on 08:30; Start 12/25/16 at 15:30; Stop 12/26/16 at 13:17; Status DC Info 1 each 1 each PRN DAILY PRN MC SEE COMMENTS Last administered on 13:01; Start 12/25/16 at 15:15; Stop 12/28/16 at 12:31; Status DC Magnesium Sulfate/ Dextrose (Magnesium Sulfate PREMIX 2GM) 50 ml @ 25 mls/hr 1X ONCE IV Last administered on 12/25/16 17:38; Start 12/25/16 at 17:30; Stop 12/25/16 at 19:29; Status DC Albuterol Sulfate (Ventolin Neb Soln) 2.5 mg PRN Q4HRS PRN NEB SHORTNESS OF BREATH Last administered on 12/28/16 15:12; Start 12/25/16 at 17:15 Lorazepam (Ativan) 0.5 mg PRN Q8HRS PRN PO ANXIETY / AGITATION Last administered on 12/29/16 01:53; Start 12/25/16 at 17:15 Potassium Chloride 40 meq 40 meq 1X ONCE PO Last administered on 12/26/16 06: 34; Start 12/26/16 at 06:00; Stop 12/26/16 at 06:01; Status DC Potassium Chloride (KCl Premix 10meq) 100 ml @ 100 mls/hr Q1H IV Last administered on 12/26/16 15:29; Start 12/26/16 at 06:00; Stop 12/26/16 at 09:59 ; Status DC Hydralazine HCl (Apresoline) 10 mg PRN Q4HRS PRN IVP ELEVATED BP, SEE COMMENTS Last administered on 12/26/16 11:08; Start 12/26/16 at 08:45 Alprazolam (Xanax) 0.5 mg TID PO Last administered on 12/29/16 08:20; Start at 10:00 Cyclobenzaprine HCl (Flexeril) 10 mg PRN QHS PRN PO MUSCLE SPASMS Last administered on 12/27/16 13:21; Start 12/26/16 at 09:30 Docusate Sodium (Colace) 100 mg DAILY PO Last administered on 12/29/16 08:23; Start 12/26/16 at 10:00 Acetaminophen/ Hydrocodone Bitart (Lortab 10/325) 1 tab PRN Q8HRS PRN PO PAIN Last administered on 12/29/16 09:34; Start 12/26/16 at 09:30 Prednisone (Prednisone) 10 mg DAILY PO Last administered on 12/27/16 07:56; Start 12/26/16 at 10:00; Stop 12/28/16 at 14:50; Status DC Verapamil HCl (Calan Sr) 180 mg DAILY PO Last administered on 12/26/16 10:12; Start 12/26/16 at 10:00; Stop 12/26/16 at 13:17; Status DC Gabapentin (Neurontin) 300 mg QHS PO Last administered on 12/28/16 21:29; Start 12/26/16 at 21:00 Guaifenesin (Mucinex) 600 mg PRN BID PRN PO CONGESTION Last administered on 20:38; Start 12/26/16 at 21:00 Fish Oil (Fish Oil) 1,000 mg DAILY PO Last administered on 12/29/16 08:20; Start 12/26/16 at 10:00 Sucralfate (Carafate) 1 gm QID PO Last administered on 12/29/16 08:20; Start 12/26/16 at 13:00 Albuterol Sulfate (Ventolin Neb Soln) 2.5 mg PRN Q4HRS PRN NEB SHORTNESS OF BREATH; Start 12/26/16 at 09:30; Status Cancel Iohexol 100 ml 100 ml STK-MED ONCE .ROUTE ; Start 12/26/16 at 10:51; Stop at 10:52; Status DC Heparin Sodium/ Sodium Chloride 1,000 ml @ As Directed STK-MED ONCE .ROUTE ; Start 12/26/16 at 10:51; Stop 12/26/16 at 10:52; Status DC Lidocaine HCl 20 ml STK-MED ONCE .ROUTE ; Start 12/26/16 at 10:52; Stop at 10:53; Status DC Nitroglycerin (Nitroglycerin) 200 mcg STK-MED ONCE .ROUTE ; Start 12/26/16 at 11 :19; Stop 12/26/16 at 11:20; Status DC Verapamil HCl (Verapamil) 5 mg STK-MED ONCE .ROUTE ; Start 12/26/16 at 11:19; Stop 12/26/16 at 11:20; Status DC Heparin Sodium (Porcine) 10,000 unit STK-MED ONCE .ROUTE ; Start 12/26/16 at 11: 19; Stop 12/26/16 at 11:20; Status DC Fentanyl Citrate (Fentanyl 2ml Vial) 100 mcg STK-MED ONCE .ROUTE ; Start at 11:19; Stop 12/26/16 at 11:20; Status DC Midazolam HCl (Versed) 5 mg STK-MED ONCE .ROUTE ; Start 12/26/16 at 11:19; Stop 12/26/16 at 11:20; Status DC Nitroglycerin (Nitroglycerin) 200 mcg 1X ONCE IART Last administered on 11:30; Start 12/26/16 at 11:30; Stop 12/26/16 at 11:38; Status DC Verapamil HCl (Verapamil) 2.5 mg 1X ONCE IART Last administered on 12/26/16 11:30; Start 12/26/16 at 11:30; Stop 12/26/16 at 11:38; Status DC Heparin Sodium (Porcine) 2,500 unit 1X ONCE IART Last administered on 11:55; Start 12/26/16 at 11:30; Stop 12/26/16 at 11:38; Status DC Heparin Sodium/ Sodium Chloride 1,000 unit 1X ONCE IART Last administered on 11:54; Start 12/26/16 at 11:30; Stop 12/26/16 at 11:38; Status DC Midazolam HCl (Versed) 5 mg 1X ONCE IV Last administered on 12/26/16 11:52; Start 12/26/16 at 11:30; Stop 12/26/16 at 11:38; Status DC Fentanyl Citrate (Fentanyl 2ml Vial) 100 mcg 1X ONCE IV Last administered on 11:53; Start 12/26/16 at 11:30; Stop 12/26/16 at 11:38; Status DC Iohexol (Omnipaque 300 Mg/ml) 100 ml 1X ONCE IART Last administered on 11:53; Start 12/26/16 at 11:30; Stop 12/26/16 at 11:38; Status DC Lidocaine HCl 20 ml 1X ONCE IJ Last administered on 12/26/16 11:52; Start at 11:30; Stop 12/26/16 at 11:38; Status DC Clopidogrel Bisulfate (Plavix) 75 mg STK-MED ONCE .ROUTE ; Start 12/26/16 at 12: 00; Stop 12/26/16 at 12:01; Status DC Clopidogrel Bisulfate (Plavix) 600 mg 1X ONCE PO Last administered on 12:03; Start 12/26/16 at 12:15; Stop 12/26/16 at 12:16; Status DC Digoxin (Lanoxin) 500 mcg 1X ONCE IV Last administered on 12/26/16 13:14; Start 12/26/16 at 13:15; Stop 12/26/16 at 13:16; Status DC Adenosine (Adenocard) 12 mg 1X ONCE IV Last administered on 12/26/16 13:08; Start 12/26/16 at 13:00; Stop 12/26/16 at 13:01; Status DC Verapamil HCl 180 mg 180 mg BID PO Last administered on 12/29/16 08:19; Start 12/26/16 at 21:00 Magnesium Sulfate/ Dextrose (Magnesium Sulfate PREMIX 2GM) 50 ml @ 25 mls/hr STAT ONCE IV Last administered on 12/26/16 13:55; Start 12/26/16 at 13:15; Stop 12/26/16 at 15:14; Status DC Ipratropium Lipan (Atrovent) 0.5 mg RTQID NEB Last administered on 12/27/16 11:40; Start 12/26/16 at 16:00; Stop 12/27/16 at 11:50; Status DC Digoxin (Lanoxin) 125 mcg DAILY PO Last administered on 12/27/16 13:22; Start 12/27/16 at 12:00; Stop 12/28/16 at 14:27; Status DC Albuterol/ Ipratropium (Duoneb) 3 ml RTQID NEB Last administered on 12/29/16 11:45; Start 12/27/16 at 12:00 Furosemide (Lasix) 40 mg 1X ONCE IVP Last administered on 12/28/16 06:49; Start 12/28/16 at 07:00; Stop 12/28/16 at 07:01; Status DC Methylprednisolone Sodium Succinate (Solu-Medrol 125mg Vial) 125 mg 1X ONCE IV Last administered on 12/28/16 08:39; Start 12/28/16 at 08:30; Stop 12/28/16 at 08:31; Status DC Furosemide (Lasix) 40 mg 1X ONCE IVP Last administered on 12/28/16 08:52; Start 12/28/16 at 09:00; Stop 12/28/16 at 09:01; Status DC Aspirin (Children'S Aspirin) 81 mg DAILYWBKFT PO Last administered on 08:20; Start 12/29/16 at 08:00 Clopidogrel Bisulfate (Plavix) 75 mg DAILYWBKFT PO Last administered on 08:20; Start 12/28/16 at 12:30 Digoxin (Lanoxin) 125 mcg DAILY IV Last administered on 12/29/16 08:21; Start 12/29/16 at 09:00 Digoxin (Lanoxin) 125 mcg 1X ONCE IV Last administered on 12/28/16 14:36; Start 12/28/16 at 14:30; Stop 12/28/16 at 14:31; Status DC Methylprednisolone Sodium Succinate (Solu-Medrol 40mg Vial) 40 mg Q8HRS IV Last administered on 12/29/16 05:42; Start 12/28/16 at 15:00 Furosemide (Lasix) 40 mg DAILY IVP ; Start 12/30/16 at 10:00 Pantoprazole Sodium 40 mg 40 mg DAILYAC IVP Last administered on 12/29/16 08: 19; Start 12/29/16 at 07:30 Levofloxacin/ Dextrose (LEVAQUIN 500mg PREMIX) 100 ml @ 100 mls/hr 1X ONCE IV Last administered on 12/28/16 15:22; Start 12/28/16 at 15:00; Stop 12/28/16 at 15:59; Status DC Levofloxacin/ Dextrose (Levaquin Per Pharmacy) 1 each PRN DAILY PRN MC SEE COMMENTS; Start 12/28/16 at 15:00 Diltiazem HCl 20 mg 20 mg 1X ONCE IVP ; Start 12/28/16 at 15:00; Stop 12/28/16 at 15:01; Status DC Levofloxacin/ Dextrose (LEVAQUIN 250mg PREMIX) 50 ml @ 50 mls/hr Q24H IV ; Start 12/29/16 at 15:00 Spironolactone (Aldactone) 25 mg DAILY PO ; Start 12/29/16 at 13:15 Lisinopril (Prinivil) 5 mg DAILY PO ; Start 12/29/16 at 13:15 Active Scripts Active Hydrocodone-Apap 10-325 (Hydrocodone Bit/Acetaminophen) 1 Each Tablet 1 Tab PO Q8HRS PRN Reported Prednisone 10 Mg Tablet 10 Mg PO DAILY Proair Hfa Inhaler (Albuterol Sulfate) 8.5 Gm Hfa.aer.ad 1 Puff INH PRN Q6HRS PRN Zolpidem Tartrate 10 Mg Tablet 1 Tab PO QHS Verapamil Er (Verapamil Hcl) 180 Mg Tablet.er 180 Mg PO DAILY Pantoprazole Sodium 40 Mg Tablet.dr 1 Tab PO DAILY [place] 3 Fish Oil Softgel ([place]-3 Fatty Acids/Fish Oil) 1 Each Capsule.dr 1 Each PO DAILY Multi-Vitamin Daily (Multivitamin) 1 Each Tablet 1 Each PO Isosorbide Mononitrate Er (Isosorbide Mononitrate) 60 Mg Tab.er.24h 1.5 Tab PO DAILY Gabapentin Oral Solution (Gabapentin) 300 Mg/6 Ml Solution 300 Mg PO HS Furosemide 80 Mg Tablet 1 Tab PO DAILY Colace (Docusate Sodium) 100 Mg Capsule 1 Cap PO DAILY Cyclobenzaprine Hcl 10 Mg Tablet 1 Tab PO QHS PRN Atorvastatin Calcium 80 Mg Tablet 1 Tab PO HS PRN Aspirin 325 Mg Tablet 1 Tab PO DAILY Xanax (Alprazolam) 1 Mg Tablet 1 Tab PO TID Mucus And Cough Relief Tablet (Guaifenesin/Dextromethorphan) 1 Each Tablet 1 Each PO Q4-6HRS PRN Potassium Chloride 20 Meq Tab.er.prt 1 Tab PO BID Sucralfate 1 Gm Tablet 1 Tab PO QID Vitals/I & O Vital Sign - Last 24 Hours 12/28/16 12/28/16 12/28/16 12/28/16 14:00 14:36 15:00 15:12 Pulse 108 156 150 Resp B/P 134/75 118/87 153/79 Pulse Ox 96 99 96 O2 Delivery BiPAP/CPAP BiPAP/CPAP BiPAP/CPAP 12/28/16 12/28/16 12/28/16 12/28/16 16:00 16:00 16:54 17:00 Temp 98.5 98.5 Pulse 104 100 Resp B/P 157/75 119/72 Pulse Ox 92 96 95 O2 Delivery Bi-pap BiPAP/CPAP BiPAP/CPAP BiPAP/CPAP 12/28/16 12/28/16 12/28/16 12/28/16 18:00 19:00 20:00 20:00 Temp 98.4 98.4 Pulse 97 102 102 Resp B/P 119/70 141/77 Pulse Ox 92 93 91 O2 Delivery BiPAP/CPAP BiPAP/CPAP Bi-pap BiPAP/CPAP 12/28/16 12/28/16 12/28/16 12/28/16 20:15 21:00 21:31 22:00 Pulse 98 102 96 Resp B/P 114/60 119/64 142/77 Pulse Ox 93 95 93 O2 Delivery BiPAP/CPAP BiPAP/CPAP BiPAP/CPAP 12/28/16 12/28/16 12/28/16 12/28/16 23:00 23:32 23:59 23:59 Temp 99.3 99.3 Pulse 100 106 Resp 26 37 B/P 132/69 126/80 Pulse Ox 95 90 89 O2 Delivery BiPAP/CPAP BiPAP/CPAP BiPAP/CPAP Bi-pap 12/29/16 12/29/16 12/29/16 12/29/16 01:00 01:45 02:00 03:00 Pulse 99 100 92 Resp 26 30 28 B/P 148/74 137/76 161/77 Pulse Ox 98 92 91 97 O2 Delivery BiPAP/CPAP BiPAP/CPAP BiPAP/CPAP BiPAP/CPAP 12/29/16 12/29/16 12/29/16 12/29/16 03:53 04:00 04:00 05:00 Temp 98.8 98.8 Pulse 95 90 Resp 30 26 B/P 150/95 145/71 Pulse Ox 90 94 O2 Delivery BiPAP/CPAP BiPAP/CPAP Bi-pap BiPAP/CPAP 12/29/16 12/29/16 12/29/16 12/29/16 05:32 06:00 07:00 07:11 Pulse 94 92 Resp 38 30 B/P 154/69 163/111 Pulse Ox 94 92 94 92 O2 Delivery BiPAP/CPAP BiPAP/CPAP BiPAP/CPAP BiPAP/CPAP 12/29/16 12/29/16 12/29/16 12/29/16 08:00 08:00 08:00 08:19 Temp 98.8 98.8 Pulse 97 93 Resp 28 B/P 160/78 160/78 Pulse Ox 95 O2 Delivery BiPAP/CPAP Bi-pap O2 Flow Rate 5.0 12/29/16 12/29/16 12/29/16 12/29/16 08:20 08:21 09:00 09:34 Pulse 89 93 102 Resp 30 22 B/P 160/78 160/78 128/74 Pulse Ox 92 93 O2 Delivery BiPAP/CPAP Nasal Cannula 12/29/16 12/29/16 10:00 11:48 Pulse 100 B/P 143/75 Pulse Ox 94 93 O2 Delivery BiPAP/CPAP BiPAP/CPAP Intake and Output 12/28/16 12/28/16 12/29/16 15:00 23:00 07:00 Intake Total 5 ml 150 ml 300 ml Output Total 875 ml 335 ml 470 ml Balance -870 ml -185 ml -170 ml HEYDI IGLESIAS MD Dec 29, 2016 13:39
[2016-12-29] MEDS: LISINOPRIL 5 MG TABLET. PO SCH (14:38)
[2016-12-29] MEDS: SPIRONOLACTONE 25 MG TABLET PO SCH (14:56)
[2016-12-29] MEDS: ATORVASTATIN CALCIUM 40 MG TABLET. PO SCH ×2 (20:32→20:53)
[2016-12-29] MEDS: GABAPENTIN 300 MG CAPSULE. PO SCH ×2 (20:32→20:53)
[2016-12-30] VITALS (24 sets, daily range): BP systolic 99–169; BP diastolic 49–73
[2016-12-30] MEDS: methylPREDNISolone SOD SUCC PF 40 MG/ML VIAL. IV SCH ×3 (06:20→21:28)
--- NOTE | 2016-12-30 07:04 | PDOC ---
PULMONARY PROGRESS NOTES Subjective refused bipap, on vm, 35%, has pain all over. has sob, cough, no runny nose Vitals Vital Signs Date Time Temp Pulse Resp B/P Pulse Ox O2 Delivery O2 Flow Rate FiO2 12/30/16 06:00 85 25 148/72 94 Venturi Mask 9.0 12/30/16 04:00 97.6 97.6 Comments ros as mentioned as above other sys otherwise neg. ROS: No Nausea, No Chest Pain, No Abdominal Pain, No Increase Cough General: Alert HEENT: Other (nc at, perrl, throat nose clear) Lungs: Other (bl rhonchis) Cardiovascular: S1, S2 Abdomen: Soft, Non-tender, Other ([place]) Neuro Exam: Alert Extremities: No Edema, Other Skin: Warm Labs Laboratory Tests Test 12/28/16 08:34 12/28/16 10:45 12/28/16 15:20 12/28/16 21:16 Arterial Blood pH 7.26 (7.35-7.45) 7.39 (7.35-7.45) Arterial Blood pCO2 at Patient Temp 87mmHg (35-46) 54mmHg (35-46) Arterial Blood pO2 at Patient Temp 73mmHg (65-108) 79mmHg (65-108) Arterial Blood HCO3 38mmol/L (21-28) 32mmol/L (21-28) Arterial Blood Base Excess 7mmol/L (-3-3) 6mmol/L (-3-3) FiO2 40 40 O2 Saturation 95% (92-99) Potassium Level 4.4mmol/L (3.5-5.1) Magnesium Level 2.1mg/dL (1.8-2.4) Nasal Screen MRSA (PCR) Negative (Negative) Test 12/29/16 08:00 12/29/16 09:40 O2 Saturation 93% (92-99) Arterial Blood pH 7.39 (7.35-7.45) Arterial Blood pCO2 at Patient Temp 57mmHg (35-46) Arterial Blood pO2 at Patient Temp 73mmHg (65-108) Arterial Blood HCO3 34mmol/L (21-28) Arterial Blood Base Excess 7mmol/L (-3-3) FiO2 50 White Blood Count 6.9x10^3/uL (4.0-11.0) Red Blood Count 4.87x10^6/uL (3.50-5.40) Hemoglobin 12.8g/dL (12.0-15.5) Hematocrit 39.8% (36.0-47.0) Mean Corpuscular Volume 82fL (79-100) Mean Corpuscular Hemoglobin 26pg (25-35) Mean Corpuscular Hemoglobin Concent 32g/dL (31-37) Red Cell Distribution Width 16.3% (11.5-14.5) Platelet Count 145x10^3/uL (140-400) Neutrophils (%) (Auto) 86% (31-73) Lymphocytes (%) (Auto) 5% (24-48) Monocytes (%) (Auto) 9% (0-9) Eosinophils (%) (Auto) 0% (0-3) Basophils (%) (Auto) 0% (0-3) Neutrophils # (Auto) 6.0x10^3uL (1.8-7.7) Lymphocytes # (Auto) 0.4x10^3/uL (1.0-4.8) Monocytes # (Auto) 0.6x10^3/uL (0.0-1.1) Eosinophils # (Auto) 0.0x10^3/uL (0.0-0.7) Basophils # (Auto) 0.0x10^3/uL (0.0-0.2) Sodium Level 144mmol/L (136-145) Potassium Level 3.9mmol/L (3.5-5.1) Chloride Level 102mmol/L (98-107) Carbon Dioxide Level 36mmol/L (21-32) Anion Gap 6 (6-14) Blood Urea Nitrogen 48mg/dL (7-20) Creatinine 1.0mg/dL (0.6-1.0) Estimated GFR (Cockcroft-Gault) 55.6 Glucose Level 123mg/dL (70-99) Calcium Level 9.0mg/dL (8.5-10.1) Laboratory Tests Test 12/29/16 08:00 12/29/16 09:40 O2 Saturation 93% (92-99) Arterial Blood pH 7.39 (7.35-7.45) Arterial Blood pCO2 at Patient Temp 57mmHg (35-46) Arterial Blood pO2 at Patient Temp 73mmHg (65-108) Arterial Blood HCO3 34mmol/L (21-28) Arterial Blood Base Excess 7mmol/L (-3-3) FiO2 50 White Blood Count 6.9x10^3/uL (4.0-11.0) Red Blood Count 4.87x10^6/uL (3.50-5.40) Hemoglobin 12.8g/dL (12.0-15.5) Hematocrit 39.8% (36.0-47.0) Mean Corpuscular Volume 82fL (79-100) Mean Corpuscular Hemoglobin 26pg (25-35) Mean Corpuscular Hemoglobin Concent 32g/dL (31-37) Red Cell Distribution Width 16.3% (11.5-14.5) Platelet Count 145x10^3/uL (140-400) Neutrophils (%) (Auto) 86% (31-73) Lymphocytes (%) (Auto) 5% (24-48) Monocytes (%) (Auto) 9% (0-9) Eosinophils (%) (Auto) 0% (0-3) Basophils (%) (Auto) 0% (0-3) Neutrophils # (Auto) 6.0x10^3uL (1.8-7.7) Lymphocytes # (Auto) 0.4x10^3/uL (1.0-4.8) Monocytes # (Auto) 0.6x10^3/uL (0.0-1.1) Eosinophils # (Auto) 0.0x10^3/uL (0.0-0.7) Basophils # (Auto) 0.0x10^3/uL (0.0-0.2) Sodium Level 144mmol/L (136-145) Potassium Level 3.9mmol/L (3.5-5.1) Chloride Level 102mmol/L (98-107) Carbon Dioxide Level 36mmol/L (21-32) Anion Gap 6 (6-14) Blood Urea Nitrogen 48mg/dL (7-20) Creatinine 1.0mg/dL (0.6-1.0) Estimated GFR (Cockcroft-Gault) 55.6 Glucose Level 123mg/dL (70-99) Calcium Level 9.0mg/dL (8.5-10.1) Medications Active Scripts Medications Dose Route/Sig Days Date Category Prednisone 10 Mg Tablet 10 Mg PO DAILY 09/13/16 Reported Proair Hfa Inhaler (Albuterol Sulfate) 8.5 Gm Hfa.aer.ad 1 Puff INH PRN Q6HRS PRN 08/01/16 Reported Hydrocodone-Apap 10-325 (Hydrocodone Bit/Acetaminophen) 1 Each Tablet 1 Tab PO Q8HRS PRN 07/19/16 Rx Zolpidem Tartrate 10 Mg Tablet 1 Tab PO QHS 10/31/15 Reported Verapamil Er (Verapamil Hcl) 180 Mg Tablet.er 180 Mg PO DAILY 10/31/15 Reported Pantoprazole Sodium 40 Mg Tablet.dr 1 Tab PO DAILY 10/31/15 Reported Halma 3 Fish Oil Softgel (Halma-3 Fatty Acids/Fish Oil) 1 Each Capsule.dr 1 Each PO DAILY 10/31/15 Reported Multi-Vitamin Daily (Multivitamin) 1 Each Tablet 1 Each PO 10/31/15 Reported Isosorbide Mononitrate Er (Isosorbide Mononitrate) 60 Mg Tab.er.24h 1.5 Tab PO DAILY 10/31/15 Reported Gabapentin Oral Solution (Gabapentin) 300 Mg/6 Ml Solution 300 Mg PO HS 10/31/15 Reported Furosemide 80 Mg Tablet 1 Tab PO DAILY 10/31/15 Reported Colace (Docusate Sodium) 100 Mg Capsule 1 Cap PO DAILY 10/31/15 Reported Cyclobenzaprine Hcl 10 Mg Tablet 1 Tab PO QHS PRN 10/31/15 Reported Atorvastatin Calcium 80 Mg Tablet 1 Tab PO HS PRN 10/31/15 Reported Aspirin 325 Mg Tablet 1 Tab PO DAILY 10/31/15 Reported Xanax (Alprazolam) 1 Mg Tablet 1 Tab PO TID 10/31/15 Reported Mucus And Cough Relief Tablet (Guaifenesin/Dextromethorphan) 1 Each Tablet 1 Each PO Q4-6HRS PRN 10/31/15 Reported Potassium Chloride 20 Meq Tab.er.prt 1 Tab PO BID 10/31/15 Reported Sucralfate 1 Gm Tablet 1 Tab PO QID 10/31/15 Reported Comments cxr reviewed, No acute cardiopulmonary abnormality is detected. Impression . 1. [id number] hypoxemic respiratory failure. 2. Mild acute exacerbation of chronic obstructive pulmonary disease. 3. Non-ST segment elevation, status post previous percutaneous coronary with two stents. 4. Coronary artery disease as described above. 5. Chronic obstructive pulmonary disease. 6. Gastroesophageal reflux. 7. Dementia. 8. Electrolytes abnormalities. 9. Chronic diastolic heart failure. 10. Peripheral arterial disease. 11. Nonspecific anxiety. Plan . o2 titration bronchodilator bipap prn, refusing. cont abx MAY NEED LTAC CONTINUE SAME START DIET ARTERIAL STUDY BELOW PER PCP ARTERIAL STUDY There is multifocal plaque seen throughout the vasculature of the bilateral legs. In addition there are monophasic waveforms seen bilaterally which can be seen with hemodynamically significant regions of narrowing. The bilateral peroneal arteries are not visualized therefore occlusion not excluded. Soft tissue edema is visualized discussed w rn, pt MATTHEW LEIJA MD Dec 30, 2016 07:04
[2016-12-30] MEDS: IPRATRPIUM/ALBUTEROL 0.5/2.5MG 3 ML NEBU. NEB SCH ×4 (07:25→19:55)
[2016-12-30] MEDS: PANTOPRAZOLE IV PUSH 40 MG VIAL. IVP SCH (07:27)
[2016-12-30] MEDS: CLOPIDOGREL BISULFATE 75 MG TABLET PO SCH (08:31)
[2016-12-30] MEDS: ASPIRIN 81 MG TAB.CHEW PO SCH (08:31)
[2016-12-30] MEDS: SPIRONOLACTONE 25 MG TABLET PO SCH ×2 (08:31→09:00)
[2016-12-30] MEDS: DIGOXIN 500 MCG/2 ML AMPUL. IV SCH (08:33)
[2016-12-30] MEDS: SUCRALFATE 1 GM TABLET. PO SCH ×7 (08:34→21:28)
[2016-12-30] MEDS: OMEGA-3 FATTY ACIDS/FISH OIL 1,000 MG CAPSULE. PO SCH (08:34)
[2016-12-30] MEDS: VERAPAMIL SR 180 MG TABLET.ER. PO SCH ×4 (08:34→21:28)
[2016-12-30] MEDS: POTASSIUM CHLORIDE 20 MEQ TABLET.ER. PO SCH ×4 (08:35→21:27)
[2016-12-30] MEDS: LISINOPRIL 5 MG TABLET. PO SCH ×2 (08:35→09:00)
[2016-12-30] MEDS: ISOSORBIDE MONONITRATE ER 60 MG TAB.ER.24H PO SCH ×2 (08:35→09:00)
[2016-12-30] MEDS: DOCUSATE SODIUM 100 MG CAPSULE PO SCH ×2 (08:35→09:00)
[2016-12-30 09:14] LABS: HCO3 ABG 30 mmol/L (21-28); PCO2 ABG 53 mmHg (35-46); PH ABG 7.37 (7.35-7.45); PO2 ABG 67 mmHg (65-108); SAT O2 ABG 91 % (92-99)
[2016-12-30] MEDS: ALPRAZOLAM 0.5 MG TABLET PO SCH ×4 (09:27→21:27)
[2016-12-30] MEDS: FUROSEMIDE 40 MG/4 ML VIAL IVP SCH (09:30)
[2016-12-30 09:51] LABS: FIO2 ABG 35
[2016-12-30] MEDS: AA 3%/ELECTROLYTE-TPN SOLN/GLY 1,000 ML IV SCH (11:46)
[2016-12-30 12:35] LABS: CALCIUM 9.4 mg/dL (8.5-10.1); CREATININE 1.2 mg/dL (0.6-1.0); GFR 45.1; POTASSIUM 3.6 mmol/L (3.5-5.1)
--- NOTE | 2016-12-30 12:59 | PDOC ---
PROGRESS NOTES Subjective Subjective Patient seen and examined. Refusing BiPAP Objective Objective Vital Signs Date Time Temp Pulse Resp B/P Pulse Ox O2 Delivery O2 Flow Rate FiO2 12/30/16 12:00 97.9 92 24 119/58 40 Venturi Mask 12.0 97.9 Intake and Output 12/30/16 07:00 Intake Total 250 ml Output Total 1010 ml Balance -760 ml Intake Oral 150 ml IV Total 100 ml Output Urine Total 1010 ml Physical Exam Abdomen: Normal bowel sounds Heart: Regular rate General: mild distress Lungs: Other (decreased breath sounds) Assessment Assessment Problems Medical Problems: (1) Atrial fibrillation with RVR Status: Acute (2) Cardiac ischemia Status: Acute (3) COPD exacerbation Status: Acute Assessment 1. atrial dysrhythmia. mildly improved. 2. acute on chronic systolic heart failure. mildly improved 3. NICM 4. Acute on Chronic Respiratory Failure 5. NSTEMI s/p cath with no obstructive CAD 6. Hypertension 7. Peripheral artery disease Recommendations Continues to have intermittent PAFIB. Rate presently controlled. Dysrhythmias likely respiratory inducted Continue dig and verapamil for rate control. If further PSVT occurs, will use short-term Amiodarone for rate/rhythm control. Add RESHMA for HF optimization Continue supportive care Management of respiratory failure per pulmonary. Comment Review of Relevant I have reviewed the following items claudia (where applicable) has been applied. Labs Laboratory Tests Test 12/28/16 15:20 12/28/16 21:16 12/29/16 08:00 12/29/16 09:40 Potassium Level 4.4mmol/L (3.5-5.1) 3.9mmol/L (3.5-5.1) Magnesium Level 2.1mg/dL (1.8-2.4) Nasal Screen MRSA (PCR) Negative (Negative) O2 Saturation 93% (92-99) Arterial Blood pH 7.39 (7.35-7.45) Arterial Blood pCO2 at Patient Temp 57mmHg (35-46) Arterial Blood pO2 at Patient Temp 73mmHg (65-108) Arterial Blood HCO3 34mmol/L (21-28) Arterial Blood Base Excess 7mmol/L (-3-3) FiO2 50 White Blood Count 6.9x10^3/uL (4.0-11.0) Red Blood Count 4.87x10^6/uL (3.50-5.40) Hemoglobin 12.8g/dL (12.0-15.5) Hematocrit 39.8% (36.0-47.0) Mean Corpuscular Volume 82fL (79-100) Mean Corpuscular Hemoglobin 26pg (25-35) Mean Corpuscular Hemoglobin Concent 32g/dL (31-37) Red Cell Distribution Width 16.3% (11.5-14.5) Platelet Count 145x10^3/uL (140-400) Neutrophils (%) (Auto) 86% (31-73) Lymphocytes (%) (Auto) 5% (24-48) Monocytes (%) (Auto) 9% (0-9) Eosinophils (%) (Auto) 0% (0-3) Basophils (%) (Auto) 0% (0-3) Neutrophils # (Auto) 6.0x10^3uL (1.8-7.7) Lymphocytes # (Auto) 0.4x10^3/uL (1.0-4.8) Monocytes # (Auto) 0.6x10^3/uL (0.0-1.1) Eosinophils # (Auto) 0.0x10^3/uL (0.0-0.7) Basophils # (Auto) 0.0x10^3/uL (0.0-0.2) Sodium Level 144mmol/L (136-145) Chloride Level 102mmol/L (98-107) Carbon Dioxide Level 36mmol/L (21-32) Anion Gap 6 (6-14) Blood Urea Nitrogen 48mg/dL (7-20) Creatinine 1.0mg/dL (0.6-1.0) Estimated GFR (Cockcroft-Gault) 55.6 Glucose Level 123mg/dL (70-99) Calcium Level 9.0mg/dL (8.5-10.1) Test 12/30/16 08:00 12/30/16 12:00 O2 Saturation 91% (92-99) Arterial Blood pH 7.37 (7.35-7.45) Arterial Blood pCO2 at Patient Temp 53mmHg (35-46) Arterial Blood pO2 at Patient Temp 67mmHg (65-108) Arterial Blood HCO3 30mmol/L (21-28) Arterial Blood Base Excess 4mmol/L (-3-3) FiO2 35 Sodium Level 145mmol/L (136-145) Potassium Level 3.6mmol/L (3.5-5.1) Chloride Level 100mmol/L (98-107) Carbon Dioxide Level 38mmol/L (21-32) Anion Gap 7 (6-14) Blood Urea Nitrogen 71mg/dL (7-20) Creatinine 1.2mg/dL (0.6-1.0) Estimated GFR (Cockcroft-Gault) 45.1 Glucose Level 136mg/dL (70-99) Calcium Level 9.4mg/dL (8.5-10.1) Laboratory Tests Test 12/30/16 08:00 12/30/16 12:00 O2 Saturation 91% (92-99) Arterial Blood pH 7.37 (7.35-7.45) Arterial Blood pCO2 at Patient Temp 53mmHg (35-46) Arterial Blood pO2 at Patient Temp 67mmHg (65-108) Arterial Blood HCO3 30mmol/L (21-28) Arterial Blood Base Excess 4mmol/L (-3-3) FiO2 35 Sodium Level 145mmol/L (136-145) Potassium Level 3.6mmol/L (3.5-5.1) Chloride Level 100mmol/L (98-107) Carbon Dioxide Level 38mmol/L (21-32) Anion Gap 7 (6-14) Blood Urea Nitrogen 71mg/dL (7-20) Creatinine 1.2mg/dL (0.6-1.0) Estimated GFR (Cockcroft-Gault) 45.1 Glucose Level 136mg/dL (70-99) Calcium Level 9.4mg/dL (8.5-10.1) Medications Current Medications Albuterol/ Ipratropium 3 ml 3 ml 1X ONCE NEB Last administered on 12/25/16 05 :49; Start 12/25/16 at 05:30; Stop 12/25/16 at 05:31; Status DC Sodium Chloride (Iv Sodium Chloride 0.9% 500ml Bag) 500 ml @ 500 mls/hr 1X ONCE IV Last administered on 12/25/16 06:09; Start 12/25/16 at 06:15; Stop at 07:14; Status DC Diltiazem HCl 20 mg 20 mg 1X ONCE IVP Last administered on 12/25/16 06:30; Start 12/25/16 at 06:30; Stop 12/25/16 at 15:01; Status DC Diltiazem HCl/ Dextrose (Cardizem) 125 ml @ 10 mls/hr 1X ONCE IV Last administered on 12/25/16 06:30; Start 12/25/16 at 06:30; Stop 12/25/16 at 15:01 ; Status DC Albuterol/ Ipratropium (Duoneb) 3 ml QID NEB Last administered on 12/25/16 13: 05; Start 12/25/16 at 13:30; Stop 12/25/16 at 14:46; Status DC Aspirin ([place] Aspirin) 325 mg DAILY PO Last administered on 12/27/16 07:56; Start 12/25/16 at 15:30; Stop 12/28/16 at 12:29; Status DC Furosemide (Lasix) 80 mg DAILY PO Last administered on 12/27/16 07:56; Start 12/25/16 at 15:30; Stop 12/28/16 at 14:50; Status DC Isosorbide Mononitrate (Imdur) 60 mg DAILY PO Last administered on 12/30/16 09 :00; Start 12/25/16 at 15:30 Pantoprazole Sodium (Protonix) 40 mg DAILY PO Last administered on 12/27/16 07 :56; Start 12/25/16 at 15:30; Stop 12/28/16 at 14:50; Status DC Potassium Chloride (Klor-Con) 20 meq BID PO Last administered on 12/29/16 08: 22; Start 12/25/16 at 21:00 Atorvastatin Calcium (Lipitor) 80 mg QHS PO Last administered on 12/28/16 21: 32; Start 12/25/16 at 21:00 Potassium Chloride (Klor-Con) 40 meq 1X ONCE PO Last administered on 15:49; Start 12/25/16 at 15:00; Stop 12/25/16 at 15:01; Status DC Albuterol/ Ipratropium 3 ml 3 ml RTQID NEB Last administered on 12/26/16 12:27 ; Start 12/25/16 at 16:00; Stop 12/26/16 at 15:35; Status DC Heparin Sodium/ Dextrose 500 ml @ 0 mls/hr CONT PRN IV SEE I/O RECORD Last administered on 12/25/16 16:00; Start 12/25/16 at 15:00; Stop 12/27/16 at 16:54 ; Status DC Heparin Sodium (Porcine) 1,900 unit PRN Q6HRS PRN IV FOR UFH LEVEL LESS THAN 0.2; Start 12/25/16 at 15:00; Stop 12/27/16 at 16:54; Status DC Diltiazem HCl (Cardizem 24hr Cd) 180 mg DAILY PO Last administered on 08:30; Start 12/25/16 at 15:30; Stop 12/26/16 at 13:17; Status DC Info 1 each 1 each PRN DAILY PRN MC SEE COMMENTS Last administered on 13:01; Start 12/25/16 at 15:15; Stop 12/28/16 at 12:31; Status DC Magnesium Sulfate/ Dextrose (Magnesium Sulfate PREMIX 2GM) 50 ml @ 25 mls/hr 1X ONCE IV Last administered on 12/25/16 17:38; Start 12/25/16 at 17:30; Stop 12/25/16 at 19:29; Status DC Albuterol Sulfate (Ventolin Neb Soln) 2.5 mg PRN Q4HRS PRN NEB SHORTNESS OF BREATH Last administered on 12/28/16 15:12; Start 12/25/16 at 17:15; Stop 12/30 at 13:00 Lorazepam (Ativan) 0.5 mg PRN Q8HRS PRN PO ANXIETY / AGITATION Last administered on 12/29/16 01:53; Start 12/25/16 at 17:15 Potassium Chloride 40 meq 40 meq 1X ONCE PO Last administered on 12/26/16 06: 34; Start 12/26/16 at 06:00; Stop 12/26/16 at 06:01; Status DC Potassium Chloride (KCl Premix 10meq) 100 ml @ 100 mls/hr Q1H IV Last administered on 12/26/16 15:29; Start 12/26/16 at 06:00; Stop 12/26/16 at 09:59 ; Status DC Hydralazine HCl (Apresoline) 10 mg PRN Q4HRS PRN IVP ELEVATED BP, SEE COMMENTS Last administered on 12/26/16 11:08; Start 12/26/16 at 08:45 Alprazolam (Xanax) 0.5 mg TID PO Last administered on 12/30/16 09:27; Start at 10:00 Cyclobenzaprine HCl (Flexeril) 10 mg PRN QHS PRN PO MUSCLE SPASMS Last administered on 12/27/16 13:21; Start 12/26/16 at 09:30 Docusate Sodium (Colace) 100 mg DAILY PO Last administered on 12/29/16 08:23; Start 12/26/16 at 10:00 Acetaminophen/ Hydrocodone Bitart (Lortab 10/325) 1 tab PRN Q8HRS PRN PO PAIN Last administered on 12/29/16 19:54; Start 12/26/16 at 09:30 Prednisone (Prednisone) 10 mg DAILY PO Last administered on 12/27/16 07:56; Start 12/26/16 at 10:00; Stop 12/28/16 at 14:50; Status DC Verapamil HCl (Calan Sr) 180 mg DAILY PO Last administered on 12/26/16 10:12; Start 12/26/16 at 10:00; Stop 12/26/16 at 13:17; Status DC Gabapentin (Neurontin) 300 mg QHS PO Last administered on 12/28/16 21:29; Start 12/26/16 at 21:00 Guaifenesin (Mucinex) 600 mg PRN BID PRN PO CONGESTION Last administered on 20:38; Start 12/26/16 at 21:00 Fish Oil (Fish Oil) 1,000 mg DAILY PO Last administered on 12/30/16 08:34; Start 12/26/16 at 10:00 Sucralfate (Carafate) 1 gm QID PO Last administered on 12/29/16 14:45; Start 12/26/16 at 13:00 Albuterol Sulfate (Ventolin Neb Soln) 2.5 mg PRN Q4HRS PRN NEB SHORTNESS OF BREATH; Start 12/26/16 at 09:30; Status Cancel Iohexol 100 ml 100 ml STK-MED ONCE .ROUTE ; Start 12/26/16 at 10:51; Stop at 10:52; Status DC Heparin Sodium/ Sodium Chloride 1,000 ml @ As Directed STK-MED ONCE .ROUTE ; Start 12/26/16 at 10:51; Stop 12/26/16 at 10:52; Status DC Lidocaine HCl 20 ml STK-MED ONCE .ROUTE ; Start 12/26/16 at 10:52; Stop at 10:53; Status DC Nitroglycerin (Nitroglycerin) 200 mcg STK-MED ONCE .ROUTE ; Start 12/26/16 at 11 :19; Stop 12/26/16 at 11:20; Status DC Verapamil HCl (Verapamil) 5 mg STK-MED ONCE .ROUTE ; Start 12/26/16 at 11:19; Stop 12/26/16 at 11:20; Status DC Heparin Sodium (Porcine) 10,000 unit STK-MED ONCE .ROUTE ; Start 12/26/16 at 11: 19; Stop 12/26/16 at 11:20; Status DC Fentanyl Citrate (Fentanyl 2ml Vial) 100 mcg STK-MED ONCE .ROUTE ; Start at 11:19; Stop 12/26/16 at 11:20; Status DC Midazolam HCl (Versed) 5 mg STK-MED ONCE .ROUTE ; Start 12/26/16 at 11:19; Stop 12/26/16 at 11:20; Status DC Nitroglycerin (Nitroglycerin) 200 mcg 1X ONCE IART Last administered on 11:30; Start 12/26/16 at 11:30; Stop 12/26/16 at 11:38; Status DC Verapamil HCl (Verapamil) 2.5 mg 1X ONCE IART Last administered on 12/26/16 11:30; Start 12/26/16 at 11:30; Stop 12/26/16 at 11:38; Status DC Heparin Sodium (Porcine) 2,500 unit 1X ONCE IART Last administered on 11:55; Start 12/26/16 at 11:30; Stop 12/26/16 at 11:38; Status DC Heparin Sodium/ Sodium Chloride 1,000 unit 1X ONCE IART Last administered on 11:54; Start 12/26/16 at 11:30; Stop 12/26/16 at 11:38; Status DC Midazolam HCl (Versed) 5 mg 1X ONCE IV Last administered on 12/26/16 11:52; Start 12/26/16 at 11:30; Stop 12/26/16 at 11:38; Status DC Fentanyl Citrate (Fentanyl 2ml Vial) 100 mcg 1X ONCE IV Last administered on 11:53; Start 12/26/16 at 11:30; Stop 12/26/16 at 11:38; Status DC Iohexol (Omnipaque 300 Mg/ml) 100 ml 1X ONCE IART Last administered on 11:53; Start 12/26/16 at 11:30; Stop 12/26/16 at 11:38; Status DC Lidocaine HCl 20 ml 1X ONCE IJ Last administered on 12/26/16 11:52; Start at 11:30; Stop 12/26/16 at 11:38; Status DC Clopidogrel Bisulfate (Plavix) 75 mg STK-MED ONCE .ROUTE ; Start 12/26/16 at 12: 00; Stop 12/26/16 at 12:01; Status DC Clopidogrel Bisulfate (Plavix) 600 mg 1X ONCE PO Last administered on 12:03; Start 12/26/16 at 12:15; Stop 12/26/16 at 12:16; Status DC Digoxin (Lanoxin) 500 mcg 1X ONCE IV Last administered on 12/26/16 13:14; Start 12/26/16 at 13:15; Stop 12/26/16 at 13:16; Status DC Adenosine (Adenocard) 12 mg 1X ONCE IV Last administered on 12/26/16 13:08; Start 12/26/16 at 13:00; Stop 12/26/16 at 13:01; Status DC Verapamil HCl 180 mg 180 mg BID PO Last administered on 12/29/16 08:19; Start 12/26/16 at 21:00 Magnesium Sulfate/ Dextrose (Magnesium Sulfate PREMIX 2GM) 50 ml @ 25 mls/hr STAT ONCE IV Last administered on 12/26/16 13:55; Start 12/26/16 at 13:15; Stop 12/26/16 at 15:14; Status DC Ipratropium [place] (Atrovent) 0.5 mg RTQID NEB Last administered on 12/27/16 11:40; Start 12/26/16 at 16:00; Stop 12/27/16 at 11:50; Status DC Digoxin (Lanoxin) 125 mcg DAILY PO Last administered on 12/27/16 13:22; Start 12/27/16 at 12:00; Stop 12/28/16 at 14:27; Status DC Albuterol/ Ipratropium (Duoneb) 3 ml RTQID NEB Last administered on 12/30/16 11:40; Start 12/27/16 at 12:00 Furosemide (Lasix) 40 mg 1X ONCE IVP Last administered on 12/28/16 06:49; Start 12/28/16 at 07:00; Stop 12/28/16 at 07:01; Status DC Methylprednisolone Sodium Succinate (Solu-Medrol 125mg Vial) 125 mg 1X ONCE IV Last administered on 12/28/16 08:39; Start 12/28/16 at 08:30; Stop 12/28/16 at 08:31; Status DC Furosemide (Lasix) 40 mg 1X ONCE IVP Last administered on 12/28/16 08:52; Start 12/28/16 at 09:00; Stop 12/28/16 at 09:01; Status DC Aspirin (Children'S Aspirin) 81 mg [id number] PO Last administered on 08:31; Start 12/29/16 at 08:00 Clopidogrel Bisulfate (Plavix) 75 mg DAILYWBKFT PO Last administered on 08:31; Start 12/28/16 at 12:30 Digoxin (Lanoxin) 125 mcg DAILY IV Last administered on 12/30/16 08:33; Start 12/29/16 at 09:00 Digoxin (Lanoxin) 125 mcg 1X ONCE IV Last administered on 12/28/16 14:36; Start 12/28/16 at 14:30; Stop 12/28/16 at 14:31; Status DC Methylprednisolone Sodium Succinate (Solu-Medrol 40mg Vial) 40 mg Q8HRS IV Last administered on 12/30/16 06:20; Start 12/28/16 at 15:00 Furosemide (Lasix) 40 mg DAILY IVP Last administered on 12/30/16 09:30; Start 12/30/16 at 10:00 Pantoprazole Sodium 40 mg 40 mg DAILYAC IVP Last administered on 12/30/16 07: 27; Start 12/29/16 at 07:30 Levofloxacin/ Dextrose (LEVAQUIN 500mg PREMIX) 100 ml @ 100 mls/hr 1X ONCE IV Last administered on 12/28/16 15:22; Start 12/28/16 at 15:00; Stop 12/28/16 at 15:59; Status DC Levofloxacin/ Dextrose (Levaquin Per Pharmacy) 1 each PRN DAILY PRN MC SEE COMMENTS; Start 12/28/16 at 15:00 Diltiazem HCl 20 mg 20 mg 1X ONCE IVP ; Start 12/28/16 at 15:00; Stop 12/28/16 at 15:01; Status DC Levofloxacin/ Dextrose (LEVAQUIN 250mg PREMIX) 50 ml @ 50 mls/hr Q24H IV Last administered on 12/29/16 14:38; Start 12/29/16 at 15:00; Stop 12/29/16 at 16:42 ; Status DC Spironolactone (Aldactone) 25 mg DAILY PO Last administered on 12/29/16 14:56 ; Start 12/29/16 at 13:15 Lisinopril 5 mg 5 mg DAILY PO Last administered on 12/29/16 14:38; Start 12/29 at 13:15 Levofloxacin/ Dextrose 100 ml @ 100 mls/hr Q24H IV ; Start 12/30/16 at 16:00 Amino Acids/ Glycerin/ Electrolytes (Procalamine) 1,000 ml @ 60 mls/hr [id number] IV Last administered on 12/30/16 11:46; Start 12/30/16 at 10:15 Albuterol Sulfate (Ventolin Neb Soln) 2.5 mg QID NEB ; Start 12/30/16 at 13:00 Active Scripts Active Hydrocodone-Apap 10-325 (Hydrocodone Bit/Acetaminophen) 1 Each Tablet 1 Tab PO Q8HRS PRN Reported Prednisone 10 Mg Tablet 10 Mg PO DAILY Proair Hfa Inhaler (Albuterol Sulfate) 8.5 Gm Hfa.aer.ad 1 Puff INH PRN Q6HRS PRN Zolpidem Tartrate 10 Mg Tablet 1 Tab PO QHS Verapamil Er (Verapamil Hcl) 180 Mg Tablet.er 180 Mg PO DAILY Pantoprazole Sodium 40 Mg Tablet. 1 Tab PO DAILY [place] 3 Fish Oil Softgel ([place]-3 Fatty Acids/Fish Oil) 1 Each Capsule.dr 1 Each PO DAILY Multi-Vitamin Daily (Multivitamin) 1 Each Tablet 1 Each PO Isosorbide Mononitrate Er (Isosorbide Mononitrate) 60 Mg Tab.er.24h 1.5 Tab PO DAILY Gabapentin Oral Solution (Gabapentin) 300 Mg/6 Ml Solution 300 Mg PO HS Furosemide 80 Mg Tablet 1 Tab PO DAILY Colace (Docusate Sodium) 100 Mg Capsule 1 Cap PO DAILY Cyclobenzaprine Hcl 10 Mg Tablet 1 Tab PO QHS PRN Atorvastatin Calcium 80 Mg Tablet 1 Tab PO HS PRN Aspirin 325 Mg Tablet 1 Tab PO DAILY Xanax (Alprazolam) 1 Mg Tablet 1 Tab PO TID Mucus And Cough Relief Tablet (Guaifenesin/Dextromethorphan) 1 Each Tablet 1 Each PO Q4-6HRS PRN Potassium Chloride 20 Meq Tab.er.prt 1 Tab PO BID Sucralfate 1 Gm Tablet 1 Tab PO QID Vitals/I & O Vital Sign - Last 24 Hours 12/29/16 12/29/16 12/29/16 12/29/16 13:00 14:00 14:38 15:00 Pulse 96 94 96 96 Resp 28 32 28 B/P 125/70 138/69 138/69 164/78 Pulse Ox 96 94 94 O2 Delivery BiPAP/CPAP Venturi Mask BiPAP/CPAP O2 Flow Rate 10.0 12/29/16 12/29/16 12/29/16 12/29/16 16:00 16:00 16:01 17:00 Temp 98.6 98.6 Pulse 96 96 B/P 124/72 94/55 Pulse Ox 93 95 93 O2 Delivery Bi-pap BiPAP/CPAP BiPAP/CPAP BiPAP/CPAP O2 Flow Rate 10.0 12/29/16 12/29/16 12/29/16 12/29/16 18:25 19:00 19:27 19:54 Pulse 92 Resp 20 24 B/P 90/56 Pulse Ox 97 99 99 98 O2 Delivery BiPAP/CPAP BiPAP/CPAP BiPAP/CPAP BiPAP/CPAP 12/29/1612/29/17 217 12/29/16 20:00 20:00 20:33 21:00 Temp 98.5 98.5 Pulse 86 94 90 Resp 24 25 B/P 97/72 97/72 87/45 Pulse Ox 95 98 O2 Delivery BiPAP/CPAP Bi-pap BiPAP/CPAP 12/29/16 2 2/ 2 21:40 22:00 22:02 23:00 Pulse 84 82 Resp 25 25 B/P 92/40 90/45 Pulse Ox 98 98 98 99 O2 Delivery BiPAP/CPAP BiPAP/CPAP BiPAP/CPAP BiPAP/CPAP 12/29/ 2/ 2/ 2 23:33 00:00 00:00 01:00 Temp 97.8 97.8 Pulse 85 79 Resp 28 B/P 111/61 103/56 Pulse Ox 99 98 94 O2 Delivery BiPAP/CPAP Venturi Mask Venturi Mask Venturi Mask O2 Flow Rate 9.0 9.0 9.0 12/30/17 2/18/17 2/18/17 2 02:00 03:00 04:00 04:00 Temp 97.6 97.6 Pulse 84 92 82 Resp 30 23 B/P 121/70 117/54 132/61 Pulse Ox 97 94 95 O2 Delivery Venturi Mask Venturi Mask Venturi Mask Venturi Mask O2 Flow Rate 9.0 9.0 9.0 9.0 18/17 2/18/17 2/18/17 2 05:00 06:00 07:00 07:27 Temp 98.2 98.2 Pulse 83 85 84 Resp 25 B/P 131/73 148/72 169/73 Pulse Ox 95 94 40 90 O2 Delivery Venturi Mask Venturi Mask Venturi Mask Venturi Mask O2 Flow Rate 9.0 9.0 12.0 9.0 2/18/17 2/18/17 2/18/17 218/17 08:00 08:00 08:33 09:00 Pulse 91 87 87 Resp 25 B/P 138/66 138/66 138/66 Pulse Ox 40 O2 Delivery Venturi Mask Venturi Mask O2 Flow Rate 12.0 12.0 2/18/17 2/18/17 2/18/17 2/18/17 09:00 10:00 11:00 11:42 Pulse 94 91 93 Resp 27 26 24 B/P 144/68 135/71 111/70 Pulse Ox 40 40 40 93 O2 Delivery Venturi Mask Venturi Mask Venturi Mask Venturi Mask O2 Flow Rate 12.0 12.0 12.0 12.0 12/30/16 12:00 Temp 97.9 97.9 Pulse 92 Resp 24 B/P 119/58 Pulse Ox 40 O2 Delivery Venturi Mask O2 Flow Rate 12.0 Intake and Output 12/29/16 12/29/16 12/30/16 15:00 23:00 07:00 Intake Total 150 ml 100 ml Output Total 425 ml 175 ml 410 ml Balance -275 ml -75 ml -410 ml ANKIT ROBERTS MD Dec 30, 2016 12:59
[2016-12-30] MEDS ORDERED: ALBUTEROL SULFATE 2.5 MG/3 ML NEBU. NEB SCH (13:00)
--- NOTE | 2016-12-30 13:31 | PDOC ---
PROGRESS NOTES Chief Complaint Chief Complaint 1. ACUTE on chronic hypoxic resp failure with COPD, CHF 2. NSTEMI s/p PCI with 2 stents 3. COPD 4. H/O CAD 5. htn 6.hld 7. GERD 8. DEmentia, mild 9. chronic back and knee pain 10. hypokalemia 11. hyomagnesemia 12. thrombocytopenia 13. rapid afib 14. systolic CHF exacerbation EF 255 15. SVT POST cath 16. PAD 17 rapid afib PLAN: .1. fu with card. post Cath , fu pulm 2. cont home meds 3. off cardizem, on dig and verapimil. ON ASA, plavix, lipitor 4.transfer to ICU ON 12/28 WITH RESP FAIlure, need bipap. add solumedrol, levaquin, on duoneb, BIPAP as needed dig iv now, will give amiodarone if needed as per card low rate of PPN for now since cannot eat with resp failure gi ppx replete K consider LTAC if not improving in next 48h, pt refuse bipap History of Present Illness History of Present Illness post cath on 12/26, 2 stents SVT at night, got adenosine 2 times, then dig sob, home o2 2.5L, now VENTIMARSK, refuse bipap very sob on 12/28 am, desat, got ABG, CXR, lasix iv ,PCO2 86 TRANSFER TO icu, still need bipap rapid afib, better refuse bipap on night of 12/29, ABG ok on 12/30 , on venti mask, canot eat since low Sat Vitals Vitals Vital Signs Date Time Temp Pulse Resp B/P Pulse Ox O2 Delivery O2 Flow Rate FiO2 12/30/16 12:00 97.9 92 24 119/58 40 Venturi Mask 12.0 97.9 Physical Exam General: mild distress Heart: Regular rate Lungs: Other (bl rhonchis) Abdomen: Normal bowel sounds Extremities: Other (right foot mottling, bilateral posterior tibial and left DP pulses detected by doppler. unable to detect right DP pulse, 1+ bilateral LE edema. chronic venous stasis changes bi LE) Skin: No significant lesion Labs LABS Laboratory Tests Test 12/30/16 08:00 12/30/16 12:00 O2 Saturation 91% (92-99) Arterial Blood pH 7.37 (7.35-7.45) Arterial Blood pCO2 at Patient Temp 53mmHg (35-46) Arterial Blood pO2 at Patient Temp 67mmHg (65-108) Arterial Blood HCO3 30mmol/L (21-28) Arterial Blood Base Excess 4mmol/L (-3-3) FiO2 35 Sodium Level 145mmol/L (136-145) Potassium Level 3.6mmol/L (3.5-5.1) Chloride Level 100mmol/L (98-107) Carbon Dioxide Level 38mmol/L (21-32) Anion Gap 7 (6-14) Blood Urea Nitrogen 71mg/dL (7-20) Creatinine 1.2mg/dL (0.6-1.0) Estimated GFR (Cockcroft-Gault) 45.1 Glucose Level 136mg/dL (70-99) Calcium Level 9.4mg/dL (8.5-10.1) Review of Systems Review of Systems no fever, chills, chest pain Assessment and Plan Assessmemt and Plan Problems Medical Problems: (1) Atrial fibrillation with RVR Status: Acute (2) Cardiac ischemia Status: Acute (3) COPD exacerbation Status: Acute Problems: Comment Review of Relevant I have reviewed the following items claudia (where applicable) has been applied. Labs Laboratory Tests Test 12/28/16 15:20 12/28/16 21:16 12/29/16 08:00 12/29/16 09:40 Potassium Level 4.4mmol/L (3.5-5.1) 3.9mmol/L (3.5-5.1) Magnesium Level 2.1mg/dL (1.8-2.4) Nasal Screen MRSA (PCR) Negative (Negative) O2 Saturation 93% (92-99) Arterial Blood pH 7.39 (7.35-7.45) Arterial Blood pCO2 at Patient Temp 57mmHg (35-46) Arterial Blood pO2 at Patient Temp 73mmHg (65-108) Arterial Blood HCO3 34mmol/L (21-28) Arterial Blood Base Excess 7mmol/L (-3-3) FiO2 50 White Blood Count 6.9x10^3/uL (4.0-11.0) Red Blood Count 4.87x10^6/uL (3.50-5.40) Hemoglobin 12.8g/dL (12.0-15.5) Hematocrit 39.8% (36.0-47.0) Mean Corpuscular Volume 82fL (79-100) Mean Corpuscular Hemoglobin 26pg (25-35) Mean Corpuscular Hemoglobin Concent 32g/dL (31-37) Red Cell Distribution Width 16.3% (11.5-14.5) Platelet Count 145x10^3/uL (140-400) Neutrophils (%) (Auto) 86% (31-73) Lymphocytes (%) (Auto) 5% (24-48) Monocytes (%) (Auto) 9% (0-9) Eosinophils (%) (Auto) 0% (0-3) Basophils (%) (Auto) 0% (0-3) Neutrophils # (Auto) 6.0x10^3uL (1.8-7.7) Lymphocytes # (Auto) 0.4x10^3/uL (1.0-4.8) Monocytes # (Auto) 0.6x10^3/uL (0.0-1.1) Eosinophils # (Auto) 0.0x10^3/uL (0.0-0.7) Basophils # (Auto) 0.0x10^3/uL (0.0-0.2) Sodium Level 144mmol/L (136-145) Chloride Level 102mmol/L (98-107) Carbon Dioxide Level 36mmol/L (21-32) Anion Gap 6 (6-14) Blood Urea Nitrogen 48mg/dL (7-20) Creatinine 1.0mg/dL (0.6-1.0) Estimated GFR (Cockcroft-Gault) 55.6 Glucose Level 123mg/dL (70-99) Calcium Level 9.0mg/dL (8.5-10.1) Test 12/30/16 08:00 12/30/16 12:00 O2 Saturation 91% (92-99) Arterial Blood pH 7.37 (7.35-7.45) Arterial Blood pCO2 at Patient Temp 53mmHg (35-46) Arterial Blood pO2 at Patient Temp 67mmHg (65-108) Arterial Blood HCO3 30mmol/L (21-28) Arterial Blood Base Excess 4mmol/L (-3-3) FiO2 35 Sodium Level 145mmol/L (136-145) Potassium Level 3.6mmol/L (3.5-5.1) Chloride Level 100mmol/L (98-107) Carbon Dioxide Level 38mmol/L (21-32) Anion Gap 7 (6-14) Blood Urea Nitrogen 71mg/dL (7-20) Creatinine 1.2mg/dL (0.6-1.0) Estimated GFR (Cockcroft-Gault) 45.1 Glucose Level 136mg/dL (70-99) Calcium Level 9.4mg/dL (8.5-10.1) Laboratory Tests Test 12/30/16 08:00 12/30/16 12:00 O2 Saturation 91% (92-99) Arterial Blood pH 7.37 (7.35-7.45) Arterial Blood pCO2 at Patient Temp 53mmHg (35-46) Arterial Blood pO2 at Patient Temp 67mmHg (65-108) Arterial Blood HCO3 30mmol/L (21-28) Arterial Blood Base Excess 4mmol/L (-3-3) FiO2 35 Sodium Level 145mmol/L (136-145) Potassium Level 3.6mmol/L (3.5-5.1) Chloride Level 100mmol/L (98-107) Carbon Dioxide Level 38mmol/L (21-32) Anion Gap 7 (6-14) Blood Urea Nitrogen 71mg/dL (7-20) Creatinine 1.2mg/dL (0.6-1.0) Estimated GFR (Cockcroft-Gault) 45.1 Glucose Level 136mg/dL (70-99) Calcium Level 9.4mg/dL (8.5-10.1) Medications Current Medications Albuterol/ Ipratropium 3 ml 3 ml 1X ONCE NEB Last administered on 12/25/16 05 :49; Start 12/25/16 at 05:30; Stop 12/25/16 at 05:31; Status DC Sodium Chloride (Iv Sodium Chloride 0.9% 500ml Bag) 500 ml @ 500 mls/hr 1X ONCE IV Last administered on 12/25/16 06:09; Start 12/25/16 at 06:15; Stop at 07:14; Status DC Diltiazem HCl 20 mg 20 mg 1X ONCE IVP Last administered on 12/25/16 06:30; Start 12/25/16 at 06:30; Stop 12/25/16 at 15:01; Status DC Diltiazem HCl/ Dextrose (Cardizem) 125 ml @ 10 mls/hr 1X ONCE IV Last administered on 12/25/16 06:30; Start 12/25/16 at 06:30; Stop 12/25/16 at 15:01 ; Status DC Albuterol/ Ipratropium (Duoneb) 3 ml QID NEB Last administered on 12/25/16 13: 05; Start 12/25/16 at 13:30; Stop 12/25/16 at 14:46; Status DC Aspirin (Dutch Aspirin) 325 mg DAILY PO Last administered on 12/27/16 07:56; Start 12/25/16 at 15:30; Stop 12/28/16 at 12:29; Status DC Furosemide (Lasix) 80 mg DAILY PO Last administered on 12/27/16 07:56; Start 12/25/16 at 15:30; Stop 12/28/16 at 14:50; Status DC Isosorbide Mononitrate (Imdur) 60 mg DAILY PO Last administered on 12/30/16 09 :00; Start 12/25/16 at 15:30 Pantoprazole Sodium (Protonix) 40 mg DAILY PO Last administered on 12/27/16 07 :56; Start 12/25/16 at 15:30; Stop 12/28/16 at 14:50; Status DC Potassium Chloride (Klor-Con) 20 meq BID PO Last administered on 12/29/16 08: 22; Start 12/25/16 at 21:00 Atorvastatin Calcium (Lipitor) 80 mg QHS PO Last administered on 12/28/16 21: 32; Start 12/25/16 at 21:00 Potassium Chloride (Klor-Con) 40 meq 1X ONCE PO Last administered on 15:49; Start 12/25/16 at 15:00; Stop 12/25/16 at 15:01; Status DC Albuterol/ Ipratropium 3 ml 3 ml RTQID NEB Last administered on 12/26/16 12:27 ; Start 12/25/16 at 16:00; Stop 12/26/16 at 15:35; Status DC Heparin Sodium/ Dextrose 500 ml @ 0 mls/hr CONT PRN IV SEE I/O RECORD Last administered on 12/25/16 16:00; Start 12/25/16 at 15:00; Stop 12/27/16 at 16:54 ; Status DC Heparin Sodium (Porcine) 1,900 unit PRN Q6HRS PRN IV FOR UFH LEVEL LESS THAN 0.2; Start 12/25/16 at 15:00; Stop 12/27/16 at 16:54; Status DC Diltiazem HCl (Cardizem 24hr Cd) 180 mg DAILY PO Last administered on 08:30; Start 12/25/16 at 15:30; Stop 12/26/16 at 13:17; Status DC Info 1 each 1 each PRN DAILY PRN MC SEE COMMENTS Last administered on 13:01; Start 12/25/16 at 15:15; Stop 12/28/16 at 12:31; Status DC Magnesium Sulfate/ Dextrose (Magnesium Sulfate PREMIX 2GM) 50 ml @ 25 mls/hr 1X ONCE IV Last administered on 12/25/16 17:38; Start 12/25/16 at 17:30; Stop 12/25/16 at 19:29; Status DC Albuterol Sulfate (Ventolin Neb Soln) 2.5 mg PRN Q4HRS PRN NEB SHORTNESS OF BREATH Last administered on 12/28/16 15:12; Start 12/25/16 at 17:15; Stop 12/30 at 13:00; Status DC Lorazepam (Ativan) 0.5 mg PRN Q8HRS PRN PO ANXIETY / AGITATION Last administered on 12/29/16 01:53; Start 12/25/16 at 17:15 Potassium Chloride 40 meq 40 meq 1X ONCE PO Last administered on 12/26/16 06: 34; Start 12/26/16 at 06:00; Stop 12/26/16 at 06:01; Status DC Potassium Chloride (KCl Premix 10meq) 100 ml @ 100 mls/hr Q1H IV Last administered on 12/26/16 15:29; Start 12/26/16 at 06:00; Stop 12/26/16 at 09:59 ; Status DC Hydralazine HCl (Apresoline) 10 mg PRN Q4HRS PRN IVP ELEVATED BP, SEE COMMENTS Last administered on 12/26/16 11:08; Start 12/26/16 at 08:45 Alprazolam (Xanax) 0.5 mg TID PO Last administered on 12/30/16 09:27; Start at 10:00 Cyclobenzaprine HCl (Flexeril) 10 mg PRN QHS PRN PO MUSCLE SPASMS Last administered on 12/27/16 13:21; Start 12/26/16 at 09:30 Docusate Sodium (Colace) 100 mg DAILY PO Last administered on 12/29/16 08:23; Start 12/26/16 at 10:00 Acetaminophen/ Hydrocodone Bitart (Lortab 10/325) 1 tab PRN Q8HRS PRN PO PAIN Last administered on 12/29/16 19:54; Start 12/26/16 at 09:30 Prednisone (Prednisone) 10 mg DAILY PO Last administered on 12/27/16 07:56; Start 12/26/16 at 10:00; Stop 12/28/16 at 14:50; Status DC Verapamil HCl (Calan Sr) 180 mg DAILY PO Last administered on 12/26/16 10:12; Start 12/26/16 at 10:00; Stop 12/26/16 at 13:17; Status DC Gabapentin (Neurontin) 300 mg QHS PO Last administered on 12/28/16 21:29; Start 12/26/16 at 21:00 Guaifenesin (Mucinex) 600 mg PRN BID PRN PO CONGESTION Last administered on 20:38; Start 12/26/16 at 21:00 Fish Oil (Fish Oil) 1,000 mg DAILY PO Last administered on 12/30/16 08:34; Start 12/26/16 at 10:00 Sucralfate (Carafate) 1 gm QID PO Last administered on 12/29/16 14:45; Start 12/26/16 at 13:00 Albuterol Sulfate (Ventolin Neb Soln) 2.5 mg PRN Q4HRS PRN NEB SHORTNESS OF BREATH; Start 12/26/16 at 09:30; Status Cancel Iohexol 100 ml 100 ml STK-MED ONCE .ROUTE ; Start 12/26/16 at 10:51; Stop at 10:52; Status DC Heparin Sodium/ Sodium Chloride 1,000 ml @ As Directed STK-MED ONCE .ROUTE ; Start 12/26/16 at 10:51; Stop 12/26/16 at 10:52; Status DC Lidocaine HCl 20 ml STK-MED ONCE .ROUTE ; Start 12/26/16 at 10:52; Stop at 10:53; Status DC Nitroglycerin (Nitroglycerin) 200 mcg STK-MED ONCE .ROUTE ; Start 12/26/16 at 11 :19; Stop 12/26/16 at 11:20; Status DC Verapamil HCl (Verapamil) 5 mg STK-MED ONCE .ROUTE ; Start 12/26/16 at 11:19; Stop 12/26/16 at 11:20; Status DC Heparin Sodium (Porcine) 10,000 unit STK-MED ONCE .ROUTE ; Start 12/26/16 at 11: 19; Stop 12/26/16 at 11:20; Status DC Fentanyl Citrate (Fentanyl 2ml Vial) 100 mcg STK-MED ONCE .ROUTE ; Start at 11:19; Stop 12/26/16 at 11:20; Status DC Midazolam HCl (Versed) 5 mg STK-MED ONCE .ROUTE ; Start 12/26/16 at 11:19; Stop 12/26/16 at 11:20; Status DC Nitroglycerin (Nitroglycerin) 200 mcg 1X ONCE IART Last administered on 11:30; Start 12/26/16 at 11:30; Stop 12/26/16 at 11:38; Status DC Verapamil HCl (Verapamil) 2.5 mg 1X ONCE IART Last administered on 12/26/16 11:30; Start 12/26/16 at 11:30; Stop 12/26/16 at 11:38; Status DC Heparin Sodium (Porcine) 2,500 unit 1X ONCE IART Last administered on 11:55; Start 12/26/16 at 11:30; Stop 12/26/16 at 11:38; Status DC Heparin Sodium/ Sodium Chloride 1,000 unit 1X ONCE IART Last administered on 11:54; Start 12/26/16 at 11:30; Stop 12/26/16 at 11:38; Status DC Midazolam HCl (Versed) 5 mg 1X ONCE IV Last administered on 12/26/16 11:52; Start 12/26/16 at 11:30; Stop 12/26/16 at 11:38; Status DC Fentanyl Citrate (Fentanyl 2ml Vial) 100 mcg 1X ONCE IV Last administered on 11:53; Start 12/26/16 at 11:30; Stop 12/26/16 at 11:38; Status DC Iohexol (Omnipaque 300 Mg/ml) 100 ml 1X ONCE IART Last administered on 11:53; Start 12/26/16 at 11:30; Stop 12/26/16 at 11:38; Status DC Lidocaine HCl 20 ml 1X ONCE IJ Last administered on 12/26/16 11:52; Start at 11:30; Stop 12/26/16 at 11:38; Status DC Clopidogrel Bisulfate (Plavix) 75 mg STK-MED ONCE .ROUTE ; Start 12/26/16 at 12: 00; Stop 12/26/16 at 12:01; Status DC Clopidogrel Bisulfate (Plavix) 600 mg 1X ONCE PO Last administered on 12:03; Start 12/26/16 at 12:15; Stop 12/26/16 at 12:16; Status DC Digoxin (Lanoxin) 500 mcg 1X ONCE IV Last administered on 12/26/16 13:14; Start 12/26/16 at 13:15; Stop 12/26/16 at 13:16; Status DC Adenosine (Adenocard) 12 mg 1X ONCE IV Last administered on 12/26/16 13:08; Start 12/26/16 at 13:00; Stop 12/26/16 at 13:01; Status DC Verapamil HCl 180 mg 180 mg BID PO Last administered on 12/29/16 08:19; Start 12/26/16 at 21:00 Magnesium Sulfate/ Dextrose (Magnesium Sulfate PREMIX 2GM) 50 ml @ 25 mls/hr STAT ONCE IV Last administered on 12/26/16 13:55; Start 12/26/16 at 13:15; Stop 12/26/16 at 15:14; Status DC Ipratropium [place] (Atrovent) 0.5 mg RTQID NEB Last administered on 12/27/16 11:40; Start 12/26/16 at 16:00; Stop 12/27/16 at 11:50; Status DC Digoxin (Lanoxin) 125 mcg DAILY PO Last administered on 12/27/16 13:22; Start 12/27/16 at 12:00; Stop 12/28/16 at 14:27; Status DC Albuterol/ Ipratropium (Duoneb) 3 ml RTQID NEB Last administered on 12/30/16 11:40; Start 12/27/16 at 12:00 Furosemide (Lasix) 40 mg 1X ONCE IVP Last administered on 12/28/16 06:49; Start 12/28/16 at 07:00; Stop 12/28/16 at 07:01; Status DC Methylprednisolone Sodium Succinate (Solu-Medrol 125mg Vial) 125 mg 1X ONCE IV Last administered on 12/28/16 08:39; Start 12/28/16 at 08:30; Stop 12/28/16 at 08:31; Status DC Furosemide (Lasix) 40 mg 1X ONCE IVP Last administered on 12/28/16 08:52; Start 12/28/16 at 09:00; Stop 12/28/16 at 09:01; Status DC Aspirin (Children'S Aspirin) 81 mg DAILYWBKFT PO Last administered on 08:31; Start 12/29/16 at 08:00 Clopidogrel Bisulfate (Plavix) 75 mg DAILYWBKFT PO Last administered on 08:31; Start 12/28/16 at 12:30 Digoxin (Lanoxin) 125 mcg DAILY IV Last administered on 12/30/16 08:33; Start 12/29/16 at 09:00 Digoxin (Lanoxin) 125 mcg 1X ONCE IV Last administered on 12/28/16 14:36; Start 12/28/16 at 14:30; Stop 12/28/16 at 14:31; Status DC Methylprednisolone Sodium Succinate (Solu-Medrol 40mg Vial) 40 mg Q8HRS IV Last administered on 12/30/16 06:20; Start 12/28/16 at 15:00 Furosemide (Lasix) 40 mg DAILY IVP Last administered on 12/30/16 09:30; Start 12/30/16 at 10:00 Pantoprazole Sodium 40 mg 40 mg DAILYAC IVP Last administered on 12/30/16 07: 27; Start 12/29/16 at 07:30 Levofloxacin/ Dextrose (LEVAQUIN 500mg PREMIX) 100 ml @ 100 mls/hr 1X ONCE IV Last administered on 12/28/16 15:22; Start 12/28/16 at 15:00; Stop 12/28/16 at 15:59; Status DC Levofloxacin/ Dextrose (Levaquin Per Pharmacy) 1 each PRN DAILY PRN MC SEE COMMENTS; Start 12/28/16 at 15:00 Diltiazem HCl 20 mg 20 mg 1X ONCE IVP ; Start 12/28/16 at 15:00; Stop 12/28/16 at 15:01; Status DC Levofloxacin/ Dextrose (LEVAQUIN 250mg PREMIX) 50 ml @ 50 mls/hr Q24H IV Last administered on 12/29/16 14:38; Start 12/29/16 at 15:00; Stop 12/29/16 at 16:42 ; Status DC Spironolactone (Aldactone) 25 mg DAILY PO Last administered on 12/29/16 14:56 ; Start 12/29/16 at 13:15 Lisinopril 5 mg 5 mg DAILY PO Last administered on 12/29/16 14:38; Start 12/29 at 13:15 Levofloxacin/ Dextrose 100 ml @ 100 mls/hr Q24H IV ; Start 12/30/16 at 16:00 Amino Acids/ Glycerin/ Electrolytes (Procalamine) 1,000 ml @ 60 mls/hr [id number] IV Last administered on 12/30/16 11:46; Start 12/30/16 at 10:15 Albuterol Sulfate (Ventolin Neb Soln) 2.5 mg QID NEB ; Start 12/30/16 at 13:00 Active Scripts Active Hydrocodone-Apap 10-325 (Hydrocodone Bit/Acetaminophen) 1 Each Tablet 1 Tab PO Q8HRS PRN Reported Prednisone 10 Mg Tablet 10 Mg PO DAILY Proair Hfa Inhaler (Albuterol Sulfate) 8.5 Gm Hfa.aer.ad 1 Puff INH PRN Q6HRS PRN Zolpidem Tartrate 10 Mg Tablet 1 Tab PO QHS Verapamil Er (Verapamil Hcl) 180 Mg Tablet.er 180 Mg PO DAILY Pantoprazole Sodium 40 Mg Tablet. 1 Tab PO DAILY [place] 3 Fish Oil Softgel ([place]-3 Fatty Acids/Fish Oil) 1 Each Capsule.dr 1 Each PO DAILY Multi-Vitamin Daily (Multivitamin) 1 Each Tablet 1 Each PO Isosorbide Mononitrate Er (Isosorbide Mononitrate) 60 Mg Tab.er.24h 1.5 Tab PO DAILY Gabapentin Oral Solution (Gabapentin) 300 Mg/6 Ml Solution 300 Mg PO HS Furosemide 80 Mg Tablet 1 Tab PO DAILY Colace (Docusate Sodium) 100 Mg Capsule 1 Cap PO DAILY Cyclobenzaprine Hcl 10 Mg Tablet 1 Tab PO QHS PRN Atorvastatin Calcium 80 Mg Tablet 1 Tab PO HS PRN Aspirin 325 Mg Tablet 1 Tab PO DAILY Xanax (Alprazolam) 1 Mg Tablet 1 Tab PO TID Mucus And Cough Relief Tablet (Guaifenesin/Dextromethorphan) 1 Each Tablet 1 Each PO Q4-6HRS PRN Potassium Chloride 20 Meq Tab.er.prt 1 Tab PO BID Sucralfate 1 Gm Tablet 1 Tab PO QID Vitals/I & O Vital Sign - Last 24 Hours 12/29/16 12/29/16 12/29/16 12/29/16 14:00 14:38 15:00 16:00 Pulse 94 96 96 Resp 32 28 B/P 138/69 138/69 164/78 Pulse Ox 94 94 O2 Delivery Venturi Mask BiPAP/CPAP Bi-pap O2 Flow Rate 10.0 10.0 12/29/16 12/29/16 12/29/16 12/29/16 16:00 16:01 17:00 18:25 Temp 98.6 98.6 Pulse 96 96 B/P 124/72 94/55 Pulse Ox 93 95 93 97 O2 Delivery BiPAP/CPAP BiPAP/CPAP BiPAP/CPAP BiPAP/CPAP 12/29/16 12/29/16 12/29/16 12/29/16 19:00 19:27 19:54 20:00 Temp 98.5 98.5 Pulse 92 86 Resp 20 24 24 B/P 90/56 97/72 Pulse Ox 99 99 98 95 O2 Delivery BiPAP/CPAP BiPAP/CPAP BiPAP/CPAP BiPAP/CPAP 12/29/16 12/29/16 12/29/1617/17 20:00 20:33 21:00 21:40 Pulse 94 90 Resp 25 B/P 97/72 87/45 Pulse Ox 98 98 O2 Delivery Bi-pap BiPAP/CPAP BiPAP/CPAP 12/29/17 217/17 2//17 2 22:00 22:02 23:00 23:33 Pulse 84 82 Resp 25 27 25 B/P 92/40 90/45 Pulse Ox 98 98 99 99 O2 Delivery BiPAP/CPAP BiPAP/CPAP BiPAP/CPAP BiPAP/CPAP 18/17 218/17 2/18/17 2 00:00 00:00 01:00 02:00 Temp 97.8 97.8 Pulse 85 79 84 Resp 23 28 30 B/P 111/61 103/56 121/70 Pulse Ox 98 94 97 O2 Delivery Venturi Mask Venturi Mask Venturi Mask Venturi Mask O2 Flow Rate 9.0 9.0 9.0 9.0 218/17 2/18/17 2/18/17 2 03:00 04:00 04:00 05:00 Temp 97.6 97.6 Pulse 92 82 83 Resp 26 23 25 B/P 117/54 132/61 131/73 Pulse Ox 94 95 95 O2 Delivery Venturi Mask Venturi Mask Venturi Mask Venturi Mask O2 Flow Rate 9.0 9.0 9.0 9.0 218/17 2/18/17 2/18/17 218/17 06:00 07:00 07:27 08:00 Temp 98.2 98.2 Pulse 85 84 91 Resp 25 25 B/P 148/72 169/73 138/66 Pulse Ox 94 40 90 40 O2 Delivery Venturi Mask Venturi Mask Venturi Mask Venturi Mask O2 Flow Rate 9.0 12.0 9.0 12.0 2/18/17 2/18/17 2/18/17 2/18/17 08:00 08:33 09:00 09:00 Pulse 87 87 94 Resp 27 B/P 138/66 138/66 144/68 Pulse Ox 40 O2 Delivery Venturi Mask Venturi Mask O2 Flow Rate 12.0 12.0 2/18/17 2/18/17 2/18/17 2/18/17 10:00 11:00 11:42 12:00 Temp 97.9 97.9 Pulse 91 93 92 Resp 26 24 24 B/P 135/71 111/70 119/58 Pulse Ox 40 40 93 40 O2 Delivery Venturi Mask Venturi Mask Venturi Mask Venturi Mask O2 Flow Rate 12.0 12.0 12.0 12.0 Intake and Output 12/29/16 12/29/16 12/30/16 15:00 23:00 07:00 Intake Total 150 ml 100 ml Output Total 425 ml 175 ml 410 ml Balance -275 ml -75 ml -410 ml HEYDI [email or web address] MD Dec 30, 2016 13:31
[2016-12-30] MEDS: LORAZEPAM 0.5 MG TABLET. PO PRN (17:13)
[2016-12-30] MEDS: GABAPENTIN 300 MG CAPSULE. PO SCH ×2 (21:00→21:28)
[2016-12-30] MEDS: ATORVASTATIN CALCIUM 40 MG TABLET. PO SCH ×2 (21:00→21:27)
[2016-12-31] VITALS (24 sets, daily range): BP systolic 114–202; BP diastolic 60–89
[2016-12-31] MEDS: LORAZEPAM 0.5 MG TABLET. PO PRN (01:51)
[2016-12-31] MEDS: AA 3%/ELECTROLYTE-TPN SOLN/GLY 1,000 ML IV SCH ×2 (04:26→20:31)
[2016-12-31] MEDS: methylPREDNISolone SOD SUCC PF 40 MG/ML VIAL. IV SCH ×3 (05:34→20:32)
--- NOTE | 2016-12-31 07:20 | PDOC ---
PULMONARY PROGRESS NOTES Subjective refused bipap, on vm, 40%, no cp. has sob, cough, no runny nose, confused at times Vitals Vital Signs Date Time Temp Pulse Resp B/P Pulse Ox O2 Delivery O2 Flow Rate FiO2 12/31/16 06:00 77 30 160/77 40 Venturi Mask 12.0 12/31/16 04:00 97.5 97.5 Comments ros as mentioned as above other sys otherwise neg. ROS: No Nausea, No Chest Pain, No Abdominal Pain, No Increase Cough General: Alert HEENT: Other (nc at, perrl, throat nose clear) Lungs: Other (bl rhonchis) Cardiovascular: S1, S2 Abdomen: Soft, Non-tender, Other ([place]) Neuro Exam: Alert Extremities: No Edema, Other Skin: Warm Labs Laboratory Tests Test 12/29/16 08:00 12/29/16 09:40 12/30/16 08:00 12/30/16 12:00 O2 Saturation 93% (92-99) 91% (92-99) Arterial Blood pH 7.39 (7.35-7.45) 7.37 (7.35-7.45) Arterial Blood pCO2 at Patient Temp 57mmHg (35-46) 53mmHg (35-46) Arterial Blood pO2 at Patient Temp 73mmHg (65-108) 67mmHg (65-108) Arterial Blood HCO3 34mmol/L (21-28) 30mmol/L (21-28) Arterial Blood Base Excess 7mmol/L (-3-3) 4mmol/L (-3-3) FiO2 50 35 White Blood Count 6.9x10^3/uL (4.0-11.0) Red Blood Count 4.87x10^6/uL (3.50-5.40) Hemoglobin 12.8g/dL (12.0-15.5) Hematocrit 39.8% (36.0-47.0) Mean Corpuscular Volume 82fL (79-100) Mean Corpuscular Hemoglobin 26pg (25-35) Mean Corpuscular Hemoglobin Concent 32g/dL (31-37) Red Cell Distribution Width 16.3% (11.5-14.5) Platelet Count 145x10^3/uL (140-400) Neutrophils (%) (Auto) 86% (31-73) Lymphocytes (%) (Auto) 5% (24-48) Monocytes (%) (Auto) 9% (0-9) Eosinophils (%) (Auto) 0% (0-3) Basophils (%) (Auto) 0% (0-3) Neutrophils # (Auto) 6.0x10^3uL (1.8-7.7) Lymphocytes # (Auto) 0.4x10^3/uL (1.0-4.8) Monocytes # (Auto) 0.6x10^3/uL (0.0-1.1) Eosinophils # (Auto) 0.0x10^3/uL (0.0-0.7) Basophils # (Auto) 0.0x10^3/uL (0.0-0.2) Sodium Level 144mmol/L (136-145) 145mmol/L (136-145) Potassium Level 3.9mmol/L (3.5-5.1) 3.6mmol/L (3.5-5.1) Chloride Level 102mmol/L (98-107) 100mmol/L (98-107) Carbon Dioxide Level 36mmol/L (21-32) 38mmol/L (21-32) Anion Gap 6 (6-14) 7 (6-14) Blood Urea Nitrogen 48mg/dL (7-20) 71mg/dL (7-20) Creatinine 1.0mg/dL (0.6-1.0) 1.2mg/dL (0.6-1.0) Estimated GFR (Cockcroft-Gault) 55.6 45.1 Glucose Level 123mg/dL (70-99) 136mg/dL (70-99) Calcium Level 9.0mg/dL (8.5-10.1) 9.4mg/dL (8.5-10.1) Laboratory Tests Test 12/30/16 08:00 12/30/16 12:00 O2 Saturation 91% (92-99) Arterial Blood pH 7.37 (7.35-7.45) Arterial Blood pCO2 at Patient Temp 53mmHg (35-46) Arterial Blood pO2 at Patient Temp 67mmHg (65-108) Arterial Blood HCO3 30mmol/L (21-28) Arterial Blood Base Excess 4mmol/L (-3-3) FiO2 35 Sodium Level 145mmol/L (136-145) Potassium Level 3.6mmol/L (3.5-5.1) Chloride Level 100mmol/L (98-107) Carbon Dioxide Level 38mmol/L (21-32) Anion Gap 7 (6-14) Blood Urea Nitrogen 71mg/dL (7-20) Creatinine 1.2mg/dL (0.6-1.0) Estimated GFR (Cockcroft-Gault) 45.1 Glucose Level 136mg/dL (70-99) Calcium Level 9.4mg/dL (8.5-10.1) Medications Active Scripts Medications Dose Route/Sig Days Date Category Prednisone 10 Mg Tablet 10 Mg PO DAILY 09/13/16 Reported Proair Hfa Inhaler (Albuterol Sulfate) 8.5 Gm Hfa.aer.ad 1 Puff INH PRN Q6HRS PRN 08/01/16 Reported Hydrocodone-Apap 10-325 (Hydrocodone Bit/Acetaminophen) 1 Each Tablet 1 Tab PO Q8HRS PRN 07/19/16 Rx Zolpidem Tartrate 10 Mg Tablet 1 Tab PO QHS 10/31/15 Reported Verapamil Er (Verapamil Hcl) 180 Mg Tablet.er 180 Mg PO DAILY 10/31/15 Reported Pantoprazole Sodium 40 Mg Tablet.dr 1 Tab PO DAILY 10/31/15 Reported [place] 3 Fish Oil Softgel ([place]-3 Fatty Acids/Fish Oil) 1 Each Capsule.dr 1 Each PO DAILY 10/31/15 Reported Multi-Vitamin Daily (Multivitamin) 1 Each Tablet 1 Each PO 10/31/15 Reported Isosorbide Mononitrate Er (Isosorbide Mononitrate) 60 Mg Tab.er.24h 1.5 Tab PO DAILY 10/31/15 Reported Gabapentin Oral Solution (Gabapentin) 300 Mg/6 Ml Solution 300 Mg PO HS 10/31/15 Reported Furosemide 80 Mg Tablet 1 Tab PO DAILY 10/31/15 Reported Colace (Docusate Sodium) 100 Mg Capsule 1 Cap PO DAILY 10/31/15 Reported Cyclobenzaprine Hcl 10 Mg Tablet 1 Tab PO QHS PRN 10/31/15 Reported Atorvastatin Calcium 80 Mg Tablet 1 Tab PO HS PRN 10/31/15 Reported Aspirin 325 Mg Tablet 1 Tab PO DAILY 10/31/15 Reported Xanax (Alprazolam) 1 Mg Tablet 1 Tab PO TID 10/31/15 Reported Mucus And Cough Relief Tablet (Guaifenesin/Dextromethorphan) 1 Each Tablet 1 Each PO Q4-6HRS PRN 10/31/15 Reported Potassium Chloride 20 Meq Tab.er.prt 1 Tab PO BID 10/31/15 Reported Sucralfate 1 Gm Tablet 1 Tab PO QID 10/31/15 Reported Comments cxr reviewed, increased inter marking, Impression . 1. Uxdoj-ff-mugirep hypoxemic respiratory failure. 2. Mild acute exacerbation of chronic obstructive pulmonary disease. 3. Non-ST segment elevation, status post previous percutaneous coronary with two stents. 4. Coronary artery disease as described above. 5. Chronic obstructive pulmonary disease. 6. Gastroesophageal reflux. 7. Dementia. 8. Electrolytes abnormalities. 9. Chronic diastolic heart failure. 10. Peripheral arterial disease. 11. Nonspecific anxiety. Plan . o2 titration bronchodilator bipap prn cont abx keep I<O, lasix, monitor k, cr start lovenox protonix for prophylaxis MAY NEED LTAC CONTINUE SAME START DIET ARTERIAL STUDY BELOW PER PCP ARTERIAL STUDY There is multifocal plaque seen throughout the vasculature of the bilateral legs. In addition there are monophasic waveforms seen bilaterally which can be seen with hemodynamically significant regions of narrowing. The bilateral peroneal arteries are not visualized therefore occlusion not excluded. Soft tissue edema is visualized discussed w rn, pt MATTHEW LEIJA MD Dec 31, 2016 07:20
[2016-12-31] MEDS: IPRATRPIUM/ALBUTEROL 0.5/2.5MG 3 ML NEBU. NEB SCH ×4 (08:02→21:00)
[2016-12-31] MEDS: PANTOPRAZOLE 40 MG TABLET. PO SCH (08:19)
[2016-12-31] MEDS: ASPIRIN 81 MG TAB.CHEW PO SCH (08:19)
[2016-12-31] MEDS: CLOPIDOGREL BISULFATE 75 MG TABLET PO SCH (08:19)
[2016-12-31] MEDS: VERAPAMIL SR 180 MG TABLET.ER. PO SCH ×2 (08:19→20:33)
[2016-12-31] MEDS: ISOSORBIDE MONONITRATE ER 60 MG TAB.ER.24H PO SCH (08:20)
[2016-12-31] MEDS: ALPRAZOLAM 0.5 MG TABLET PO SCH ×3 (08:20→20:33)
[2016-12-31] MEDS: LISINOPRIL 5 MG TABLET. PO SCH (08:20)
[2016-12-31] MEDS: FUROSEMIDE 40 MG/4 ML VIAL IVP SCH (09:00)
[2016-12-31] MEDS: POTASSIUM CHLORIDE 20 MEQ TABLET.ER. PO SCH ×2 (09:00→20:34)
[2016-12-31] MEDS: DOCUSATE SODIUM 100 MG CAPSULE PO SCH (09:00)
[2016-12-31] MEDS: SPIRONOLACTONE 25 MG TABLET PO SCH (09:00)
[2016-12-31] MEDS: DIGOXIN 500 MCG/2 ML AMPUL. IV SCH (09:00)
[2016-12-31] MEDS: SUCRALFATE 1 GM TABLET. PO SCH ×4 (09:00→20:33)
[2016-12-31] MEDS: OMEGA-3 FATTY ACIDS/FISH OIL 1,000 MG CAPSULE. PO SCH (09:00)
--- NOTE | 2016-12-31 10:27 | RAD ---
Indication difficulty breathing. A single view of the chest was obtained. Comparison is made to a study 2 days previously. Heart and pulmonary vessels are unchanged. A focal infiltrate is not seen. There has not been a significant change in the appearance of the chest compared to the previous exam. A granuloma is noted at the left lung base, similar. IMPRESSION: No acute finding. No significant change
[2016-12-31] MEDS: ENOXAPARIN 40 MG/0.4 ML DISP.SYRIN. SQ SCH (11:07)
--- NOTE | 2016-12-31 11:33 | PDOC ---
PROGRESS NOTES Subjective Subjective Patient seen and examined. The patient is markedly improved. Objective Objective Vital Signs Date Time Temp Pulse Resp B/P Pulse Ox O2 Delivery O2 Flow Rate FiO2 12/31/16 10:00 98 32 176/79 35 Venturi Mask 9.0 12/31/16 08:00 98.4 98.4 Intake and Output 12/31/16 07:00 Intake Total 1452 ml Output Total 2120 ml Balance -668 ml Intake Oral 480 ml IV Total 972 ml Output Urine Total 2120 ml Physical Exam Abdomen: Normal bowel sounds Heart: Regular rate General: mild distress Lungs: Other (decreased breath sounds) Assessment Assessment Problems Medical Problems: (1) Atrial fibrillation with RVR Status: Acute (2) Cardiac ischemia Status: Acute (3) COPD exacerbation Status: Acute Assessment 1. atrial dysrhythmia. improved. Continue present treatments. 2. acute on chronic systolic heart failure. mildly improved. Again continue present treatment. 3. NICM 4. Acute on Chronic Respiratory Failure. Followed by the pulmonary service. 5. NSTEMI s/p cath with no obstructive CAD 6. Hypertension 7. Peripheral artery disease Comment Review of Relevant I have reviewed the following items claudia (where applicable) has been applied. Labs Laboratory Tests Test 12/30/16 08:00 12/30/16 12:00 O2 Saturation 91% (92-99) Arterial Blood pH 7.37 (7.35-7.45) Arterial Blood pCO2 at Patient Temp 53mmHg (35-46) Arterial Blood pO2 at Patient Temp 67mmHg (65-108) Arterial Blood HCO3 30mmol/L (21-28) Arterial Blood Base Excess 4mmol/L (-3-3) FiO2 35 Sodium Level 145mmol/L (136-145) Potassium Level 3.6mmol/L (3.5-5.1) Chloride Level 100mmol/L (98-107) Carbon Dioxide Level 38mmol/L (21-32) Anion Gap 7 (6-14) Blood Urea Nitrogen 71mg/dL (7-20) Creatinine 1.2mg/dL (0.6-1.0) Estimated GFR (Cockcroft-Gault) 45.1 Glucose Level 136mg/dL (70-99) Calcium Level 9.4mg/dL (8.5-10.1) Laboratory Tests Test 12/30/16 12:00 Sodium Level 145mmol/L (136-145) Potassium Level 3.6mmol/L (3.5-5.1) Chloride Level 100mmol/L (98-107) Carbon Dioxide Level 38mmol/L (21-32) Anion Gap 7 (6-14) Blood Urea Nitrogen 71mg/dL (7-20) Creatinine 1.2mg/dL (0.6-1.0) Estimated GFR (Cockcroft-Gault) 45.1 Glucose Level 136mg/dL (70-99) Calcium Level 9.4mg/dL (8.5-10.1) Medications Current Medications Albuterol/ Ipratropium 3 ml 3 ml 1X ONCE NEB Last administered on 12/25/16 05 :49; Start 12/25/16 at 05:30; Stop 12/25/16 at 05:31; Status DC Sodium Chloride (Iv Sodium Chloride 0.9% 500ml Bag) 500 ml @ 500 mls/hr 1X ONCE IV Last administered on 12/25/16 06:09; Start 12/25/16 at 06:15; Stop at 07:14; Status DC Diltiazem HCl 20 mg 20 mg 1X ONCE IVP Last administered on 12/25/16 06:30; Start 12/25/16 at 06:30; Stop 12/25/16 at 15:01; Status DC Diltiazem HCl/ Dextrose (Cardizem) 125 ml @ 10 mls/hr 1X ONCE IV Last administered on 12/25/16 06:30; Start 12/25/16 at 06:30; Stop 12/25/16 at 15:01 ; Status DC Albuterol/ Ipratropium (Duoneb) 3 ml QID NEB Last administered on 12/25/16 13: 05; Start 12/25/16 at 13:30; Stop 12/25/16 at 14:46; Status DC Aspirin ([place] Aspirin) 325 mg DAILY PO Last administered on 12/27/16 07:56; Start 12/25/16 at 15:30; Stop 12/28/16 at 12:29; Status DC Furosemide (Lasix) 80 mg DAILY PO Last administered on 12/27/16 07:56; Start 12/25/16 at 15:30; Stop 12/28/16 at 14:50; Status DC Isosorbide Mononitrate (Imdur) 60 mg DAILY PO Last administered on 12/31/16 08 :20; Start 12/25/16 at 15:30 Pantoprazole Sodium (Protonix) 40 mg DAILY PO Last administered on 12/27/16 07 :56; Start 12/25/16 at 15:30; Stop 12/28/16 at 14:50; Status DC Potassium Chloride (Klor-Con) 20 meq BID PO Last administered on 12/29/16 08: 22; Start 12/25/16 at 21:00 Atorvastatin Calcium (Lipitor) 80 mg QHS PO Last administered on 12/28/16 21: 32; Start 12/25/16 at 21:00 Potassium Chloride (Klor-Con) 40 meq 1X ONCE PO Last administered on 15:49; Start 12/25/16 at 15:00; Stop 12/25/16 at 15:01; Status DC Albuterol/ Ipratropium 3 ml 3 ml RTQID NEB Last administered on 12/26/16 12:27 ; Start 12/25/16 at 16:00; Stop 12/26/16 at 15:35; Status DC Heparin Sodium/ Dextrose 500 ml @ 0 mls/hr CONT PRN IV SEE I/O RECORD Last administered on 12/25/16 16:00; Start 12/25/16 at 15:00; Stop 12/27/16 at 16:54 ; Status DC Heparin Sodium (Porcine) 1,900 unit PRN Q6HRS PRN IV FOR UFH LEVEL LESS THAN 0.2; Start 12/25/16 at 15:00; Stop 12/27/16 at 16:54; Status DC Diltiazem HCl (Cardizem 24hr Cd) 180 mg DAILY PO Last administered on 08:30; Start 12/25/16 at 15:30; Stop 12/26/16 at 13:17; Status DC Info 1 each 1 each PRN DAILY PRN MC SEE COMMENTS Last administered on 13:01; Start 12/25/16 at 15:15; Stop 12/28/16 at 12:31; Status DC Magnesium Sulfate/ Dextrose (Magnesium Sulfate PREMIX 2GM) 50 ml @ 25 mls/hr 1X ONCE IV Last administered on 12/25/16 17:38; Start 12/25/16 at 17:30; Stop 12/25/16 at 19:29; Status DC Albuterol Sulfate (Ventolin Neb Soln) 2.5 mg PRN Q4HRS PRN NEB SHORTNESS OF BREATH Last administered on 12/28/16 15:12; Start 12/25/16 at 17:15; Stop 12/30 at 13:00; Status DC Lorazepam (Ativan) 0.5 mg PRN Q8HRS PRN PO ANXIETY / AGITATION Last administered on 12/31/16 01:51; Start 12/25/16 at 17:15 Potassium Chloride 40 meq 40 meq 1X ONCE PO Last administered on 12/26/16 06: 34; Start 12/26/16 at 06:00; Stop 12/26/16 at 06:01; Status DC Potassium Chloride (KCl Premix 10meq) 100 ml @ 100 mls/hr Q1H IV Last administered on 12/26/16 15:29; Start 12/26/16 at 06:00; Stop 12/26/16 at 09:59 ; Status DC Hydralazine HCl (Apresoline) 10 mg PRN Q4HRS PRN IVP ELEVATED BP, SEE COMMENTS Last administered on 12/26/16 11:08; Start 12/26/16 at 08:45 Alprazolam (Xanax) 0.5 mg TID PO Last administered on 12/31/16 08:20; Start at 10:00 Cyclobenzaprine HCl (Flexeril) 10 mg PRN QHS PRN PO MUSCLE SPASMS Last administered on 12/27/16 13:21; Start 12/26/16 at 09:30 Docusate Sodium (Colace) 100 mg DAILY PO Last administered on 12/29/16 08:23; Start 12/26/16 at 10:00 Acetaminophen/ Hydrocodone Bitart (Lortab 10/325) 1 tab PRN Q8HRS PRN PO PAIN Last administered on 12/29/16 19:54; Start 12/26/16 at 09:30 Prednisone (Prednisone) 10 mg DAILY PO Last administered on 12/27/16 07:56; Start 12/26/16 at 10:00; Stop 12/28/16 at 14:50; Status DC Verapamil HCl (Calan Sr) 180 mg DAILY PO Last administered on 12/26/16 10:12; Start 12/26/16 at 10:00; Stop 12/26/16 at 13:17; Status DC Gabapentin (Neurontin) 300 mg QHS PO Last administered on 12/28/16 21:29; Start 12/26/16 at 21:00 Guaifenesin (Mucinex) 600 mg PRN BID PRN PO CONGESTION Last administered on 20:38; Start 12/26/16 at 21:00 Fish Oil (Fish Oil) 1,000 mg DAILY PO Last administered on 12/30/16 08:34; Start 12/26/16 at 10:00 Sucralfate (Carafate) 1 gm QID PO Last administered on 12/29/16 14:45; Start 12/26/16 at 13:00 Albuterol Sulfate (Ventolin Neb Soln) 2.5 mg PRN Q4HRS PRN NEB SHORTNESS OF BREATH; Start 12/26/16 at 09:30; Status Cancel Iohexol 100 ml 100 ml STK-MED ONCE .ROUTE ; Start 12/26/16 at 10:51; Stop at 10:52; Status DC Heparin Sodium/ Sodium Chloride 1,000 ml @ As Directed STK-MED ONCE .ROUTE ; Start 12/26/16 at 10:51; Stop 12/26/16 at 10:52; Status DC Lidocaine HCl 20 ml STK-MED ONCE .ROUTE ; Start 12/26/16 at 10:52; Stop at 10:53; Status DC Nitroglycerin (Nitroglycerin) 200 mcg STK-MED ONCE .ROUTE ; Start 12/26/16 at 11 :19; Stop 12/26/16 at 11:20; Status DC Verapamil HCl (Verapamil) 5 mg STK-MED ONCE .ROUTE ; Start 12/26/16 at 11:19; Stop 12/26/16 at 11:20; Status DC Heparin Sodium (Porcine) 10,000 unit STK-MED ONCE .ROUTE ; Start 12/26/16 at 11: 19; Stop 12/26/16 at 11:20; Status DC Fentanyl Citrate (Fentanyl 2ml Vial) 100 mcg STK-MED ONCE .ROUTE ; Start at 11:19; Stop 12/26/16 at 11:20; Status DC Midazolam HCl (Versed) 5 mg STK-MED ONCE .ROUTE ; Start 12/26/16 at 11:19; Stop 12/26/16 at 11:20; Status DC Nitroglycerin (Nitroglycerin) 200 mcg 1X ONCE IART Last administered on 11:30; Start 12/26/16 at 11:30; Stop 12/26/16 at 11:38; Status DC Verapamil HCl (Verapamil) 2.5 mg 1X ONCE IART Last administered on 12/26/16 11:30; Start 12/26/16 at 11:30; Stop 12/26/16 at 11:38; Status DC Heparin Sodium (Porcine) 2,500 unit 1X ONCE IART Last administered on 11:55; Start 12/26/16 at 11:30; Stop 12/26/16 at 11:38; Status DC Heparin Sodium/ Sodium Chloride 1,000 unit 1X ONCE IART Last administered on 11:54; Start 12/26/16 at 11:30; Stop 12/26/16 at 11:38; Status DC Midazolam HCl (Versed) 5 mg 1X ONCE IV Last administered on 12/26/16 11:52; Start 12/26/16 at 11:30; Stop 12/26/16 at 11:38; Status DC Fentanyl Citrate (Fentanyl 2ml Vial) 100 mcg 1X ONCE IV Last administered on 11:53; Start 12/26/16 at 11:30; Stop 12/26/16 at 11:38; Status DC Iohexol (Omnipaque 300 Mg/ml) 100 ml 1X ONCE IART Last administered on 11:53; Start 12/26/16 at 11:30; Stop 12/26/16 at 11:38; Status DC Lidocaine HCl 20 ml 1X ONCE IJ Last administered on 12/26/16 11:52; Start at 11:30; Stop 12/26/16 at 11:38; Status DC Clopidogrel Bisulfate (Plavix) 75 mg STK-MED ONCE .ROUTE ; Start 12/26/16 at 12: 00; Stop 12/26/16 at 12:01; Status DC Clopidogrel Bisulfate (Plavix) 600 mg 1X ONCE PO Last administered on 12:03; Start 12/26/16 at 12:15; Stop 12/26/16 at 12:16; Status DC Digoxin (Lanoxin) 500 mcg 1X ONCE IV Last administered on 12/26/16 13:14; Start 12/26/16 at 13:15; Stop 12/26/16 at 13:16; Status DC Adenosine (Adenocard) 12 mg 1X ONCE IV Last administered on 12/26/16 13:08; Start 12/26/16 at 13:00; Stop 12/26/16 at 13:01; Status DC Verapamil HCl 180 mg 180 mg BID PO Last administered on 12/31/16 08:19; Start 12/26/16 at 21:00 Magnesium Sulfate/ Dextrose (Magnesium Sulfate PREMIX 2GM) 50 ml @ 25 mls/hr STAT ONCE IV Last administered on 12/26/16 13:55; Start 12/26/16 at 13:15; Stop 12/26/16 at 15:14; Status DC Ipratropium [place] (Atrovent) 0.5 mg RTQID NEB Last administered on 12/27/16 11:40; Start 12/26/16 at 16:00; Stop 12/27/16 at 11:50; Status DC Digoxin (Lanoxin) 125 mcg DAILY PO Last administered on 12/27/16 13:22; Start 12/27/16 at 12:00; Stop 12/28/16 at 14:27; Status DC Albuterol/ Ipratropium (Duoneb) 3 ml RTQID NEB Last administered on 12/31/16 08:02; Start 12/27/16 at 12:00 Furosemide (Lasix) 40 mg 1X ONCE IVP Last administered on 12/28/16 06:49; Start 12/28/16 at 07:00; Stop 12/28/16 at 07:01; Status DC Methylprednisolone Sodium Succinate (Solu-Medrol 125mg Vial) 125 mg 1X ONCE IV Last administered on 12/28/16 08:39; Start 12/28/16 at 08:30; Stop 12/28/16 at 08:31; Status DC Furosemide (Lasix) 40 mg 1X ONCE IVP Last administered on 12/28/16 08:52; Start 12/28/16 at 09:00; Stop 12/28/16 at 09:01; Status DC Aspirin (Children'S Aspirin) 81 mg DAILYWBKFT PO Last administered on 08:19; Start 12/29/16 at 08:00 Clopidogrel Bisulfate (Plavix) 75 mg DAILYWBKFT PO Last administered on 08:19; Start 12/28/16 at 12:30 Digoxin (Lanoxin) 125 mcg DAILY IV Last administered on 12/31/16 09:00; Start 12/29/16 at 09:00 Digoxin (Lanoxin) 125 mcg 1X ONCE IV Last administered on 12/28/16 14:36; Start 12/28/16 at 14:30; Stop 12/28/16 at 14:31; Status DC Methylprednisolone Sodium Succinate (Solu-Medrol 40mg Vial) 40 mg Q8HRS IV Last administered on 12/31/16 05:34; Start 12/28/16 at 15:00 Furosemide (Lasix) 40 mg DAILY IVP Last administered on 12/30/16 09:30; Start 12/30/16 at 10:00 Pantoprazole Sodium 40 mg 40 mg DAILYAC IVP Last administered on 12/30/16 07: 27; Start 12/29/16 at 07:30; Stop 12/31/16 at 07:25; Status DC Levofloxacin/ Dextrose (LEVAQUIN 500mg PREMIX) 100 ml @ 100 mls/hr 1X ONCE IV Last administered on 12/28/16 15:22; Start 12/28/16 at 15:00; Stop 12/28/16 at 15:59; Status DC Levofloxacin/ Dextrose (Levaquin Per Pharmacy) 1 each PRN DAILY PRN MC SEE COMMENTS; Start 12/28/16 at 15:00 Diltiazem HCl 20 mg 20 mg 1X ONCE IVP ; Start 12/28/16 at 15:00; Stop 12/28/16 at 15:01; Status DC Levofloxacin/ Dextrose (LEVAQUIN 250mg PREMIX) 50 ml @ 50 mls/hr Q24H IV Last administered on 12/29/16 14:38; Start 12/29/16 at 15:00; Stop 12/29/16 at 16:42 ; Status DC Spironolactone (Aldactone) 25 mg DAILY PO Last administered on 12/29/16 14:56 ; Start 12/29/16 at 13:15 Lisinopril 5 mg 5 mg DAILY PO Last administered on 12/31/16 08:20; Start 12/29 at 13:15 Levofloxacin/ Dextrose 100 ml @ 100 mls/hr Q24H IV Last administered on 16:50; Start 12/30/16 at 16:00 Amino Acids/ Glycerin/ Electrolytes (Procalamine) 1,000 ml @ 60 mls/hr [id number] IV Last administered on 12/31/16 04:26; Start 12/30/16 at 10:15 Albuterol Sulfate (Ventolin Neb Soln) 2.5 mg QID NEB ; Start 12/30/16 at 13:00 Pantoprazole Sodium (Protonix) 40 mg DAILYAC PO Last administered on 12/31/16 08:19; Start 12/31/16 at 07:30 Enoxaparin Sodium (Lovenox 40mg Syringe) 40 mg Q24H SQ Last administered on 11:07; Start 12/31/16 at 09:00 Active Scripts Active Hydrocodone-Apap 10-325 (Hydrocodone Bit/Acetaminophen) 1 Each Tablet 1 Tab PO Q8HRS PRN Reported Prednisone 10 Mg Tablet 10 Mg PO DAILY Proair Hfa Inhaler (Albuterol Sulfate) 8.5 Gm Hfa.aer.ad 1 Puff INH PRN Q6HRS PRN Zolpidem Tartrate 10 Mg Tablet 1 Tab PO QHS Verapamil Er (Verapamil Hcl) 180 Mg Tablet.er 180 Mg PO DAILY Pantoprazole Sodium 40 Mg Tablet.dr 1 Tab PO DAILY [place] 3 Fish Oil Softgel ([place]-3 Fatty Acids/Fish Oil) 1 Each Capsule.dr 1 Each PO DAILY Multi-Vitamin Daily (Multivitamin) 1 Each Tablet 1 Each PO Isosorbide Mononitrate Er (Isosorbide Mononitrate) 60 Mg Tab.er.24h 1.5 Tab PO DAILY Gabapentin Oral Solution (Gabapentin) 300 Mg/6 Ml Solution 300 Mg PO HS Furosemide 80 Mg Tablet 1 Tab PO DAILY Colace (Docusate Sodium) 100 Mg Capsule 1 Cap PO DAILY Cyclobenzaprine Hcl 10 Mg Tablet 1 Tab PO QHS PRN Atorvastatin Calcium 80 Mg Tablet 1 Tab PO HS PRN Aspirin 325 Mg Tablet 1 Tab PO DAILY Xanax (Alprazolam) 1 Mg Tablet 1 Tab PO TID Mucus And Cough Relief Tablet (Guaifenesin/Dextromethorphan) 1 Each Tablet 1 Each PO Q4-6HRS PRN Potassium Chloride 20 Meq Tab.er.prt 1 Tab PO BID Sucralfate 1 Gm Tablet 1 Tab PO QID Vitals/I & O Vital Sign - Last 24 Hours 12/30/16 12/30/16 12/30/16 12/30/16 11:42 12:00 12:00 13:00 Temp 97.9 97.9 Pulse 92 92 Resp 24 22 B/P 119/58 137/65 Pulse Ox 93 40 40 O2 Delivery Venturi Mask Venturi Mask Venturi Mask Venturi Mask O2 Flow Rate 12.0 12.0 12.0 12.0 12/30/16 12/30/16 12/30/16 12/30/16 14:00 15:00 16:00 16:00 Temp 97.4 97.4 Pulse 90 88 86 Resp 32 30 28 B/P 127/66 99/62 123/58 Pulse Ox 40 O2 Delivery Venturi Mask Nasal Cannula Nasal Cannula Venturi Mask O2 Flow Rate 12.0 5.0 3.0 12.0 12/30/16 12/30/16 12/30/16 12/30/16 16:47 17:00 18:00 19:00 Temp 97.7 97.7 Pulse 94 87 89 Resp 31 30 27 B/P 145/67 130/72 128/65 Pulse Ox 96 40 O2 Delivery Nasal Cannula Nasal Cannula Nasal Cannula Venturi Mask O2 Flow Rate 4.0 3.0 3.0 12.0 12/30/16 12/30/16 12/30/16 12/30/16 19:52 19:57 20:00 21:00 Pulse 86 82 Resp 30 26 B/P 136/69 108/49 Pulse Ox 95 40 40 O2 Delivery Venturi Mask Venturi Mask Venturi Mask Venturi Mask O2 Flow Rate 12.0 12.0 12.0 12.0 12/30/16 12/30/16 12/31/16 12/31/16 22:00 23:00 00:00 00:00 Temp 97.5 97.5 Pulse 77 74 72 Resp 28 22 22 B/P 105/53 117/53 134/60 Pulse Ox 40 40 40 O2 Delivery Venturi Mask Venturi Mask Venturi Mask Venturi Mask O2 Flow Rate 12.0 12.0 12.0 12.0 12/31/16 12/31/16 12/31/16 12/31/16 01:00 02:00 03:00 04:00 Pulse 76 79 75 Resp 24 35 28 B/P 130/68 177/78 143/61 Pulse Ox 40 40 40 O2 Delivery Venturi Mask Venturi Mask Venturi Mask Venturi Mask O2 Flow Rate 12.0 12.0 12.0 12.0 12/31/16 12/31/16 12/31/16 12/31/16 04:00 05:00 06:00 07:00 Temp 97.5 97.5 Pulse 77 84 77 90 Resp 30 34 30 20 B/P 150/67 176/80 160/77 169/80 Pulse Ox 40 40 40 40 O2 Delivery Venturi Mask Venturi Mask Venturi Mask Venturi Mask O2 Flow Rate 12.0 12.0 12.0 12.0 12/31/16 12/31/16 12/31/16 12/31/16 08:00 08:00 08:08 08:19 Temp 98.4 98.4 Pulse 98 95 Resp 37 B/P 202/89 194/83 Pulse Ox 35 95 O2 Delivery Venturi Mask Venturi Mask Venturi Mask O2 Flow Rate 9.0 9.0 12.0 12/31/16 12/31/16 12/31/16 12/31/16 08:20 08:20 09:00 09:00 Pulse 95 94 92 Resp 37 B/P 193/83 194/83 148/81 Pulse Ox 35 O2 Delivery Venturi Mask O2 Flow Rate 9.0 12/31/16 10:00 Pulse 98 Resp 32 B/P 176/79 Pulse Ox 35 O2 Delivery Venturi Mask O2 Flow Rate 9.0 Intake and Output 12/30/16 12/30/16 12/31/16 15:00 23:00 07:00 Intake Total 240 ml 322 ml 890 ml Output Total 910 ml 617 ml 593 ml Balance -670 ml -295 ml 297 ml ANKIT ROBERTS MD Dec 31, 2016 11:33
[2016-12-31] MEDS: hydrALAZINE 20 MG/ML VIAL. IVP PRN (12:37)
[2016-12-31 12:40] LABS: CALCIUM 9.4 mg/dL (8.5-10.1); CREATININE 0.9 mg/dL (0.6-1.0); GFR 62.8; POTASSIUM 3.9 mmol/L (3.5-5.1)
--- NOTE | 2016-12-31 13:05 | PDOC ---
PROGRESS NOTES Chief Complaint Chief Complaint 1. ACUTE on chronic hypoxic resp failure with COPD, CHF 2. NSTEMI s/p PCI with 2 stents last week 3. COPD 4. H/O CAD 5. htn 6.hld 7. GERD 8. DEmentia, mild 9. chronic back and knee pain 10. hypokalemia 11. hyomagnesemia 12. thrombocytopenia 13. rapid afib 14. systolic CHF exacerbation EF 255 15. SVT POST cath 16. PAD PLAN: .1. fu with card. post Cath , fu pulm 2. cont home meds 3. off cardizem, on dig and verapimil. ON ASA, plavix, lipitor 4.transfer to ICU ON 12/28 WITH RESP FAIlure, need bipap. add solumedrol, levaquin, on duoneb, BIPAP as needed dig iv now, will give amiodarone if needed as per card low rate of PPN for now since cannot eat with resp failure gi ppx replete K consider LTAC if not improving in next 48h, pt refuse bipap History of Present Illness History of Present Illness post cath on 12/26, 2 stents SVT at night, got adenosine 2 times, then dig sob, home o2 2.5L, now VENTIMARSK, refuse bipap very sob on 12/28 am, desat, got ABG, CXR, lasix iv ,PCO2 86 TRANSFER TO icu, still need bipap rapid afib, better refuse bipap on night of 12/29, ABG ok on 12/30 , on venti mask, canot eat since low Sat Vitals Vitals Vital Signs Date Time Temp Pulse Resp B/P Pulse Ox O2 Delivery O2 Flow Rate FiO2 12/31/16 12:37 189/89 12/31/16 12:27 93 Venturi Mask 12.0 12/31/16 12:00 98.5 92 35 98.5 Physical Exam General: Alert, mild distress Heart: Regular rate Lungs: Other (bl mild rhonchis and deminished bs) Abdomen: Normal bowel sounds Extremities: No clubbing, No cyanosis, No edema, Other (right foot mottling, bilateral posterior tibial and left DP pulses detected by doppler. unable to detect right DP pulse, 1+ bilateral LE edema. chronic venous stasis changes bi LE) Skin: No rashes, No significant lesion Labs LABS Laboratory Tests Test 12/31/16 12:28 Sodium Level 147mmol/L (136-145) Potassium Level 3.9mmol/L (3.5-5.1) Chloride Level 103mmol/L (98-107) Carbon Dioxide Level 41mmol/L (21-32) Anion Gap 3 (6-14) Blood Urea Nitrogen 50mg/dL (7-20) Creatinine 0.9mg/dL (0.6-1.0) Estimated GFR (Cockcroft-Gault) 62.8 Glucose Level 140mg/dL (70-99) Calcium Level 9.4mg/dL (8.5-10.1) Review of Systems Review of Systems no fever, chills chest pain Assessment and Plan Assessmemt and Plan Problems Medical Problems: (1) Atrial fibrillation with RVR Status: Acute (2) Cardiac ischemia Status: Acute (3) COPD exacerbation Status: Acute Problems: Comment Review of Relevant I have reviewed the following items claudia (where applicable) has been applied. Labs Laboratory Tests Test 12/30/16 08:00 12/30/16 12:00 12/31/16 12:28 O2 Saturation 91% (92-99) Arterial Blood pH 7.37 (7.35-7.45) Arterial Blood pCO2 at Patient Temp 53mmHg (35-46) Arterial Blood pO2 at Patient Temp 67mmHg (65-108) Arterial Blood HCO3 30mmol/L (21-28) Arterial Blood Base Excess 4mmol/L (-3-3) FiO2 35 Sodium Level 145mmol/L (136-145) 147mmol/L (136-145) Potassium Level 3.6mmol/L (3.5-5.1) 3.9mmol/L (3.5-5.1) Chloride Level 100mmol/L (98-107) 103mmol/L (98-107) Carbon Dioxide Level 38mmol/L (21-32) 41mmol/L (21-32) Anion Gap 7 (6-14) 3 (6-14) Blood Urea Nitrogen 71mg/dL (7-20) 50mg/dL (7-20) Creatinine 1.2mg/dL (0.6-1.0) 0.9mg/dL (0.6-1.0) Estimated GFR (Cockcroft-Gault) 45.1 62.8 Glucose Level 136mg/dL (70-99) 140mg/dL (70-99) Calcium Level 9.4mg/dL (8.5-10.1) 9.4mg/dL (8.5-10.1) Laboratory Tests Test 12/31/16 12:28 Sodium Level 147mmol/L (136-145) Potassium Level 3.9mmol/L (3.5-5.1) Chloride Level 103mmol/L (98-107) Carbon Dioxide Level 41mmol/L (21-32) Anion Gap 3 (6-14) Blood Urea Nitrogen 50mg/dL (7-20) Creatinine 0.9mg/dL (0.6-1.0) Estimated GFR (Cockcroft-Gault) 62.8 Glucose Level 140mg/dL (70-99) Calcium Level 9.4mg/dL (8.5-10.1) Medications Current Medications Albuterol/ Ipratropium 3 ml 3 ml 1X ONCE NEB Last administered on 12/25/16 05 :49; Start 12/25/16 at 05:30; Stop 12/25/16 at 05:31; Status DC Sodium Chloride (Iv Sodium Chloride 0.9% 500ml Bag) 500 ml @ 500 mls/hr 1X ONCE IV Last administered on 12/25/16 06:09; Start 12/25/16 at 06:15; Stop at 07:14; Status DC Diltiazem HCl 20 mg 20 mg 1X ONCE IVP Last administered on 12/25/16 06:30; Start 12/25/16 at 06:30; Stop 12/25/16 at 15:01; Status DC Diltiazem HCl/ Dextrose (Cardizem) 125 ml @ 10 mls/hr 1X ONCE IV Last administered on 12/25/16 06:30; Start 12/25/16 at 06:30; Stop 12/25/16 at 15:01 ; Status DC Albuterol/ Ipratropium (Duoneb) 3 ml QID NEB Last administered on 12/25/16 13: 05; Start 12/25/16 at 13:30; Stop 12/25/16 at 14:46; Status DC Aspirin (Dutch Aspirin) 325 mg DAILY PO Last administered on 12/27/16 07:56; Start 12/25/16 at 15:30; Stop 12/28/16 at 12:29; Status DC Furosemide (Lasix) 80 mg DAILY PO Last administered on 12/27/16 07:56; Start 12/25/16 at 15:30; Stop 12/28/16 at 14:50; Status DC Isosorbide Mononitrate (Imdur) 60 mg DAILY PO Last administered on 12/31/16 08 :20; Start 12/25/16 at 15:30 Pantoprazole Sodium (Protonix) 40 mg DAILY PO Last administered on 12/27/16 07 :56; Start 12/25/16 at 15:30; Stop 12/28/16 at 14:50; Status DC Potassium Chloride (Klor-Con) 20 meq BID PO Last administered on 12/29/16 08: 22; Start 12/25/16 at 21:00 Atorvastatin Calcium (Lipitor) 80 mg QHS PO Last administered on 12/28/16 21: 32; Start 12/25/16 at 21:00 Potassium Chloride (Klor-Con) 40 meq 1X ONCE PO Last administered on 15:49; Start 12/25/16 at 15:00; Stop 12/25/16 at 15:01; Status DC Albuterol/ Ipratropium 3 ml 3 ml RTQID NEB Last administered on 12/26/16 12:27 ; Start 12/25/16 at 16:00; Stop 12/26/16 at 15:35; Status DC Heparin Sodium/ Dextrose 500 ml @ 0 mls/hr CONT PRN IV SEE I/O RECORD Last administered on 12/25/16 16:00; Start 12/25/16 at 15:00; Stop 12/27/16 at 16:54 ; Status DC Heparin Sodium (Porcine) 1,900 unit PRN Q6HRS PRN IV FOR UFH LEVEL LESS THAN 0.2; Start 12/25/16 at 15:00; Stop 12/27/16 at 16:54; Status DC Diltiazem HCl (Cardizem 24hr Cd) 180 mg DAILY PO Last administered on 08:30; Start 12/25/16 at 15:30; Stop 12/26/16 at 13:17; Status DC Info 1 each 1 each PRN DAILY PRN MC SEE COMMENTS Last administered on 13:01; Start 12/25/16 at 15:15; Stop 12/28/16 at 12:31; Status DC Magnesium Sulfate/ Dextrose (Magnesium Sulfate PREMIX 2GM) 50 ml @ 25 mls/hr 1X ONCE IV Last administered on 12/25/16 17:38; Start 12/25/16 at 17:30; Stop 12/25/16 at 19:29; Status DC Albuterol Sulfate (Ventolin Neb Soln) 2.5 mg PRN Q4HRS PRN NEB SHORTNESS OF BREATH Last administered on 12/28/16 15:12; Start 12/25/16 at 17:15; Stop 12/30 at 13:00; Status DC Lorazepam (Ativan) 0.5 mg PRN Q8HRS PRN PO ANXIETY / AGITATION Last administered on 12/31/16 01:51; Start 12/25/16 at 17:15 Potassium Chloride 40 meq 40 meq 1X ONCE PO Last administered on 12/26/16 06: 34; Start 12/26/16 at 06:00; Stop 12/26/16 at 06:01; Status DC Potassium Chloride (KCl Premix 10meq) 100 ml @ 100 mls/hr Q1H IV Last administered on 12/26/16 15:29; Start 12/26/16 at 06:00; Stop 12/26/16 at 09:59 ; Status DC Hydralazine HCl (Apresoline) 10 mg PRN Q4HRS PRN IVP ELEVATED BP, SEE COMMENTS Last administered on 12/31/16 12:37; Start 12/26/16 at 08:45 Alprazolam (Xanax) 0.5 mg TID PO Last administered on 12/31/16 08:20; Start at 10:00 Cyclobenzaprine HCl (Flexeril) 10 mg PRN QHS PRN PO MUSCLE SPASMS Last administered on 12/27/16 13:21; Start 12/26/16 at 09:30 Docusate Sodium (Colace) 100 mg DAILY PO Last administered on 12/29/16 08:23; Start 12/26/16 at 10:00 Acetaminophen/ Hydrocodone Bitart (Lortab 10/325) 1 tab PRN Q8HRS PRN PO PAIN Last administered on 12/29/16 19:54; Start 12/26/16 at 09:30 Prednisone (Prednisone) 10 mg DAILY PO Last administered on 12/27/16 07:56; Start 12/26/16 at 10:00; Stop 12/28/16 at 14:50; Status DC Verapamil HCl (Calan Sr) 180 mg DAILY PO Last administered on 12/26/16 10:12; Start 12/26/16 at 10:00; Stop 12/26/16 at 13:17; Status DC Gabapentin (Neurontin) 300 mg QHS PO Last administered on 12/28/16 21:29; Start 12/26/16 at 21:00 Guaifenesin (Mucinex) 600 mg PRN BID PRN PO CONGESTION Last administered on 20:38; Start 12/26/16 at 21:00 Fish Oil (Fish Oil) 1,000 mg DAILY PO Last administered on 12/30/16 08:34; Start 12/26/16 at 10:00 Sucralfate (Carafate) 1 gm QID PO Last administered on 12/29/16 14:45; Start 12/26/16 at 13:00 Albuterol Sulfate (Ventolin Neb Soln) 2.5 mg PRN Q4HRS PRN NEB SHORTNESS OF BREATH; Start 12/26/16 at 09:30; Status Cancel Iohexol 100 ml 100 ml STK-MED ONCE .ROUTE ; Start 12/26/16 at 10:51; Stop at 10:52; Status DC Heparin Sodium/ Sodium Chloride 1,000 ml @ As Directed STK-MED ONCE .ROUTE ; Start 12/26/16 at 10:51; Stop 12/26/16 at 10:52; Status DC Lidocaine HCl 20 ml STK-MED ONCE .ROUTE ; Start 12/26/16 at 10:52; Stop at 10:53; Status DC Nitroglycerin (Nitroglycerin) 200 mcg STK-MED ONCE .ROUTE ; Start 12/26/16 at 11 :19; Stop 12/26/16 at 11:20; Status DC Verapamil HCl (Verapamil) 5 mg STK-MED ONCE .ROUTE ; Start 12/26/16 at 11:19; Stop 12/26/16 at 11:20; Status DC Heparin Sodium (Porcine) 10,000 unit STK-MED ONCE .ROUTE ; Start 12/26/16 at 11: 19; Stop 12/26/16 at 11:20; Status DC Fentanyl Citrate (Fentanyl 2ml Vial) 100 mcg STK-MED ONCE .ROUTE ; Start at 11:19; Stop 12/26/16 at 11:20; Status DC Midazolam HCl (Versed) 5 mg STK-MED ONCE .ROUTE ; Start 12/26/16 at 11:19; Stop 12/26/16 at 11:20; Status DC Nitroglycerin (Nitroglycerin) 200 mcg 1X ONCE IART Last administered on 11:30; Start 12/26/16 at 11:30; Stop 12/26/16 at 11:38; Status DC Verapamil HCl (Verapamil) 2.5 mg 1X ONCE IART Last administered on 12/26/16 11:30; Start 12/26/16 at 11:30; Stop 12/26/16 at 11:38; Status DC Heparin Sodium (Porcine) 2,500 unit 1X ONCE IART Last administered on 11:55; Start 12/26/16 at 11:30; Stop 12/26/16 at 11:38; Status DC Heparin Sodium/ Sodium Chloride 1,000 unit 1X ONCE IART Last administered on 11:54; Start 12/26/16 at 11:30; Stop 12/26/16 at 11:38; Status DC Midazolam HCl (Versed) 5 mg 1X ONCE IV Last administered on 12/26/16 11:52; Start 12/26/16 at 11:30; Stop 12/26/16 at 11:38; Status DC Fentanyl Citrate (Fentanyl 2ml Vial) 100 mcg 1X ONCE IV Last administered on 11:53; Start 12/26/16 at 11:30; Stop 12/26/16 at 11:38; Status DC Iohexol (Omnipaque 300 Mg/ml) 100 ml 1X ONCE IART Last administered on 11:53; Start 12/26/16 at 11:30; Stop 12/26/16 at 11:38; Status DC Lidocaine HCl 20 ml 1X ONCE IJ Last administered on 12/26/16 11:52; Start at 11:30; Stop 12/26/16 at 11:38; Status DC Clopidogrel Bisulfate (Plavix) 75 mg STK-MED ONCE .ROUTE ; Start 12/26/16 at 12: 00; Stop 12/26/16 at 12:01; Status DC Clopidogrel Bisulfate (Plavix) 600 mg 1X ONCE PO Last administered on 12:03; Start 12/26/16 at 12:15; Stop 12/26/16 at 12:16; Status DC Digoxin (Lanoxin) 500 mcg 1X ONCE IV Last administered on 12/26/16 13:14; Start 12/26/16 at 13:15; Stop 12/26/16 at 13:16; Status DC Adenosine (Adenocard) 12 mg 1X ONCE IV Last administered on 12/26/16 13:08; Start 12/26/16 at 13:00; Stop 12/26/16 at 13:01; Status DC Verapamil HCl 180 mg 180 mg BID PO Last administered on 12/31/16 08:19; Start 12/26/16 at 21:00 Magnesium Sulfate/ Dextrose (Magnesium Sulfate PREMIX 2GM) 50 ml @ 25 mls/hr STAT ONCE IV Last administered on 12/26/16 13:55; Start 12/26/16 at 13:15; Stop 12/26/16 at 15:14; Status DC Ipratropium [place] (Atrovent) 0.5 mg RTQID NEB Last administered on 12/27/16 11:40; Start 12/26/16 at 16:00; Stop 12/27/16 at 11:50; Status DC Digoxin (Lanoxin) 125 mcg DAILY PO Last administered on 12/27/16 13:22; Start 12/27/16 at 12:00; Stop 12/28/16 at 14:27; Status DC Albuterol/ Ipratropium (Duoneb) 3 ml RTQID NEB Last administered on 12/31/16 12:25; Start 12/27/16 at 12:00 Furosemide (Lasix) 40 mg 1X ONCE IVP Last administered on 12/28/16 06:49; Start 12/28/16 at 07:00; Stop 12/28/16 at 07:01; Status DC Methylprednisolone Sodium Succinate (Solu-Medrol 125mg Vial) 125 mg 1X ONCE IV Last administered on 12/28/16 08:39; Start 12/28/16 at 08:30; Stop 12/28/16 at 08:31; Status DC Furosemide (Lasix) 40 mg 1X ONCE IVP Last administered on 12/28/16 08:52; Start 12/28/16 at 09:00; Stop 12/28/16 at 09:01; Status DC Aspirin (Children'S Aspirin) 81 mg DAILYWBKFT PO Last administered on 08:19; Start 12/29/16 at 08:00 Clopidogrel Bisulfate (Plavix) 75 mg DAILYWBKFT PO Last administered on 08:19; Start 12/28/16 at 12:30 Digoxin (Lanoxin) 125 mcg DAILY IV Last administered on 12/31/16 09:00; Start 12/29/16 at 09:00 Digoxin (Lanoxin) 125 mcg 1X ONCE IV Last administered on 12/28/16 14:36; Start 12/28/16 at 14:30; Stop 12/28/16 at 14:31; Status DC Methylprednisolone Sodium Succinate (Solu-Medrol 40mg Vial) 40 mg Q8HRS IV Last administered on 12/31/16 05:34; Start 12/28/16 at 15:00 Furosemide (Lasix) 40 mg DAILY IVP Last administered on 12/30/16 09:30; Start 12/30/16 at 10:00 Pantoprazole Sodium 40 mg 40 mg DAILYAC IVP Last administered on 12/30/16 07: 27; Start 12/29/16 at 07:30; Stop 12/31/16 at 07:25; Status DC Levofloxacin/ Dextrose (LEVAQUIN 500mg PREMIX) 100 ml @ 100 mls/hr 1X ONCE IV Last administered on 12/28/16 15:22; Start 12/28/16 at 15:00; Stop 12/28/16 at 15:59; Status DC Levofloxacin/ Dextrose (Levaquin Per Pharmacy) 1 each PRN DAILY PRN MC SEE COMMENTS; Start 12/28/16 at 15:00 Diltiazem HCl 20 mg 20 mg 1X ONCE IVP ; Start 12/28/16 at 15:00; Stop 12/28/16 at 15:01; Status DC Levofloxacin/ Dextrose (LEVAQUIN 250mg PREMIX) 50 ml @ 50 mls/hr Q24H IV Last administered on 12/29/16 14:38; Start 12/29/16 at 15:00; Stop 12/29/16 at 16:42 ; Status DC Spironolactone (Aldactone) 25 mg DAILY PO Last administered on 12/29/16 14:56 ; Start 12/29/16 at 13:15 Lisinopril 5 mg 5 mg DAILY PO Last administered on 12/31/16 08:20; Start 12/29 at 13:15 Levofloxacin/ Dextrose 100 ml @ 100 mls/hr Q24H IV Last administered on 16:50; Start 12/30/16 at 16:00 Amino Acids/ Glycerin/ Electrolytes (Procalamine) 1,000 ml @ 60 mls/hr [id number] IV Last administered on 12/31/16 04:26; Start 12/30/16 at 10:15 Albuterol Sulfate (Ventolin Neb Soln) 2.5 mg QID NEB ; Start 12/30/16 at 13:00 Pantoprazole Sodium (Protonix) 40 mg DAILYAC PO Last administered on 12/31/16 08:19; Start 12/31/16 at 07:30 Enoxaparin Sodium (Lovenox 40mg Syringe) 40 mg Q24H SQ Last administered on 11:07; Start 12/31/16 at 09:00 Active Scripts Active Hydrocodone-Apap 10-325 (Hydrocodone Bit/Acetaminophen) 1 Each Tablet 1 Tab PO Q8HRS PRN Reported Prednisone 10 Mg Tablet 10 Mg PO DAILY Proair Hfa Inhaler (Albuterol Sulfate) 8.5 Gm Hfa.aer.ad 1 Puff INH PRN Q6HRS PRN Zolpidem Tartrate 10 Mg Tablet 1 Tab PO QHS Verapamil Er (Verapamil Hcl) 180 Mg Tablet.er 180 Mg PO DAILY Pantoprazole Sodium 40 Mg Tablet.dr 1 Tab PO DAILY Acme 3 Fish Oil Softgel (Acme-3 Fatty Acids/Fish Oil) 1 Each Capsule.dr 1 Each PO DAILY Multi-Vitamin Daily (Multivitamin) 1 Each Tablet 1 Each PO Isosorbide Mononitrate Er (Isosorbide Mononitrate) 60 Mg Tab.er.24h 1.5 Tab PO DAILY Gabapentin Oral Solution (Gabapentin) 300 Mg/6 Ml Solution 300 Mg PO HS Furosemide 80 Mg Tablet 1 Tab PO DAILY Colace (Docusate Sodium) 100 Mg Capsule 1 Cap PO DAILY Cyclobenzaprine Hcl 10 Mg Tablet 1 Tab PO QHS PRN Atorvastatin Calcium 80 Mg Tablet 1 Tab PO HS PRN Aspirin 325 Mg Tablet 1 Tab PO DAILY Xanax (Alprazolam) 1 Mg Tablet 1 Tab PO TID Mucus And Cough Relief Tablet (Guaifenesin/Dextromethorphan) 1 Each Tablet 1 Each PO Q4-6HRS PRN Potassium Chloride 20 Meq Tab.er.prt 1 Tab PO BID Sucralfate 1 Gm Tablet 1 Tab PO QID Vitals/I & O Vital Sign - Last 24 Hours 12/30/16 12/30/16 12/30/16 12/30/16 14:00 15:00 16:00 16:00 Temp 97.4 97.4 Pulse 90 88 86 Resp 32 30 28 B/P 127/66 99/62 123/58 Pulse Ox 40 O2 Delivery Venturi Mask Nasal Cannula Nasal Cannula Venturi Mask O2 Flow Rate 12.0 5.0 3.0 12.0 12/30/16 12/30/16 12/30/16 12/30/16 16:47 17:00 18:00 19:00 Temp 97.7 97.7 Pulse 94 87 89 Resp 31 30 27 B/P 145/67 130/72 128/65 Pulse Ox 96 40 O2 Delivery Nasal Cannula Nasal Cannula Nasal Cannula Venturi Mask O2 Flow Rate 4.0 3.0 3.0 12.0 12/30/16 12/30/16 212/30/16 19:52 19:57 20:00 21:00 Pulse 86 82 Resp 30 26 B/P 136/69 108/49 Pulse Ox 95 40 40 O2 Delivery Venturi Mask Venturi Mask Venturi Mask Venturi Mask O2 Flow Rate 12.0 12.0 12.0 12.0 12/30/16 12/30/16 212/31/16 22:00 23:00 00:00 00:00 Temp 97.5 97.5 Pulse 77 74 72 Resp 28 22 22 B/P 105/53 117/53 134/60 Pulse Ox 40 40 40 O2 Delivery Venturi Mask Venturi Mask Venturi Mask Venturi Mask O2 Flow Rate 12.0 12.0 12.0 12.0 12/31/16 12/31/16 12/31/16 12/31/16 01:00 02:00 03:00 04:00 Pulse 76 79 75 Resp 24 35 28 B/P 130/68 177/78 143/61 Pulse Ox 40 40 40 O2 Delivery Venturi Mask Venturi Mask Venturi Mask Venturi Mask O2 Flow Rate 12.0 12.0 12.0 12.0 12/31/16 12/31/16 12/31/16 12/31/16 04:00 05:00 06:00 07:00 Temp 97.5 97.5 Pulse 77 84 77 90 Resp 30 34 30 20 B/P 150/67 176/80 160/77 169/80 Pulse Ox 40 40 40 40 O2 Delivery Venturi Mask Venturi Mask Venturi Mask Venturi Mask O2 Flow Rate 12.0 12.0 12.0 12.0 12/31/16 12/31/16 12/31/16 12/31/16 08:00 08:00 08:08 08:19 Temp 98.4 98.4 Pulse 98 95 Resp 37 B/P 202/89 194/83 Pulse Ox 35 95 O2 Delivery Venturi Mask Venturi Mask Venturi Mask O2 Flow Rate 9.0 9.0 12.0 12/31/16 12/31/16 12/31/16 12/31/16 08:20 08:20 09:00 09:00 Pulse 95 94 92 Resp 37 B/P 193/83 194/83 148/81 Pulse Ox 35 O2 Delivery Venturi Mask O2 Flow Rate 9.0 12/31/16 12/31/16 12/31/16 12/31/16 10:00 11:00 12:00 12:00 Temp 98.5 98.5 Pulse 98 94 92 Resp 32 29 35 B/P 176/79 181/89 189/89 Pulse Ox 35 35 35 O2 Delivery Venturi Mask Venturi Mask Venturi Mask Venturi Mask O2 Flow Rate 9.0 9.0 9.0 9.0 12/31/16 12/31/16 12:27 12:37 B/P 189/89 Pulse Ox 93 O2 Delivery Venturi Mask O2 Flow Rate 12.0 Intake and Output 12/30/16 12/30/16 12/31/16 15:00 23:00 07:00 Intake Total 240 ml 322 ml 890 ml Output Total 910 ml 617 ml 593 ml Balance -670 ml -295 ml 297 ml HEYDI [email or web address] MD Dec 31, 2016 13:05
[2016-12-31] MEDS: GABAPENTIN 300 MG CAPSULE. PO SCH (20:33)
[2016-12-31] MEDS: ATORVASTATIN CALCIUM 40 MG TABLET. PO SCH (20:34)
[2016-12-31] MEDS: HALOPERIDOL LACT 5 MG/ML VIAL. IVP PRN (21:40)
[2016-12-31] MEDS ORDERED: HALOPERIDOL LACT 5 MG/ML VIAL. IVP PRN (21:45)
[2017-01-01] VITALS (19 sets, daily range): BP systolic 94–161; BP diastolic 53–90
[2017-01-01] MEDS: methylPREDNISolone SOD SUCC PF 40 MG/ML VIAL. IV SCH ×2 (05:28→12:51)
--- NOTE | 2017-01-01 07:50 | PDOC ---
PROGRESS NOTES Chief Complaint Chief Complaint 1. ACUTE on chronic hypoxic respiratory failure with COPD, CHF 2. NSTEMI s/p PCI with 2 stents last week 3. COPD 4. H/O CAD 5. HTN 6. HLP 7. GERD 8. Dementia, mild 9. Chronic back and knee pain 10. hypokalemia RESOLVED 11. hyomagnesemia RESOLVED 12. thrombocytopenia, RESOLVED. 13. Anxiety 14. systolic CHF exacerbation EF 25% 15. SVT POST cath 16. PAD PLAN: Hypoxia periodically, on BIPAP Continue diuresis, on Lasix Digoxin supplemental oxygen Episodic agitation, on PRN haldol Continue Aspirin, Plavix cardiology and Pulmonology following Decreased oral intake, on PPN prn Ativan for anxiety prn Dulcolax supp Prognosis guarded. History of Present Illness History of Present Illness no fever no chills prn afib no chest pain Vitals Vitals Vital Signs Date Time Temp Pulse Resp B/P Pulse Ox O2 Delivery O2 Flow Rate FiO2 01/01/17 06:00 84 28 133/62 95 BiPAP/CPAP 01/01/17 04:00 98.2 98.2 12/31/16 21:04 5.0 Physical Exam General: Alert, mild distress Heart: Regular rate, Normal S1, Normal S2 Lungs: Other (bl mild rhonchis and deminished bs) Abdomen: Normal bowel sounds Extremities: No clubbing, No cyanosis, No edema, Other Skin: No rashes, No significant lesion Labs LABS Laboratory Tests Test 12/31/16 12:28 Sodium Level 147mmol/L (136-145) Potassium Level 3.9mmol/L (3.5-5.1) Chloride Level 103mmol/L (98-107) Carbon Dioxide Level 41mmol/L (21-32) Anion Gap 3 (6-14) Blood Urea Nitrogen 50mg/dL (7-20) Creatinine 0.9mg/dL (0.6-1.0) Estimated GFR (Cockcroft-Gault) 62.8 Glucose Level 140mg/dL (70-99) Calcium Level 9.4mg/dL (8.5-10.1) Assessment and Plan Assessmemt and Plan Problems Medical Problems: (1) Atrial fibrillation with RVR Status: Acute (2) Cardiac ischemia Status: Acute (3) COPD exacerbation Status: Acute Problems: Comment Review of Relevant I have reviewed the following items claudia (where applicable) has been applied. Labs Laboratory Tests Test 12/30/16 08:00 12/30/16 12:00 12/31/16 12:28 O2 Saturation 91% (92-99) Arterial Blood pH 7.37 (7.35-7.45) Arterial Blood pCO2 at Patient Temp 53mmHg (35-46) Arterial Blood pO2 at Patient Temp 67mmHg (65-108) Arterial Blood HCO3 30mmol/L (21-28) Arterial Blood Base Excess 4mmol/L (-3-3) FiO2 35 Sodium Level 145mmol/L (136-145) 147mmol/L (136-145) Potassium Level 3.6mmol/L (3.5-5.1) 3.9mmol/L (3.5-5.1) Chloride Level 100mmol/L (98-107) 103mmol/L (98-107) Carbon Dioxide Level 38mmol/L (21-32) 41mmol/L (21-32) Anion Gap 7 (6-14) 3 (6-14) Blood Urea Nitrogen 71mg/dL (7-20) 50mg/dL (7-20) Creatinine 1.2mg/dL (0.6-1.0) 0.9mg/dL (0.6-1.0) Estimated GFR (Cockcroft-Gault) 45.1 62.8 Glucose Level 136mg/dL (70-99) 140mg/dL (70-99) Calcium Level 9.4mg/dL (8.5-10.1) 9.4mg/dL (8.5-10.1) Laboratory Tests Test 12/31/16 12:28 Sodium Level 147mmol/L (136-145) Potassium Level 3.9mmol/L (3.5-5.1) Chloride Level 103mmol/L (98-107) Carbon Dioxide Level 41mmol/L (21-32) Anion Gap 3 (6-14) Blood Urea Nitrogen 50mg/dL (7-20) Creatinine 0.9mg/dL (0.6-1.0) Estimated GFR (Cockcroft-Gault) 62.8 Glucose Level 140mg/dL (70-99) Calcium Level 9.4mg/dL (8.5-10.1) Medications Current Medications Albuterol/ Ipratropium 3 ml 3 ml 1X ONCE NEB Last administered on 12/25/16 05 :49; Start 12/25/16 at 05:30; Stop 12/25/16 at 05:31; Status DC Sodium Chloride (Iv Sodium Chloride 0.9% 500ml Bag) 500 ml @ 500 mls/hr 1X ONCE IV Last administered on 12/25/16 06:09; Start 12/25/16 at 06:15; Stop at 07:14; Status DC Diltiazem HCl 20 mg 20 mg 1X ONCE IVP Last administered on 12/25/16 06:30; Start 12/25/16 at 06:30; Stop 12/25/16 at 15:01; Status DC Diltiazem HCl/ Dextrose (Cardizem) 125 ml @ 10 mls/hr 1X ONCE IV Last administered on 12/25/16 06:30; Start 12/25/16 at 06:30; Stop 12/25/16 at 15:01 ; Status DC Albuterol/ Ipratropium (Duoneb) 3 ml QID NEB Last administered on 12/25/16 13: 05; Start 12/25/16 at 13:30; Stop 12/25/16 at 14:46; Status DC Aspirin (Dutch Aspirin) 325 mg DAILY PO Last administered on 12/27/16 07:56; Start 12/25/16 at 15:30; Stop 12/28/16 at 12:29; Status DC Furosemide (Lasix) 80 mg DAILY PO Last administered on 12/27/16 07:56; Start 12/25/16 at 15:30; Stop 12/28/16 at 14:50; Status DC Isosorbide Mononitrate (Imdur) 60 mg DAILY PO Last administered on 12/31/16 08 :20; Start 12/25/16 at 15:30 Pantoprazole Sodium (Protonix) 40 mg DAILY PO Last administered on 12/27/16 07 :56; Start 12/25/16 at 15:30; Stop 12/28/16 at 14:50; Status DC Potassium Chloride (Klor-Con) 20 meq BID PO Last administered on 12/29/16 08: 22; Start 12/25/16 at 21:00 Atorvastatin Calcium (Lipitor) 80 mg QHS PO Last administered on 12/31/16 20: 34; Start 12/25/16 at 21:00 Potassium Chloride (Klor-Con) 40 meq 1X ONCE PO Last administered on 15:49; Start 12/25/16 at 15:00; Stop 12/25/16 at 15:01; Status DC Albuterol/ Ipratropium 3 ml 3 ml RTQID NEB Last administered on 12/26/16 12:27 ; Start 12/25/16 at 16:00; Stop 12/26/16 at 15:35; Status DC Heparin Sodium/ Dextrose 500 ml @ 0 mls/hr CONT PRN IV SEE I/O RECORD Last administered on 12/25/16 16:00; Start 12/25/16 at 15:00; Stop 12/27/16 at 16:54 ; Status DC Heparin Sodium (Porcine) 1,900 unit PRN Q6HRS PRN IV FOR UFH LEVEL LESS THAN 0.2; Start 12/25/16 at 15:00; Stop 12/27/16 at 16:54; Status DC Diltiazem HCl (Cardizem 24hr Cd) 180 mg DAILY PO Last administered on 08:30; Start 12/25/16 at 15:30; Stop 12/26/16 at 13:17; Status DC Info 1 each 1 each PRN DAILY PRN MC SEE COMMENTS Last administered on 13:01; Start 12/25/16 at 15:15; Stop 12/28/16 at 12:31; Status DC Magnesium Sulfate/ Dextrose (Magnesium Sulfate PREMIX 2GM) 50 ml @ 25 mls/hr 1X ONCE IV Last administered on 12/25/16 17:38; Start 12/25/16 at 17:30; Stop 12/25/16 at 19:29; Status DC Albuterol Sulfate (Ventolin Neb Soln) 2.5 mg PRN Q4HRS PRN NEB SHORTNESS OF BREATH Last administered on 12/28/16 15:12; Start 12/25/16 at 17:15; Stop 12/30 at 13:00; Status DC Lorazepam (Ativan) 0.5 mg PRN Q8HRS PRN PO ANXIETY / AGITATION Last administered on 12/31/16 01:51; Start 12/25/16 at 17:15 Potassium Chloride 40 meq 40 meq 1X ONCE PO Last administered on 12/26/16 06: 34; Start 12/26/16 at 06:00; Stop 12/26/16 at 06:01; Status DC Potassium Chloride (KCl Premix 10meq) 100 ml @ 100 mls/hr Q1H IV Last administered on 12/26/16 15:29; Start 12/26/16 at 06:00; Stop 12/26/16 at 09:59 ; Status DC Hydralazine HCl (Apresoline) 10 mg PRN Q4HRS PRN IVP ELEVATED BP, SEE COMMENTS Last administered on 12/31/16 12:37; Start 12/26/16 at 08:45 Alprazolam (Xanax) 0.5 mg TID PO Last administered on 12/31/16 20:33; Start at 10:00 Cyclobenzaprine HCl (Flexeril) 10 mg PRN QHS PRN PO MUSCLE SPASMS Last administered on 12/27/16 13:21; Start 12/26/16 at 09:30 Docusate Sodium (Colace) 100 mg DAILY PO Last administered on 12/29/16 08:23; Start 12/26/16 at 10:00 Acetaminophen/ Hydrocodone Bitart (Lortab 10/325) 1 tab PRN Q8HRS PRN PO PAIN Last administered on 12/29/16 19:54; Start 12/26/16 at 09:30 Prednisone (Prednisone) 10 mg DAILY PO Last administered on 12/27/16 07:56; Start 12/26/16 at 10:00; Stop 12/28/16 at 14:50; Status DC Verapamil HCl (Calan Sr) 180 mg DAILY PO Last administered on 12/26/16 10:12; Start 12/26/16 at 10:00; Stop 12/26/16 at 13:17; Status DC Gabapentin (Neurontin) 300 mg QHS PO Last administered on 12/31/16 20:33; Start 12/26/16 at 21:00 Guaifenesin (Mucinex) 600 mg PRN BID PRN PO CONGESTION Last administered on 20:38; Start 12/26/16 at 21:00 Fish Oil (Fish Oil) 1,000 mg DAILY PO Last administered on 12/30/16 08:34; Start 12/26/16 at 10:00 Sucralfate (Carafate) 1 gm QID PO Last administered on 12/31/16 20:33; Start 12/26/16 at 13:00 Albuterol Sulfate (Ventolin Neb Soln) 2.5 mg PRN Q4HRS PRN NEB SHORTNESS OF BREATH; Start 12/26/16 at 09:30; Status Cancel Iohexol 100 ml 100 ml STK-MED ONCE .ROUTE ; Start 12/26/16 at 10:51; Stop at 10:52; Status DC Heparin Sodium/ Sodium Chloride 1,000 ml @ As Directed STK-MED ONCE .ROUTE ; Start 12/26/16 at 10:51; Stop 12/26/16 at 10:52; Status DC Lidocaine HCl 20 ml STK-MED ONCE .ROUTE ; Start 12/26/16 at 10:52; Stop at 10:53; Status DC Nitroglycerin (Nitroglycerin) 200 mcg STK-MED ONCE .ROUTE ; Start 12/26/16 at 11 :19; Stop 12/26/16 at 11:20; Status DC Verapamil HCl (Verapamil) 5 mg STK-MED ONCE .ROUTE ; Start 12/26/16 at 11:19; Stop 12/26/16 at 11:20; Status DC Heparin Sodium (Porcine) 10,000 unit STK-MED ONCE .ROUTE ; Start 12/26/16 at 11: 19; Stop 12/26/16 at 11:20; Status DC Fentanyl Citrate (Fentanyl 2ml Vial) 100 mcg STK-MED ONCE .ROUTE ; Start at 11:19; Stop 12/26/16 at 11:20; Status DC Midazolam HCl (Versed) 5 mg STK-MED ONCE .ROUTE ; Start 12/26/16 at 11:19; Stop 12/26/16 at 11:20; Status DC Nitroglycerin (Nitroglycerin) 200 mcg 1X ONCE IART Last administered on 11:30; Start 12/26/16 at 11:30; Stop 12/26/16 at 11:38; Status DC Verapamil HCl (Verapamil) 2.5 mg 1X ONCE IART Last administered on 12/26/16 11:30; Start 12/26/16 at 11:30; Stop 12/26/16 at 11:38; Status DC Heparin Sodium (Porcine) 2,500 unit 1X ONCE IART Last administered on 11:55; Start 12/26/16 at 11:30; Stop 12/26/16 at 11:38; Status DC Heparin Sodium/ Sodium Chloride 1,000 unit 1X ONCE IART Last administered on 11:54; Start 12/26/16 at 11:30; Stop 12/26/16 at 11:38; Status DC Midazolam HCl (Versed) 5 mg 1X ONCE IV Last administered on 12/26/16 11:52; Start 12/26/16 at 11:30; Stop 12/26/16 at 11:38; Status DC Fentanyl Citrate (Fentanyl 2ml Vial) 100 mcg 1X ONCE IV Last administered on 11:53; Start 12/26/16 at 11:30; Stop 12/26/16 at 11:38; Status DC Iohexol (Omnipaque 300 Mg/ml) 100 ml 1X ONCE IART Last administered on 11:53; Start 12/26/16 at 11:30; Stop 12/26/16 at 11:38; Status DC Lidocaine HCl 20 ml 1X ONCE IJ Last administered on 12/26/16 11:52; Start at 11:30; Stop 12/26/16 at 11:38; Status DC Clopidogrel Bisulfate (Plavix) 75 mg STK-MED ONCE .ROUTE ; Start 12/26/16 at 12: 00; Stop 12/26/16 at 12:01; Status DC Clopidogrel Bisulfate (Plavix) 600 mg 1X ONCE PO Last administered on 12:03; Start 12/26/16 at 12:15; Stop 12/26/16 at 12:16; Status DC Digoxin (Lanoxin) 500 mcg 1X ONCE IV Last administered on 12/26/16 13:14; Start 12/26/16 at 13:15; Stop 12/26/16 at 13:16; Status DC Adenosine (Adenocard) 12 mg 1X ONCE IV Last administered on 12/26/16 13:08; Start 12/26/16 at 13:00; Stop 12/26/16 at 13:01; Status DC Verapamil HCl 180 mg 180 mg BID PO Last administered on 12/31/16 20:33; Start 12/26/16 at 21:00 Magnesium Sulfate/ Dextrose (Magnesium Sulfate PREMIX 2GM) 50 ml @ 25 mls/hr STAT ONCE IV Last administered on 12/26/16 13:55; Start 12/26/16 at 13:15; Stop 12/26/16 at 15:14; Status DC Ipratropium Pablo (Atrovent) 0.5 mg RTQID NEB Last administered on 12/27/16 11:40; Start 12/26/16 at 16:00; Stop 12/27/16 at 11:50; Status DC Digoxin (Lanoxin) 125 mcg DAILY PO Last administered on 12/27/16 13:22; Start 12/27/16 at 12:00; Stop 12/28/16 at 14:27; Status DC Albuterol/ Ipratropium (Duoneb) 3 ml RTQID NEB Last administered on 12/31/16 21:00; Start 12/27/16 at 12:00 Furosemide (Lasix) 40 mg 1X ONCE IVP Last administered on 12/28/16 06:49; Start 12/28/16 at 07:00; Stop 12/28/16 at 07:01; Status DC Methylprednisolone Sodium Succinate (Solu-Medrol 125mg Vial) 125 mg 1X ONCE IV Last administered on 12/28/16 08:39; Start 12/28/16 at 08:30; Stop 12/28/16 at 08:31; Status DC Furosemide (Lasix) 40 mg 1X ONCE IVP Last administered on 12/28/16 08:52; Start 12/28/16 at 09:00; Stop 12/28/16 at 09:01; Status DC Aspirin (Children'S Aspirin) 81 mg DAILYWBKFT PO Last administered on 08:19; Start 12/29/16 at 08:00 Clopidogrel Bisulfate (Plavix) 75 mg DAILYWBKFT PO Last administered on 08:19; Start 12/28/16 at 12:30 Digoxin (Lanoxin) 125 mcg DAILY IV Last administered on 12/31/16 09:00; Start 12/29/16 at 09:00 Digoxin (Lanoxin) 125 mcg 1X ONCE IV Last administered on 12/28/16 14:36; Start 12/28/16 at 14:30; Stop 12/28/16 at 14:31; Status DC Methylprednisolone Sodium Succinate (Solu-Medrol 40mg Vial) 40 mg Q8HRS IV Last administered on 01/01/17 05:28; Start 12/28/16 at 15:00 Furosemide (Lasix) 40 mg DAILY IVP Last administered on 12/30/16 09:30; Start 12/30/16 at 10:00 Pantoprazole Sodium 40 mg 40 mg DAILYAC IVP Last administered on 12/30/16 07: 27; Start 12/29/16 at 07:30; Stop 12/31/16 at 07:25; Status DC Levofloxacin/ Dextrose (LEVAQUIN 500mg PREMIX) 100 ml @ 100 mls/hr 1X ONCE IV Last administered on 12/28/16 15:22; Start 12/28/16 at 15:00; Stop 12/28/16 at 15:59; Status DC Levofloxacin/ Dextrose (Levaquin Per Pharmacy) 1 each PRN DAILY PRN MC SEE COMMENTS; Start 12/28/16 at 15:00 Diltiazem HCl 20 mg 20 mg 1X ONCE IVP ; Start 12/28/16 at 15:00; Stop 12/28/16 at 15:01; Status DC Levofloxacin/ Dextrose (LEVAQUIN 250mg PREMIX) 50 ml @ 50 mls/hr Q24H IV Last administered on 12/29/16 14:38; Start 12/29/16 at 15:00; Stop 12/29/16 at 16:42 ; Status DC Spironolactone (Aldactone) 25 mg DAILY PO Last administered on 12/29/16 14:56 ; Start 12/29/16 at 13:15 Lisinopril 5 mg 5 mg DAILY PO Last administered on 12/31/16 08:20; Start 12/29 at 13:15; Stop 12/31/16 at 13:04; Status DC Levofloxacin/ Dextrose 100 ml @ 100 mls/hr Q24H IV Last administered on 16:34; Start 12/30/16 at 16:00 Amino Acids/ Glycerin/ Electrolytes (Procalamine) 1,000 ml @ 60 mls/hr [id number] IV Last administered on 12/31/16 20:31; Start 12/30/16 at 10:15 Albuterol Sulfate (Ventolin Neb Soln) 2.5 mg QID NEB ; Start 12/30/16 at 13:00; Stop 12/31/16 at 21:25; Status DC Pantoprazole Sodium (Protonix) 40 mg DAILYAC PO Last administered on 12/31/16 08:19; Start 12/31/16 at 07:30 Enoxaparin Sodium (Lovenox 40mg Syringe) 40 mg Q24H SQ Last administered on 11:07; Start 12/31/16 at 09:00 Lisinopril (Prinivil) 10 mg DAILY PO ; Start 01/01/17 at 09:00 Haloperidol Lactate (Haldol) 1 mg PRN Q4HRS PRN IVP MILD AGITATION Last administered on 12/31/16 21:40; Start 12/31/16 at 21:30 Haloperidol Lactate (Haldol) 5 mg PRN Q4HRS PRN IVP SEVERE AGITATION; Start at 21:45 Active Scripts Active Hydrocodone-Apap 10-325 (Hydrocodone Bit/Acetaminophen) 1 Each Tablet 1 Tab PO Q8HRS PRN Reported Prednisone 10 Mg Tablet 10 Mg PO DAILY Proair Hfa Inhaler (Albuterol Sulfate) 8.5 Gm Hfa.aer.ad 1 Puff INH PRN Q6HRS PRN Zolpidem Tartrate 10 Mg Tablet 1 Tab PO QHS Verapamil Er (Verapamil Hcl) 180 Mg Tablet.er 180 Mg PO DAILY Pantoprazole Sodium 40 Mg Tablet.dr 1 Tab PO DAILY [place] 3 Fish Oil Softgel ([place]-3 Fatty Acids/Fish Oil) 1 Each Capsule.dr 1 Each PO DAILY Multi-Vitamin Daily (Multivitamin) 1 Each Tablet 1 Each PO Isosorbide Mononitrate Er (Isosorbide Mononitrate) 60 Mg Tab.er.24h 1.5 Tab PO DAILY Gabapentin Oral Solution (Gabapentin) 300 Mg/6 Ml Solution 300 Mg PO HS Furosemide 80 Mg Tablet 1 Tab PO DAILY Colace (Docusate Sodium) 100 Mg Capsule 1 Cap PO DAILY Cyclobenzaprine Hcl 10 Mg Tablet 1 Tab PO QHS PRN Atorvastatin Calcium 80 Mg Tablet 1 Tab PO HS PRN Aspirin 325 Mg Tablet 1 Tab PO DAILY Xanax (Alprazolam) 1 Mg Tablet 1 Tab PO TID Mucus And Cough Relief Tablet (Guaifenesin/Dextromethorphan) 1 Each Tablet 1 Each PO Q4-6HRS PRN Potassium Chloride 20 Meq Tab.er.prt 1 Tab PO BID Sucralfate 1 Gm Tablet 1 Tab PO QID Vitals/I & O Vital Sign - Last 24 Hours 12/31/16 12/31/16 12/31/16 12/31/16 08:00 08:00 08:08 08:19 Temp 98.4 98.4 Pulse 98 95 Resp 37 B/P 202/89 194/83 Pulse Ox 35 95 O2 Delivery Venturi Mask Venturi Mask Venturi Mask O2 Flow Rate 9.0 9.0 12.0 12/31/16 12/31/16 12/31/16 12/31/16 08:20 08:20 09:00 09:00 Pulse 95 94 92 Resp 37 B/P 193/83 194/83 148/81 Pulse Ox 35 O2 Delivery Venturi Mask O2 Flow Rate 9.0 12/31/16 12/31/16 12/31/16 12/31/16 10:00 11:00 12:00 12:00 Temp 98.5 98.5 Pulse 98 94 92 Resp 32 29 35 B/P 176/79 181/89 189/89 Pulse Ox 35 35 35 O2 Delivery Venturi Mask Venturi Mask Venturi Mask Venturi Mask O2 Flow Rate 9.0 9.0 9.0 9.0 12/31/16 12/31/16 12/31/16 12/31/16 12:27 12:37 13:00 14:00 Pulse 100 96 Resp 44 31 B/P 189/89 184/69 179/79 Pulse Ox 93 35 35 O2 Delivery Venturi Mask Venturi Mask Venturi Mask O2 Flow Rate 12.0 9.0 9.0 12/31/16 12/31/16 12/31/16 12/31/16 15:00 16:00 16:00 16:11 Temp 97.5 97.5 Pulse 94 96 Resp 39 39 B/P 174/77 171/88 Pulse Ox 40 40 93 O2 Delivery Venturi Mask Venturi Mask Venturi Mask Venturi Mask O2 Flow Rate 12.0 12.0 9.0 12.0 12/31/16 12/31/16 12/31/16 12/31/16 17:00 18:15 19:00 20:00 Pulse 94 94 92 94 Resp 37 31 B/P 158/68 164/78 172/82 157/77 Pulse Ox 40 95 92 94 O2 Delivery Venturi Mask Venturi Mask O2 Flow Rate 12.0 9.0 12/31/16 12/31/16 12/31/16 12/31/16 20:00 20:33 21:00 21:04 Pulse 94 93 B/P 157/77 179/79 Pulse Ox 100 93 O2 Delivery Venturi Mask Nasal Cannula O2 Flow Rate 12.0 5.0 12/31/16 12/31/16 12/31/16 12/31/16 22:00 23:00 23:51 23:59 Temp 98.1 98.1 Pulse 95 103 Resp 35 B/P 141/71 114/71 Pulse Ox 98 98 97 O2 Delivery BiPAP/CPAP BiPAP/CPAP Bi-pap 01/01/17 01/01/17 01/01/17 01/01/17 00:00 00:43 01:00 02:00 Temp 98.1 98.1 Pulse 91 89 89 88 Resp 28 28 B/P 161/81 135/80 107/61 Pulse Ox 93 98 98 94 O2 Delivery BiPAP/CPAP BiPAP/CPAP 01/01/17 01/01/17 01/01/17 01/01/17 02:25 03:00 04:00 04:00 Temp 98.2 98.2 Pulse 91 82 Resp 28 28 B/P 121/64 123/67 Pulse Ox 94 95 96 O2 Delivery BiPAP/CPAP BiPAP/CPAP BiPAP/CPAP Bi-pap 01/01/17 01/01/17 01/01/17 04:25 05:00 06:00 Pulse 90 84 Resp 28 28 B/P 137/60 133/62 Pulse Ox 95 95 95 O2 Delivery BiPAP/CPAP BiPAP/CPAP BiPAP/CPAP Intake and Output 12/31/16 12/31/16 01/01/17 15:00 23:00 07:00 Intake Total 240 ml 766 ml 832 ml Output Total 490 ml 345 ml 1000 ml Balance -250 ml 421 ml -168 ml NIMISHA SOUZA MD Jan 01, 2017 07:50
[2017-01-01 07:53] LABS: BASO % 0 % (0-3); EOS % 0 % (0-3); HEMOGLOBIN 12.6 g/dL (12.0-15.5); LYMPH # 0.2 x10^3/uL (1.0-4.8); LYMPH % 4 % (24-48); MEAN CORPUSCULAR HEMOGLOBIN 26 pg (25-35); MEAN CORPUSCULAR HGB CONC 32 g/dL (31-37); MEAN CORPUSCULAR VOLUME 83 fL (79-100); MONO % 11 % (0-9); NEUT % 85 % (31-73); PLATELET COUNT 151 x10^3/uL (140-400); WHITE BLOOD COUNT 5.3 x10^3/uL (4.0-11.0)
[2017-01-01 07:58] LABS: CALCIUM 9.4 mg/dL (8.5-10.1); CREATININE 0.7 mg/dL (0.6-1.0)
[2017-01-01] MEDS ORDERED: BISACODYL 10 MG SUPP.RECT PR PRN (08:45)
[2017-01-01] MEDS: CLOPIDOGREL BISULFATE 75 MG TABLET PO SCH (08:47)
[2017-01-01] MEDS: VERAPAMIL SR 180 MG TABLET.ER. PO SCH (08:47)
[2017-01-01] MEDS: FUROSEMIDE 40 MG/4 ML VIAL IVP SCH (08:47)
[2017-01-01] MEDS: DIGOXIN 500 MCG/2 ML AMPUL. IV SCH (08:48)
[2017-01-01] MEDS: OMEGA-3 FATTY ACIDS/FISH OIL 1,000 MG CAPSULE. PO SCH (08:48)
[2017-01-01] MEDS: ALPRAZOLAM 0.5 MG TABLET PO SCH ×2 (08:48→12:50)
[2017-01-01] MEDS: SUCRALFATE 1 GM TABLET. PO SCH ×3 (08:48→17:16)
[2017-01-01] MEDS: SPIRONOLACTONE 25 MG TABLET PO SCH (08:49)
[2017-01-01] MEDS: ENOXAPARIN 40 MG/0.4 ML DISP.SYRIN. SQ SCH (08:49)
[2017-01-01] MEDS: PANTOPRAZOLE 40 MG TABLET. PO SCH (08:49)
[2017-01-01] MEDS: POTASSIUM CHLORIDE 20 MEQ TABLET.ER. PO SCH (08:49)
[2017-01-01] MEDS: DOCUSATE SODIUM 100 MG CAPSULE PO SCH (08:49)
[2017-01-01] MEDS: ISOSORBIDE MONONITRATE ER 60 MG TAB.ER.24H PO SCH (08:49)
[2017-01-01] MEDS: ASPIRIN 81 MG TAB.CHEW PO SCH (08:50)
[2017-01-01] MEDS ORDERED: LISINOPRIL 10 MG TABLET PO SCH (09:00)
[2017-01-01] MEDS: IPRATRPIUM/ALBUTEROL 0.5/2.5MG 3 ML NEBU. NEB SCH ×3 (09:25→16:31)
[2017-01-01 11:20] LABS: PLT ESTIMATE ADEQUATE (ADEQUATE)
--- NOTE | 2017-01-01 12:18 | PDOC ---
CAMI JOHNSON CIRCUIT DESIGNER 01/01/17 1218: CARDIO Progress Notes Date and Time Date of Service 01/01/17 Time of Evaluation 1045 Subjective Subjective: No Chest Pain, No Palpitations, Other (drowsy, on BiPAP) Vitals Vitals Vital Signs Date Time Temp Pulse Resp B/P Pulse Ox O2 Delivery O2 Flow Rate FiO2 01/01/17 11:00 98.5 100 30 120/59 93 Nasal Cannula 98.5 01/01/17 09:25 5.0 Weight Weight [ ] Input and Output Intake and Output Intake and Output 01/01/17 07:00 Intake Total 1958 ml Output Total 1925 ml Balance 33 ml Intake Oral 435 ml IV Total 741 ml Blood Product IV Normal Saline Flush 782 ml Output Urine Total 1925 ml Laboratory Labs Laboratory Tests Test 12/31/16 12:28 01/01/17 07:20 Sodium Level 147mmol/L (136-145) 147mmol/L (136-145) Potassium Level 3.9mmol/L (3.5-5.1) 4.0mmol/L (3.5-5.1) Chloride Level 103mmol/L (98-107) 104mmol/L (98-107) Carbon Dioxide Level 41mmol/L (21-32) 40mmol/L (21-32) Anion Gap 3 (6-14) 3 (6-14) Blood Urea Nitrogen 50mg/dL (7-20) 35mg/dL (7-20) Creatinine 0.9mg/dL (0.6-1.0) 0.7mg/dL (0.6-1.0) Estimated GFR (Cockcroft-Gault) 62.8 84.0 Glucose Level 140mg/dL (70-99) 160mg/dL (70-99) Calcium Level 9.4mg/dL (8.5-10.1) 9.4mg/dL (8.5-10.1) White Blood Count 5.3x10^3/uL (4.0-11.0) Red Blood Count 4.80x10^6/uL (3.50-5.40) Hemoglobin 12.6g/dL (12.0-15.5) Hematocrit 40.0% (36.0-47.0) Mean Corpuscular Volume 83fL (79-100) Mean Corpuscular Hemoglobin 26pg (25-35) Mean Corpuscular Hemoglobin Concent 32g/dL (31-37) Red Cell Distribution Width 16.0% (11.5-14.5) Platelet Count 151x10^3/uL (140-400) Neutrophils (%) (Auto) 85% (31-73) Lymphocytes (%) (Auto) 4% (24-48) Monocytes (%) (Auto) 11% (0-9) Eosinophils (%) (Auto) 0% (0-3) Basophils (%) (Auto) 0% (0-3) Neutrophils # (Auto) 4.5x10^3uL (1.8-7.7) Lymphocytes # (Auto) 0.2x10^3/uL (1.0-4.8) Monocytes # (Auto) 0.6x10^3/uL (0.0-1.1) Eosinophils # (Auto) 0.0x10^3/uL (0.0-0.7) Basophils # (Auto) 0.0x10^3/uL (0.0-0.2) Segmented Neutrophils % 89% (35-66) Band Neutrophils % 2% (0-9) Lymphocytes % 7% (24-48) Monocytes % 2% (0-10) Platelet Estimate Adequate (ADEQUATE) Physical Exam HEENT: Neck Supple W Full Motion Chest: Symmetric LUNGS: Other (diminished bases. continuous BiPAP) Heart: S1S2, RRR, murmurs, other (tele: SR/ST with PAF. distant heart tones) Abdomen: Soft N/T Extremities: No Edema Neurology: other (minimally responsive) Assessment Assessment 1. atrial dysrhythmia 2. acute on chronic systolic heart failure 3. NICM 4. Acute on Chronic Respiratory Failure with AE COPD 5. NSTEMI s/p cath with no obstructive CAD 6. Hypertension 7. Peripheral artery disease Recommendations Continues to have intermittent AFIB; rate controlled with digoxin and Verapamil ASA for stroke prevention. ?candidacy for long-term OAC/NOAC- will discuss with primary cardiology. compensated from HF standpoint; convert Lasix to oral Continue supportive care Management of respiratory failure per pulmonary. JIM GONZALEZ MD 01/02/17 0813: CARDIO Progress Notes Plan Plan Late entry for 01/01/2017 Pt. seen and examined. Agree with above CERTIFIED ATHLETIC TRAINER Note. No significant resp improvement Consider palliative care. Stable from CV perspective. Will f/u at [facility]. CAMI JOHNSON APRN Jan 01, 2017 12:18 JIM GONZALEZ MD Jan 02, 2017 08:13
[2017-01-01] MEDS ORDERED: FUROSEMIDE 80 MG TABLET PO SCH (12:30)
[2017-01-01] MEDS: HALOPERIDOL LACT 5 MG/ML VIAL. IVP PRN (15:00)
--- NOTE | 2017-01-01 15:59 | PDOC ---
PULMONARY PROGRESS NOTES Subjective refused bipap, on vm, 40%, no cp. has sob, cough, no runny nose, confused at times Vitals Vital Signs Date Time Temp Pulse Resp B/P Pulse Ox O2 Delivery O2 Flow Rate FiO2 01/01/17 15:06 98.6 97 28 94/53 92 Venturi Mask 98.6 01/01/17 13:28 9.0 Comments ros as mentioned as above other sys otherwise neg. ROS: No Nausea, No Chest Pain, No Abdominal Pain, No Increase Cough General: Alert HEENT: Other (nc at, perrl, throat nose clear) Lungs: Other (bl mild rhonchis and deminished bs) Cardiovascular: S1, S2 Abdomen: Soft, Non-tender, Other ([place]) Neuro Exam: Alert Extremities: No Edema, Other Skin: Warm Labs Laboratory Tests Test 12/31/16 12:28 01/01/17 07:20 Sodium Level 147mmol/L (136-145) 147mmol/L (136-145) Potassium Level 3.9mmol/L (3.5-5.1) 4.0mmol/L (3.5-5.1) Chloride Level 103mmol/L (98-107) 104mmol/L (98-107) Carbon Dioxide Level 41mmol/L (21-32) 40mmol/L (21-32) Anion Gap 3 (6-14) 3 (6-14) Blood Urea Nitrogen 50mg/dL (7-20) 35mg/dL (7-20) Creatinine 0.9mg/dL (0.6-1.0) 0.7mg/dL (0.6-1.0) Estimated GFR (Cockcroft-Gault) 62.8 84.0 Glucose Level 140mg/dL (70-99) 160mg/dL (70-99) Calcium Level 9.4mg/dL (8.5-10.1) 9.4mg/dL (8.5-10.1) White Blood Count 5.3x10^3/uL (4.0-11.0) Red Blood Count 4.80x10^6/uL (3.50-5.40) Hemoglobin 12.6g/dL (12.0-15.5) Hematocrit 40.0% (36.0-47.0) Mean Corpuscular Volume 83fL (79-100) Mean Corpuscular Hemoglobin 26pg (25-35) Mean Corpuscular Hemoglobin Concent 32g/dL (31-37) Red Cell Distribution Width 16.0% (11.5-14.5) Platelet Count 151x10^3/uL (140-400) Neutrophils (%) (Auto) 85% (31-73) Lymphocytes (%) (Auto) 4% (24-48) Monocytes (%) (Auto) 11% (0-9) Eosinophils (%) (Auto) 0% (0-3) Basophils (%) (Auto) 0% (0-3) Neutrophils # (Auto) 4.5x10^3uL (1.8-7.7) Lymphocytes # (Auto) 0.2x10^3/uL (1.0-4.8) Monocytes # (Auto) 0.6x10^3/uL (0.0-1.1) Eosinophils # (Auto) 0.0x10^3/uL (0.0-0.7) Basophils # (Auto) 0.0x10^3/uL (0.0-0.2) Segmented Neutrophils % 89% (35-66) Band Neutrophils % 2% (0-9) Lymphocytes % 7% (24-48) Monocytes % 2% (0-10) Platelet Estimate Adequate (ADEQUATE) Laboratory Tests Test 01/01/17 07:20 White Blood Count 5.3x10^3/uL (4.0-11.0) Red Blood Count 4.80x10^6/uL (3.50-5.40) Hemoglobin 12.6g/dL (12.0-15.5) Hematocrit 40.0% (36.0-47.0) Mean Corpuscular Volume 83fL (79-100) Mean Corpuscular Hemoglobin 26pg (25-35) Mean Corpuscular Hemoglobin Concent 32g/dL (31-37) Red Cell Distribution Width 16.0% (11.5-14.5) Platelet Count 151x10^3/uL (140-400) Neutrophils (%) (Auto) 85% (31-73) Lymphocytes (%) (Auto) 4% (24-48) Monocytes (%) (Auto) 11% (0-9) Eosinophils (%) (Auto) 0% (0-3) Basophils (%) (Auto) 0% (0-3) Neutrophils # (Auto) 4.5x10^3uL (1.8-7.7) Lymphocytes # (Auto) 0.2x10^3/uL (1.0-4.8) Monocytes # (Auto) 0.6x10^3/uL (0.0-1.1) Eosinophils # (Auto) 0.0x10^3/uL (0.0-0.7) Basophils # (Auto) 0.0x10^3/uL (0.0-0.2) Segmented Neutrophils % 89% (35-66) Band Neutrophils % 2% (0-9) Lymphocytes % 7% (24-48) Monocytes % 2% (0-10) Platelet Estimate Adequate (ADEQUATE) Sodium Level 147mmol/L (136-145) Potassium Level 4.0mmol/L (3.5-5.1) Chloride Level 104mmol/L (98-107) Carbon Dioxide Level 40mmol/L (21-32) Anion Gap 3 (6-14) Blood Urea Nitrogen 35mg/dL (7-20) Creatinine 0.7mg/dL (0.6-1.0) Estimated GFR (Cockcroft-Gault) 84.0 Glucose Level 160mg/dL (70-99) Calcium Level 9.4mg/dL (8.5-10.1) Medications Active Scripts Medications Dose Route/Sig Days Date Category Prednisone 10 Mg Tablet 10 Mg PO DAILY 09/13/16 Reported Proair Hfa Inhaler (Albuterol Sulfate) 8.5 Gm Hfa.aer.ad 1 Puff INH PRN Q6HRS PRN 08/01/16 Reported Hydrocodone-Apap 10-325 (Hydrocodone Bit/Acetaminophen) 1 Each Tablet 1 Tab PO Q8HRS PRN 07/19/16 Rx Zolpidem Tartrate 10 Mg Tablet 1 Tab PO QHS 10/31/15 Reported Verapamil Er (Verapamil Hcl) 180 Mg Tablet.er 180 Mg PO DAILY 10/31/15 Reported Pantoprazole Sodium 40 Mg Tablet.dr 1 Tab PO DAILY 10/31/15 Reported [place] 3 Fish Oil Softgel ([place]-3 Fatty Acids/Fish Oil) 1 Each Capsule.dr 1 Each PO DAILY 10/31/15 Reported Multi-Vitamin Daily (Multivitamin) 1 Each Tablet 1 Each PO 10/31/15 Reported Isosorbide Mononitrate Er (Isosorbide Mononitrate) 60 Mg Tab.er.24h 1.5 Tab PO DAILY 10/31/15 Reported Gabapentin Oral Solution (Gabapentin) 300 Mg/6 Ml Solution 300 Mg PO HS 10/31/15 Reported Furosemide 80 Mg Tablet 1 Tab PO DAILY 10/31/15 Reported Colace (Docusate Sodium) 100 Mg Capsule 1 Cap PO DAILY 10/31/15 Reported Cyclobenzaprine Hcl 10 Mg Tablet 1 Tab PO QHS PRN 10/31/15 Reported Atorvastatin Calcium 80 Mg Tablet 1 Tab PO HS PRN 10/31/15 Reported Aspirin 325 Mg Tablet 1 Tab PO DAILY 10/31/15 Reported Xanax (Alprazolam) 1 Mg Tablet 1 Tab PO TID 10/31/15 Reported Mucus And Cough Relief Tablet (Guaifenesin/Dextromethorphan) 1 Each Tablet 1 Each PO Q4-6HRS PRN 10/31/15 Reported Potassium Chloride 20 Meq Tab.er.prt 1 Tab PO BID 10/31/15 Reported Sucralfate 1 Gm Tablet 1 Tab PO QID 10/31/15 Reported Comments cxr reviewed, increased inter marking, Impression . 1. [id number] hypoxemic respiratory failure. 2. Mild acute exacerbation of chronic obstructive pulmonary disease. 3. Non-ST segment elevation, status post previous percutaneous coronary with stents, now NSTEMI s/p cath with no obstructive CAD 4. Coronary artery disease as described above. 5. Chronic obstructive pulmonary disease. 6. Gastroesophageal reflux. 7. Dementia. 8. Electrolytes abnormalities. 9. Chronic diastolic heart failure. 10. Peripheral arterial disease. 11. Nonspecific anxiety. Plan . PRN BIPAP AVOID INCREASE OW ANTIBX FOLLOW CARD INPUT ARTERIAL STUDY BELOW PER PCP MAY NEED LTAC ARTERIAL STUDY There is multifocal plaque seen throughout the vasculature of the bilateral legs. In addition there are monophasic waveforms seen bilaterally which can be seen with hemodynamically significant regions of narrowing. The bilateral peroneal arteries are not visualized therefore occlusion not excluded. Soft tissue edema is visualized ESCOBAR BALL MD Jan 01, 2017 15:59
--- NOTE | 2017-01-02 15:11 | PDOC3 ---
Discharge Summary* Date of Discharge: Jan 01, 2017 Admitting Diagnosis Problems Medical Problems: (1) Atrial fibrillation with RVR Status: Acute (2) Cardiac ischemia Status: Acute (3) COPD exacerbation Status: Acute Final Diagnosis 1. ACUTE on chronic hypoxic respiratory failure with COPD, CHF 2. NSTEMI s/p PCI with 2 stents last week 3. COPD 4. H/O CAD 5. HTN 6. HLP 7. GERD 8. Dementia, mild 9. Chronic back and knee pain 10. hypokalemia RESOLVED 11. hyomagnesemia RESOLVED 12. thrombocytopenia, RESOLVED. 13. Anxiety 14. systolic CHF exacerbation EF 25% 15. SVT POST cath 16. PAD Brief Hospital Course Ms. Vásquez is a 66 old female admitted for sob, s/p PCI, respiratory failure on BIPAP. She was sent to LTAC by Dr Tom. Please see progress notes for details. Scheduled Alprazolam (Xanax) 1 TAB PO TID (Reported) Aspirin (Aspirin) 1 TAB PO DAILY (Reported) Docusate Sodium (Colace) 1 CAP PO DAILY (Reported) Furosemide (Furosemide) 1 TAB PO DAILY (Reported) Gabapentin (Gabapentin Oral Solution) 300 MG PO HS (Reported) Isosorbide Mononitrate (Isosorbide Mononitrate Er) 1.5 TAB PO DAILY (Reported) Innis-3 Fatty Acids/Fish Oil (Innis 3 Fish Oil Softgel) 1 EACH PO DAILY ( Reported) Pantoprazole Sodium (Pantoprazole Sodium) 1 TAB PO DAILY (Reported) Potassium Chloride (Potassium Chloride) 1 TAB PO BID (Reported) Prednisone (Prednisone) 10 MG PO DAILY (Reported) Sucralfate (Sucralfate) 1 TAB PO QID (Reported) Verapamil Hcl (Verapamil Er) 180 MG PO DAILY (Reported) Zolpidem Tartrate (Zolpidem Tartrate) 1 TAB PO QHS (Reported) Scheduled PRN Albuterol Sulfate (Proair Hfa Inhaler) 1 PUFF INH PRN Q6HRS PRN PRN SHORTNESS OF BREATH (Reported) Atorvastatin Calcium (Atorvastatin Calcium) 1 TAB PO HS PRN PRN HYPERTENSION, SEE COMMENTS (Reported) Cyclobenzaprine Hcl (Cyclobenzaprine Hcl) 1 TAB PO QHS PRN PRN MUSCLE SPASMS ( Reported) Guaifenesin/Dextromethorphan (Mucus And Cough Relief Tablet) 1 EACH PO Q4-6HRS PRN PRN COUGH (Reported) Hydrocodone Bit/Acetaminophen (Hydrocodone-Apap 10-325 ) 1 TAB PO Q8HRS PRN PRN PAIN Miscellaneous Medications Multivitamin (Multi-Vitamin Daily) 1 EACH PO (Reported) Time Spent Total time spent with patient [] minutes for coordination of care, counseling, and education. NIMISHA SOUZA MD Jan 02, 2017 15:11
== END 2017-01-01 18:35 | DRG 280 ==
LOC: ER 05:18 → 2 NORTH 06:29 → 2 SOUTH 12-26 17:21 → 1 WEST ICU 12-28 11:36
PROVIDERS: ADMIT Internal Medicine; ATTEND Internal Medicine
PROC: 4A023N7 Measurement of Cardiac Sampling and Pressure, Left Heart, Percutaneous Approach (ICD-10-PCS; principal; 2016-12-26)
PROC: B2111ZZ Fluoroscopy of Multiple Coronary Arteries using Low Osmolar Contrast (ICD-10-PCS; 2016-12-26)
PROC: B2151ZZ Fluoroscopy of Left Heart using Low Osmolar Contrast (ICD-10-PCS; 2016-12-26)
DX: I21.4 Non-ST elevation (NSTEMI) myocardial infarction (principal); J96.21 Acute and chronic respiratory failure with hypoxia; I50.43 Acute on chronic combined systolic (congestive) and diastolic (congestive) heart failure; I42.9 Cardiomyopathy, unspecified; I47.1 Supraventricular tachycardia; J44.1 Chronic obstructive pulmonary disease with (acute) exacerbation; D69.6 Thrombocytopenia, unspecified; E78.5 Hyperlipidemia, unspecified; I11.0 Hypertensive heart disease with heart failure; E87.6 Hypokalemia; F02.80 Dementia in other diseases classified elsewhere, unspecified severity, without behavioral disturbance, psychotic disturbance, mood disturbance, and anxiety; F17.210 Nicotine dependence, cigarettes, uncomplicated; F41.9 Anxiety disorder, unspecified; G30.9 Alzheimer's disease, unspecified; I25.10 Atherosclerotic heart disease of native coronary artery without angina pectoris; I48.0 Paroxysmal atrial fibrillation; I73.9 Peripheral vascular disease, unspecified; K21.9 Gastro-esophageal reflux disease without esophagitis; R32 Unspecified urinary incontinence; F32.9 Major depressive disorder, single episode, unspecified; K59.00 Constipation, unspecified; M19.90 Unspecified osteoarthritis, unspecified site; Z53.20 Procedure and treatment not carried out because of patient's decision for unspecified reasons; Z91.14 Patient's other noncompliance with medication regimen; Z90.49 Acquired absence of other specified parts of digestive tract; Z90.710 Acquired absence of both cervix and uterus; Z79.899 Other long term (current) drug therapy; Z91.19 Patient's noncompliance with other medical treatment and regimen; Z95.5 Presence of coronary angioplasty implant and graft; Z99.81 Dependence on supplemental oxygen; Z79.82 Long term (current) use of aspirin
CPT/HCPCS: 36415; 36600; 71010; 80048; 80061; 81001; 82805; 83735; 83880; 84132; 84484; 85007; 85027; 85520; 87641; 87804; 93005; 93458; 93925; 94250; 94640; 94660; 94760; 96365; C1769; C1892; C9113; J0153; J0360; J1160; J1630; J1650; J1940; J1956; J2250; J2920; J2930; J3010; J3480; J3490; J7040; J7060; J7512; J7620; J7644; Q9967; 99291-25